=== PATIENT | female | born 1995 | race Caucasian/White ===

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

== ENCOUNTER 2017-02-23 21:36 | Observation (INO) | payer OTHER ==
[2017-02-23] MEDS: LACTATED RINGERS 1,000 ML IV ONE (22:55)
[2017-02-23 23:06] LABS: Basophils % (A) 0 %; Eosinophils % (A) 0 %; HCT 37.3 % (34.0-46.0); HGB 12.1 gm/dL (11.4-16.0); Lymphocytes % (A) 16 %; MCH 30.5 pg (25.0-35.0); MCHC 32.4 g/dL (31.0-37.0); MCV 94.2 fL (80.0-100.0); Mean Platelet Volume 7.7; Monocytes # (A) 0.4 k/uL (0-1.0); Monocytes % (A) 4 %; Neutrophils # (A) 10.1 k/uL (1.3-7.7); Neutrophils % (A) 80 %; Platelet Count 236 k/uL (150-450); RBC 3.96 m/uL (3.80-5.40); RDW 13.4 % (11.5-15.5); WBC 12.7 k/uL (4.0-11.0)
[2017-02-23 23:29] LABS: Appearance,Urine Cloudy (Clear); Bilirubin,Urine Negative (Negative); Blood,Urine Negative (Negative); Color,Urine Yellow; Glucose,Urine (UA) Negative (Negative); Ketones,Urine 4+ (Negative); Leukocyte Esterase,Urine Large (Negative); Mucus,Urine Many /hpf; Nitrite,Urine Negative (Negative); PH, Urine 6.5 (5.0-8.0); Protein,Urine 1+ (Negative); RBC,Urine 2 /hpf (0-5); Specific Gravity,Urine 1.019 (1.001-1.035); Squamous Epithelial Cell,Urine 10 /hpf (0-4); Urobilinogen,Urine <2.0 mg/dL (<2.0); WBC,Urine 13 /hpf (0-5)
[2017-02-23] MEDS ORDERED: BETAMET ACET-BETAMETH SOD PHOS 6 MG/ML VIAL IM SCH (23:45)
[2017-02-24 00:04] LABS: Amphetamine Screen,Urine Not Detected (NotDetected); Barbiturate Screen,Urine Not Detected (NotDetected); Benzodiazepines Screen,Urine Not Detected (NotDetected); Cocaine Screen,Urine Not Detected (NotDetected); Methadone Screen, Urine Not Detected (NotDetected); Opiate Screen,Urine Not Detected (NotDetected); Oxycodone Screen, Urine Not Detected (NotDetected); Phencyclidine Screen,Urine Not Detected (NotDetected); Tricyclic Antidepressant,Urine Not Detected (NotDetected); Urn Cannabinoid Scrn Detected (NotDetected)
[2017-02-24 00:31] VITALS: BMI 28.9
[2017-02-24] MEDS: LACTATED RINGERS 1,000 ML IV ONE (03:19)
--- NOTE | 2017-02-24 06:21 | P.HPOB ---
History of Present Illness H&P Date: 02/24/17 Chief Complaint: Contractions This patient is a 21-year-old 2 para 1 female estimated date of confinement 04/02/2017 estimated gestational age 34-5/7 weeks gestation who was admitted last evening with complaints of contractions. Patient states that she' s been having these contractions for several weeks but they've increased significantly yesterday. Patient's care is per Dr. Galvan it appears to be complicated by noncompliance. Patient has had a lapse in her visits however was most recently seen last week. Patient has not done glucose testing. Patient also had a recent delivery approximately 10 months ago. On admission here patient's cervix is 1 cm dilated per the nurse, fibronectin was not obtained prior to the exam. Patient is having contractions approximately every 2-4 minutes that she rates as 8 out of 10. Review of Systems Genitourinary: Reports Menstruation: Reports amenorrhea Past Medical History Past Medical History: Asthma Additional Past Medical History / Comment(s): Patient had a vaginal delivery in May of last year. This was at 39 weeks. Patient is a history of positive group B strep with previous . blood work shows she is oh positive, rubella immune, RPR nonreactive, hepatitis B is negative, HIV is nonreactive. She did not do her 1 hour Glucola. History of Any Multi-Drug Resistant Organisms: None Reported Past Surgical History: No Surgical Hx Reported Past Anesthesia/Blood Transfusion Reactions: No Reported Reaction Past Psychological History: No Psychological Hx Reported Smoking Status: Former smoker Past Alcohol Use History: None Reported Past Drug Use History: None Reported - Past Family History Father Family Medical History: Asthma, Cancer Additional Family Medical History / Comment(s): melanomna Medications and Allergies Home Medications Medication Instructions Recorded Confirmed Type Acetaminophen Tab [Tylenol Tab] 325 - 650 mg PO Q6H PRN 11/16/15 02/23/17 History Ibuprofen [Motrin] 600 mg PO Q6HR PRN #30 tab 06/02/16 02/23/17 Rx Allergies Allergy/AdvReac Type Severity Reaction Status Date / Time patel flavor Allergy Anaphylaxis Verified 02/23/17 21:46 grape Allergy Anaphylaxis Verified 02/23/17 21:46 latex Allergy Rash/Hives Verified 02/23/17 21:46 Mushroom Allergy Anaphylaxis Verified 02/23/17 21:46 shellfish derived [Shrimp] Allergy Anaphylaxis Verified 02/23/17 21:46 coconut AdvReac Nausea & Verified 02/23/17 21:46 Vomiting codeine AdvReac Swelling Verified 02/23/17 21:46 Exam - Vital Signs Vital signs: Vital Signs Temp Pulse Resp BP Pulse Ox 02/24/17 00:01 98.2 F 81 16 117/66 98 02/23/17 22:30 97 F L 93 16 118/73 98 Intake and Output 02/23/17 02/23/17 02/24/17 14:59 22:59 06:59 Other: Weight 71.668 kg 71.668 kg Patient Weight 02/24/17 06:59 Weight 71.668 kg - OBG Physical Exam Abdomen: bowel sounds normal, no diffuse tenderness, no bruit present, no guarding noted, no hepatomegaly, no splenomegaly, no mass Vulva: both: normal Cervix: no lesion, no discharge Uterus: enlarged Results CBC and urinalysis are normal. Toxicology screen is consistent with marijuana use. Result Diagrams: 02/23/17 22:55 Abnormal Lab Results - Last 24 Hours (Table) 02/23/17 02/23/17 02/23/17 Range/Units 22:55 23:10 23:10 WBC 12.7 H (4.0-11.0) k/uL Neutrophils # 10.1 H (1.3-7.7) k/uL Urine Appearance Cloudy H (Clear) Urine Protein 1+ H (Negative) Urine Ketones 4+ H (Negative) Ur Leukocyte Esterase Large H (Negative) Urine WBC 13 H (0-5) /hpf Ur Squamous Epith Cells 10 H (0-4) /hpf Urine Mucus Many H (None) /hpf U Marijuana (THC) Screen Detected H (NotDetected) Assessment and Plan Assessment: This is a 21-year-old 2 para 1 female 34-5/7 weeks' gestation with contractions. Despite IV hydration patient continues to have contractions and therefore she is going to be admitted for observation, Celestone administration, complete ultrasound this morning. Patient will need a psychosocial rehabilitation counselor consult at some point due to THC use. (1) contractions Current Visit: Yes Status: Acute Code(s): O47.9 - FALSE LABOR, UNSPECIFIED SNOMED Code(s): 702189747 (2) Substance abuse Current Visit: Yes Status: Acute Code(s): F19.10 - OTHER PSYCHOACTIVE SUBSTANCE ABUSE, UNCOMPLICATED SNOMED Code(s): 60410601
--- NOTE | 2017-02-24 06:39 | P.MSEPDOC ---
Presenting Problems - Arrival Data Date of Arrival on Unit: 02/23/17 Time of Arrival on Unit: 21:36 Mode of Transport: Portable - Complaint OB-Reason for Admission/Chief Complaint: Possible Onset of Labor Medical History - Information : 2 Para: 1 Term: 1 : 0 Abortions: Spontaneous or Elective: 0 Number of Living Children: 1 - Gestational Age Gestational Age by [place] (wks/days): 34 Weeks and 5 Days Review of Systems - Review of Systems Constitutional: No problems Breast: No problems ENT: No problems Cardiovascular: No problems Respiratory: No problems Gastrointestinal: No problems Genitourinary: No problems Musculoskeletal: No problems Neurological: No problems Skin: No problems Vital Signs - Temperature Temperature: 98.2 F Temperature Source: Temporal Artery Scan - Pulse Left Brachial Pulse Rate: 81 Pulse Assessment Method: Automatic Cuff - Respirations Respiratory Rate: 16 Oxygen Delivery Method: Room Air O2 Sat by Pulse Oximetry: 98 - Blood Pressure Left Arm Blood Pressure: 117/66 Blood Pressure Mean: 83 Blood Pressure Source: Automatic Cuff Medical Screen Scoring (Pre) - Cervical Exam Dilation: 1-3 cm = 1 Membranes: Intact - Uterine Contractions Frequency: < 36 weeks = 6 Duration: N/A Intensity: N/A - Maternal Vital Signs Maternal Temperature: N/A Maternal Blood Pressure: N/A Signs of Preeclampsia: N/A Maternal Respirations: N/A - Pain Assessment Pain Location and Character: Abdomen Pain Scale Used: Numeric (1 - 10) Pain Intensity: 8 Pain Description: *Acute, Cramping Pain Frequency: Intermittent Pain Duration: 5 Pain Duration Units: Minutes Pain Behavior: Facial Grimacing, Vocalization Pain Aggravating Factors: Contractions Non-Pharmacological Interventions: Darkened Room, Distraction - Maternal Trauma Maternal Trauma: N/A - Assessment Baseline FHR: 135 Heart Rate - NICHD Category: Category I (Normal) = 0 NST: Reactive Position: N/A Station: N/A - Total Score Total Score (Pre): 7 - Level of Risk Level of Risk: Medium (6-9) Physician Notification (Pre) - Physician Notified Physician Notified Date: 02/24/17 Physician Notified Time: 22:30 Physician/Practitioner Notifed:: Dr. Richards Spoke With: Dr. Richards New Order Received: Yes - Notification Comment Comment: Dr. Richards given report on pt in triage, c/o of contraction, reactice nst, vag. exam of /high. Contractions tracing q2-3 mins. Orders recieved for IV hyrdation, 500. ml bolus, collect CBC and urine. Call with results. Medical Screen Scoring (Post) - Cervical Exam Dilation: Exam Deferred Effacement: Exam Deferred Membranes: Intact - Uterine Contractions Frequency: < 36 weeks = 6 Duration: N/A Intensity: N/A - Maternal Vital Signs Maternal Temperature: N/A Maternal Blood Pressure: N/A Signs of Preeclampsia: N/A Maternal Respirations: N/A - Pain Assessment Pain Location and Character: Abdomen Pain Scale Used: Numeric (1 - 10) Pain Intensity: 5 Pain Frequency: Intermittent Pain Duration: 30 Pain Duration Units: Minutes Pain Behavior: None Exhibited Pain Aggravating Factors: Contractions Non-Pharmacological Interventions: Darkened Room, Inactivity - Assessment Heart Rate: 135 Heart Rate - NICHD Category: Category I (Normal) = 0 NST: Reactive Position: N/A Station: N/A - Total Score Total Score (Post): 6 - Post Treatment Level of Risk Post Treatment Level of Risk: Medium (6-9) Physician Notification (Post) - Physician Notified Physician Notified Date: 02/24/17 Physician Notified Time: 23:35 Physician/Practitioner Notified:: Dr. Richards Spoke With: Dr. Richards New Order Received: Yes - Notification Comment Comment: Dr. Richards given report on pt in triage lab results from CBC and U/A. Orders recieved to admit pt for observation, pt to be on bedrest with bathroom privledges. [place] dose of Celestone with repeat in 24 hours. Order a urine tox screen. Orders for complete u/s to be completed in am. Dr. Richards would be in early to see pt. I agree with the RN Medical Screening Exam: Yes Risk & Benefit of care provided described in d/c instruction: Yes Diagnosis: FALSE LABOR BEFORE 37 COMPLETED WEEKS OF GEST, THIRD TRI
--- NOTE | 2017-02-24 07:25 | P.DS ---
Providers Date of admission: 02/23/17 23:38 Expected date of discharge: 02/24/17 Attending physician: Sheila Galvan - Discharge Diagnosis(es) (1) contractions Current Visit: Yes Status: Acute Hospital Course: 21-year-old presented at 34 weeks and 5 days with contractions. Her cervix was 1 cm dilated, 60 effaced, and high in the pelvis. She was evans every 2 minutes upon admission and she was feeling them intensely. After some IV fluids and rest the contractions did space out and she stopped feeling them. heart tones 130-135 with moderate variability and reactive. Urinalysis was contaminated but a urine drug screen was positive for some marijuana. Ultrasound was being performed prior to discharge. She was given a dose of Celestone on 02/23/2017 11:30 at night and will need to return tonight for another dose. However since she is no longer inferiorly and the contractions and her cervix has not made any cervical change she will be discharged home. 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 Plan - Discharge Summary New Discharge Prescriptions: No Action Acetaminophen Tab [Tylenol Tab] 325 - 650 mg PO Q6H PRN PRN Reason: Pain Ibuprofen [Motrin] 600 mg PO Q6HR PRN #30 tab PRN Reason: Mild Pain Or Fever >= 100.5 Discharge Medication List Acetaminophen Tab [Tylenol Tab] 325 - 650 mg PO Q6H PRN 11/16/15 [History] Ibuprofen [Motrin] 600 mg PO Q6HR PRN #30 tab 06/02/16 [Rx] Follow up Appointment(s)/Referral(s): Sheila Galvan DO [Doctor of Osteopathic Medicine] - 1 Week
[2017-02-24 10:04] VITALS: BP 110/63; PULSE 95; RESP 18; TEMP 97.6
--- NOTE | 2017-02-24 10:16 | US ---
EXAMINATION TYPE: US OB >= 14 wk fetus DATE OF EXAM: 02/24/2017 COMPARISON: None CLINICAL HISTORY: Complete OB Ultrasound for labor TECHNIQUE: 09/09/2016 GESTATIONAL AGE / DATING Physician Established: (34 weeks/5 days) EDC: 04/02/2017 Dates by LMP: LMP unknown Dates by First Scan: (35 weeks/0 days) EDC: 03/31/2017 Dates by Current Scan: (34 weeks/0 days) EDC: 04/07/2017 Beta HCG (if available): Not available at this time SURVEY IUP: Single PLACENTA: Anterior PREVIA: No Previa GUSTABO: 11.3 cm Normal CERVICAL LENGTH (transabdominal: norm > 3.0cm): not able to obtain at this time; head low in pelvis s hadows out cervix, RN notified BIOMETRY PRESENTATION: Vertex LIE: Oblique BPD: 8.6 cm 34 weeks / 5 days HC: 30.6 cm 34 weeks / 1 days AC: 30.4 cm 34 weeks / 3 days FL: 6.7 cm 34 weeks / 3 days ESTIMATED WEIGHT IN GRAMS: 2422 grams ESTIMATED WEIGHT IN LBS/OZ: 5 lbs. 5 oz. WEIGHT PERCENTAGE BASED ON ESTABLISHED DATES: 37% HC/AC: 1.0 Normal FL/AC: 22 Normal HEART RATE: 119 bpm RHYTHM: Normal IMPRESSION: Single viable intrauterine as noted above.
== END 2017-02-24 08:10 | disposition home or self-care (01) ==
LOC: FBPOP 21:36 → 4FBP 23:38
PROVIDERS: ADMIT Obstetrics & Gynecology; ATTEND Obstetrics & Gynecology
DX: O60.03 Preterm labor without delivery, third trimester (principal); Z3A.34 34 weeks gestation of pregnancy; Z91.19 Patient's noncompliance with other medical treatment and regimen; J45.909 Unspecified asthma, uncomplicated; O99.513 Diseases of the respiratory system complicating pregnancy, third trimester; Z87.891 Personal history of nicotine dependence; Z82.5 Family history of asthma and other chronic lower respiratory diseases; Z91.02 Food additives allergy status; Z91.040 Latex allergy status; Z88.5 Allergy status to narcotic agent; Z91.018 Allergy to other foods; O99.323 Drug use complicating pregnancy, third trimester; F19.10 Other psychoactive substance abuse, uncomplicated
CPT/HCPCS: 59025; 99214; 96360 ×2; 96361; 96372 ×2; 84112; 85025; 81001; 80306; 76805; G0378 ×2; J0702

== ENCOUNTER 2017-02-24 20:07 | Outpatient (CLI) | payer OTHER ==
[2017-02-24] MEDS ORDERED: BETAMET ACET-BETAMETH SOD PHOS 6 MG/ML VIAL IM SCH (20:30)
[2017-02-24 20:38] VITALS: BP 110/67; PULSE 96; RESP 16; TEMP 98.2
--- NOTE | 2017-05-12 12:10 | P.MSEPDOC ---
Presenting Problems - Arrival Data Date of Arrival on Unit: 02/24/17 Time of Arrival on Unit: 20:07 Mode of Transport: Ambulatory Medical History - Information : 2 Para: 1 Term: 1 : 0 Abortions: Spontaneous or Elective: 0 Number of Living Children: 1 - Gestational Age Gestational Age by [place] (wks/days): 34 Weeks and 5 Days Vital Signs - Temperature Temperature: 98.2 F Temperature Source: Temporal Artery Scan - Pulse Right Brachial Pulse Rate: 96 Pulse Assessment Method: Automatic Cuff - Respirations Respiratory Rate: 16 Oxygen Delivery Method: Room Air O2 Sat by Pulse Oximetry: 100 - Blood Pressure Right Arm Blood Pressure: 110/67 Blood Pressure Mean: 81 Blood Pressure Source: Automatic Cuff Medical Screen Scoring (Post) - Cervical Exam Dilation: Exam Deferred Effacement: Exam Deferred - Uterine Contractions Frequency: N/A Duration: N/A Intensity: N/A - Maternal Vital Signs Maternal Temperature: N/A Maternal Respirations: N/A - Maternal Trauma Maternal Trauma: N/A - Assessment Heart Rate - NICHD Category: Category I (Normal) = 0 NST: Reactive Position: N/A - Total Score Total Score (Post): 0 - Post Treatment Level of Risk Post Treatment Level of Risk: Low (0-5) Physician Notification (Post) - Physician Notified Physician Notified Date: 02/24/17 Physician Notified Time: 20:31 Spoke With: sagar [place] Order Received: Yes - Notification Comment Comment: D/c home after celestone and NST Disposition - Disposition OB Disposition: Discharge to home, Written follow up instructions reviewed Discharge Date: 02/24/17 Discharge Time: 20:45 I agree with the RN Medical Screening Exam: Yes Risk & Benefit of care provided described in d/c instruction: Yes Diagnosis: LABOR WITHOUT DELIVERY, THIRD TRIMESTER
== END 2017-02-24 20:45 | disposition home or self-care (01) ==
LOC: FBPOP 20:07
PROVIDERS: ATTEND Obstetrics & Gynecology
DX: O60.03 Preterm labor without delivery, third trimester (principal); Z3A.34 34 weeks gestation of pregnancy
CPT/HCPCS: 59025; 96372; G0463; J0702; 99213

== ENCOUNTER → 2017-05-01 | Outpatient (CLI) | payer SELFPAY | END | disposition home or self-care (01) | LOC: LABWHC1 16:42 | PROVIDERS: ATTEND Obstetrics & Gynecology | DX: N91.2 Amenorrhea, unspecified (principal) | CPT/HCPCS: 36415; 84702 ==

== ENCOUNTER 2017-08-10 12:02 | Emergency (ER) | payer OTHER ==
[2017-08-10 13:16] LABS: Appearance,Urine Clear (Clear); Bilirubin,Urine Negative (Negative); Blood,Urine Moderate (Negative); Color,Urine Yellow; Glucose,Urine (UA) Negative (Negative); Ketones,Urine Negative (Negative); Leukocyte Esterase,Urine Negative (Negative); Mucus,Urine Occasional /hpf; Nitrite,Urine Negative (Negative); Protein,Urine Negative (Negative); RBC,Urine <1 /hpf (0-5); Specific Gravity,Urine 1.016 (1.001-1.035); Squamous Epithelial Cell,Urine 2 /hpf (0-4); Urobilinogen,Urine <2.0 mg/dL (<2.0); WBC,Urine 1 /hpf (0-5)
[2017-08-10 13:22] LABS: Basophils % (A) 0 %; Eosinophils # (A) 0.2 k/uL (0-0.7); Eosinophils % (A) 2 %; HCT 38.1 % (34.0-46.0); HGB 13.2 gm/dL (11.4-16.0); Lymphocytes # (A) 2.4 k/uL (1.0-4.8); Lymphocytes % (A) 35 %; MCH 30.2 pg (25.0-35.0); MCHC 34.7 g/dL (31.0-37.0); MCV 87.2 fL (80.0-100.0); Monocytes # (A) 0.3 k/uL (0-1.0); Monocytes % (A) 4 %; Neutrophils % (A) 57 %; Platelet Count 245 k/uL (150-450); RBC 4.38 m/uL (3.80-5.40); RDW 12.3 % (11.5-15.5)
[2017-08-10 13:37] LABS: ALT 32 U/L (9-52); AST 24 U/L (14-36); Albumin 4.3 g/dL (3.5-5.0); Alkaline Phosphatase 55 U/L (38-126); Anion Gap 9 mmol/L; Blood Urea Nitrogen 9 mg/dL (7-17); Calcium 9.4 mg/dL (8.4-10.2); Carbon Dioxide 26 mmol/L (22-30); Chloride 106 mmol/L (98-107); Glucose 84 mg/dL (74-99); Potassium 4.8 mmol/L (3.5-5.1); Sodium 141 mmol/L (137-145); Total Bilirubin 0.3 mg/dL (0.2-1.3); Total Protein 6.7 g/dL (6.3-8.2)
--- NOTE | 2017-08-10 13:46 | US ---
EXAMINATION TYPE: US pelvic complete DATE OF EXAM: 08/10/2017 COMPARISON: NONE CLINICAL HISTORY: Pain. TECHNIQUE: Transabdominal sonographic images of the pelvis were acquired. Date of LMP: Mid may EXAM MEASUREMENTS: Uterus: 7.4 x 3.5 x 4.6 cm Endometrial Stripe: 0.9 cm Right Ovary: 2.8 x 1.7 x 2.0 cm Left Ovary: 2.3 x 1.6 x 1.4 cm ER patient who states she may be and is having bleeding. 1. Uterus: Anteverted wnl 2. Endometrium: wnl 3. Right Ovary: wnl 4. Left Ovary: wnl 5. Bilateral Adnexa: wnl 6. Posterior cul-de-sac: wnl IMPRESSION: No current evidence of intrauterine . Correlate with beta-hCG level to determine the need for short-term follow-up serum serial beta hCGs and ultrasound. Ovaries appear unremarkable .
--- NOTE | 2017-08-10 14:00 | ED ---
General Adult HPI - General Chief complaint: Vaginal Bleeding Stated complaint: bleeding poss Time Seen by Provider: 08/10/17 12:20 Source: patient, RN notes reviewed Mode of arrival: ambulatory Limitations: no limitations - History of Present Illness Initial comments: This is a 22-year-old female presents emergency Department with chief complaint of vaginal bleeding. Patient states that she has lower abdominal cramping enlarged but clots. Patient states that she had a positive test a week to ago but states that she had negative along with a positive. Patient states she's not sure this is a false positive. Patient states that she's had 2 prior pregnancies. Patient states her INDUSTRIAL THERAPIST is Dr. Galvan. Denies any fevers or chills no dysuria. - Related Data Home Medications Medication Instructions Recorded Confirmed Acetaminophen Tab [Tylenol Tab] 1,000 mg PO Q6HR PRN 08/10/17 08/10/17 Allergies Allergy/AdvReac Type Severity Reaction Status Date / Time patel flavor Allergy Anaphylaxis Verified 08/10/17 12:19 grape Allergy Anaphylaxis Verified 08/10/17 12:19 Influenza Virus Vaccines Allergy Rash/Hives Verified 08/10/17 12:19 latex Allergy Rash/Hives Verified 08/10/17 12:19 Mushroom Allergy Anaphylaxis Verified 08/10/17 12:19 shellfish derived [Shrimp] Allergy Anaphylaxis Verified 08/10/17 12:19 coconut AdvReac Nausea & Verified 08/10/17 12:19 Vomiting codeine AdvReac Swelling Verified 08/10/17 12:19 Review of Systems ROS Statement: Those systems with pertinent positive or pertinent negative responses have been documented in the HPI. ROS Other: All systems not noted in ROS Statement are negative. Past Medical History Past Medical History: Asthma Additional Past Medical History / Comment(s): Patient had a vaginal delivery in May of last year. This was at 39 weeks. Patient is a history of positive group B strep with previous . blood work shows she is O positive, rubella immune, RPR nonreactive, hepatitis B is negative, HIV is nonreactive. She did not do her 1 hour Glucola. GBS+ History of Any Multi-Drug Resistant Organisms: None Reported Past Surgical History: No Surgical Hx Reported Past Anesthesia/Blood Transfusion Reactions: No Reported Reaction Past Psychological History: No Psychological Hx Reported Smoking Status: Former smoker Past Alcohol Use History: None Reported Past Drug Use History: Marijuana - Past Family History Father Family Medical History: Asthma, Cancer Additional Family Medical History / Comment(s): melanomna General Exam Limitations: no limitations General appearance: alert, in no apparent distress Head exam: Present: atraumatic, normocephalic, normal inspection Respiratory exam: Present: normal lung sounds bilaterally. Absent: respiratory distress, wheezes, rales, rhonchi, stridor Cardiovascular Exam: Present: regular rate, normal rhythm, normal heart sounds. Absent: systolic murmur, diastolic murmur, rubs, gallop, clicks GI/Abdominal exam: Present: soft, normal bowel sounds. Absent: distended, tenderness, guarding, rebound, rigid Back exam: Absent: CVA tenderness (R), CVA tenderness (L) Skin exam: Present: warm, dry, intact, normal color. Absent: rash Course Vital Signs 08/10/17 12:03 Temperature 98.1 F Pulse Rate 81 Respiratory 18 Rate Blood Pressure 102/68 O2 Sat by Pulse 100 Oximetry Medical Decision Making - Medical Decision Making 22-year-old female presents department for abdominal pain, vaginal bleeding. Patient has heavy vaginal bleeding secondary to 2 prior miscarriages menstrual cycles. Patient has dysfunctional uterine bleeding. Patient will follow-up with her INDUSTRIAL THERAPIST. Return parameters were discussed. - Lab Data Result diagrams: 08/10/17 13:08 08/10/17 13:08 Lab Results 08/10/17 08/10/17 08/10/17 Range/Units 12:30 12:30 13:08 WBC 7.0 (4.0-11.0) k/uL RBC 4.38 (3.80-5.40) m/uL Hgb 13.2 (11.4-16.0) gm/dL Hct 38.1 (34.0-46.0) % MCV 87.2 (80.0-100.0) fL MCH 30.2 (25.0-35.0) pg MCHC 34.7 (31.0-37.0) g/dL RDW 12.3 (11.5-15.5) % Plt Count 245 (150-450) k/uL Neutrophils % 57 % Lymphocytes % 35 % Monocytes % 4 % Eosinophils % 2 % Basophils % 0 % Neutrophils # 4.0 (1.3-7.7) k/uL Lymphocytes # 2.4 (1.0-4.8) k/uL Monocytes # 0.3 (0-1.0) k/uL Eosinophils # 0.2 (0-0.7) k/uL Basophils # 0.0 (0-0.2) k/uL Sodium (137-145) mmol/L Potassium (3.5-5.1) mmol/L Chloride (98-107) mmol/L Carbon Dioxide (22-30) mmol/L Anion Gap mmol/L BUN (7-17) mg/dL Creatinine (0.52-1.04) mg/dL Est GFR (CKD-EPI)AfAm (>60 ml/min/1.73 sqM) Est GFR (CKD-EPI)NonAf (>60 ml/min/1.73 sqM) Glucose (74-99) mg/dL Calcium (8.4-10.2) mg/dL Total Bilirubin (0.2-1.3) mg/dL AST (14-36) U/L ALT (9-52) U/L Alkaline Phosphatase (38-126) U/L Total Protein (6.3-8.2) g/dL Albumin (3.5-5.0) g/dL Urine Color Yellow Urine Appearance Clear (Clear) Urine pH 6.0 (5.0-8.0) Ur Specific [place] 1.016 (1.001-1.035) Urine Protein Negative (Negative) Urine Glucose (UA) Negative (Negative) Urine Ketones Negative (Negative) Urine Blood Moderate H (Negative) Urine Nitrite Negative (Negative) Urine Bilirubin Negative (Negative) Urine Urobilinogen <2.0 (<2.0) mg/dL Ur Leukocyte Esterase Negative (Negative) Urine RBC <1 (0-5) /hpf Urine WBC 1 (0-5) /hpf Ur Squamous Epith Cells 2 (0-4) /hpf Urine Mucus Occasional H (None) /hpf Urine HCG, Qual Not Detected (Not Detectd) 08/10/17 Range/Units 13:08 WBC (4.0-11.0) k/uL RBC (3.80-5.40) m/uL Hgb (11.4-16.0) gm/dL Hct (34.0-46.0) % MCV (80.0-100.0) fL MCH (25.0-35.0) pg MCHC (31.0-37.0) g/dL RDW (11.5-15.5) % Plt Count (150-450) k/uL Neutrophils % % Lymphocytes % % Monocytes % % Eosinophils % % Basophils % % Neutrophils # (1.3-7.7) k/uL Lymphocytes # (1.0-4.8) k/uL Monocytes # (0-1.0) k/uL Eosinophils # (0-0.7) k/uL Basophils # (0-0.2) k/uL Sodium 141 (137-145) mmol/L Potassium 4.8 (3.5-5.1) mmol/L Chloride 106 (98-107) mmol/L Carbon Dioxide 26 (22-30) mmol/L Anion Gap 9 mmol/L BUN 9 (7-17) mg/dL Creatinine 0.62 (0.52-1.04) mg/dL Est GFR (CKD-EPI)AfAm >90 (>60 ml/min/1.73 sqM) Est GFR (CKD-EPI)NonAf >90 (>60 ml/min/1.73 sqM) Glucose 84 (74-99) mg/dL Calcium 9.4 (8.4-10.2) mg/dL Total Bilirubin 0.3 (0.2-1.3) mg/dL AST 24 (14-36) U/L ALT 32 (9-52) U/L Alkaline Phosphatase 55 (38-126) U/L Total Protein 6.7 (6.3-8.2) g/dL Albumin 4.3 (3.5-5.0) g/dL Urine Color Urine Appearance (Clear) Urine pH (5.0-8.0) Ur Specific [place] (1.001-1.035) Urine Protein (Negative) Urine Glucose (UA) (Negative) Urine Ketones (Negative) Urine Blood (Negative) Urine Nitrite (Negative) Urine Bilirubin (Negative) Urine Urobilinogen (<2.0) mg/dL Ur Leukocyte Esterase (Negative) Urine RBC (0-5) /hpf Urine WBC (0-5) /hpf Ur Squamous Epith Cells (0-4) /hpf Urine Mucus (None) /hpf Urine HCG, Qual (Not Detectd) Disposition Clinical Impression: Dysfunctional uterine bleeding Disposition: HOME SELF-CARE Condition: Stable Instructions: Menstruation (ED) Additional Instructions: Please return to the Emergency Department if symptoms worsen or any other concerns. Is patient prescribed a controlled substance at d/c from ED?: No Referrals: None,Stated [Primary Care Provider] - 1-2 days Time of Disposition: 14:00
[2017-08-10 14:09] VITALS: BP 101/55; PULSE 67; RESP 16; TEMP 97.9
== END 2017-08-10 14:12 | disposition home or self-care (01) ==
LOC: EC 12:02
DX: N93.8 Other specified abnormal uterine and vaginal bleeding (principal); Z87.891 Personal history of nicotine dependence; Z88.5 Allergy status to narcotic agent; Z88.7 Allergy status to serum and vaccine; Z91.02 Food additives allergy status; Z91.013 Allergy to seafood; Z91.018 Allergy to other foods; Z91.040 Latex allergy status
CPT/HCPCS: 36415; 76856; 80053; 81001; 81025; 85025; 87086; 99284

== ENCOUNTER 2017-09-12 22:22 | Emergency (ER) | payer OTHER ==
[2017-09-12 22:36] VITALS: TEMP 99.2
[2017-09-12] MEDS ORDERED: IBUPROFEN 600 MG TAB PO STA (23:05)
--- NOTE | 2017-09-12 23:09 | ED ---
General Adult HPI - General Source: patient, RN notes reviewed Mode of arrival: ambulatory Limitations: no limitations <Kalpesh Billingsley - Last Filed: 09/12/17 23:34> <Bhupinder Dunn - Last Filed: 09/14/17 20:48> - General Chief complaint: Urogenital Stated complaint: kidney pain & knee pain Time Seen by Provider: 09/12/17 22:54 - History of Present Illness Initial comments: Patient's a 22-year-old female presents to the emergency room today with a chief complaint of possible urinary tract infection. She states that she's noticed some dysuria over the last 2 days. Patient does admit to some left- sided back pain. She states is worse with movements. She states earlier today she also began experiencing some pain in the right leg. Patient does admit to a torn ACL from 2 or 3 years ago on the side. States never had repaired. She states that she was driving the car today began having pain shooting up the leg from her toes on the right side. She states pain is worse with movements. She denies any other symptoms or complaints. Denies any injury or trauma. Patient denies any recent fever, chills, shortness of breath, chest pain, back pain, abdominal pain, nausea or vomiting, numbness or tingling, dysuria or hematuria, constipation or diarrhea, headaches or visual changes, or any other complaints. (Kalpesh Billingsley) - Related Data Home Medications Medication Instructions Recorded Confirmed Acetaminophen Tab [Tylenol Tab] 1,000 mg PO Q6HR PRN 08/10/17 09/12/17 Albuterol Inhaler [Ventolin Hfa 2 puff INHALATION RT-Q6H PRN 09/12/17 09/12/17 Inhaler] Ibuprofen [Motrin] 600 mg PO Q8HR PRN 09/12/17 09/12/17 Previous Rx's Medication Instructions Recorded Ibuprofen [Motrin] 600 mg PO Q6HR PRN #40 day 09/12/17 Phenazopyridine [Pyridium] 100 mg PO TID 3 Days day 09/12/17 Sulfamethox-Tmp 800-160Mg [Bactrim 1 tab PO Q12HR #20 tab 09/12/17 DS 800-160 mg] Allergies Allergy/AdvReac Type Severity Reaction Status Date / Time patel flavor Allergy Anaphylaxis Verified 09/12/17 22:51 grape Allergy Anaphylaxis Verified 09/12/17 22:51 Influenza Virus Vaccines Allergy Rash/Hives Verified 09/12/17 22:51 latex Allergy Rash/Hives Verified 09/12/17 22:51 Mushroom Allergy Anaphylaxis Verified 09/12/17 22:51 shellfish derived [Shrimp] Allergy Anaphylaxis Verified 09/12/17 22:51 coconut AdvReac Nausea & Verified 09/12/17 22:51 Vomiting codeine AdvReac Swelling Verified 09/12/17 22:51 Review of Systems ROS Other: All systems not noted in ROS Statement are negative. <Kalpesh Billingsley - Last Filed: 09/12/17 23:34> ROS Other: All systems not noted in ROS Statement are negative. <Bhupinder Dunn - Last Filed: 09/14/17 20:48> ROS Statement: Those systems with pertinent positive or pertinent negative responses have been documented in the HPI. Past Medical History Past Medical History: Asthma Additional Past Medical History / Comment(s): Patient had a vaginal delivery in May of last year. This was at 39 weeks. Patient is a history of positive group B strep with previous . blood work shows she is O positive, rubella immune, RPR nonreactive, hepatitis B is negative, HIV is nonreactive. She did not do her 1 hour Glucola. GBS+ History of Any Multi-Drug Resistant Organisms: None Reported Past Surgical History: No Surgical Hx Reported Past Anesthesia/Blood Transfusion Reactions: No Reported Reaction Past Psychological History: No Psychological Hx Reported Smoking Status: Current every day smoker Past Alcohol Use History: Occasional Past Drug Use History: Marijuana - Past Family History Father Family Medical History: Asthma, Cancer Additional Family Medical History / Comment(s): melanomna <Kalpesh Billingsley - Last Filed: 09/12/17 23:34> General Exam Limitations: no limitations <Kalpesh Billingsley - Last Filed: 09/12/17 23:34> <Bhupinder Dunn - Last Filed: 09/14/17 20:48> - General Exam Comments Initial Comments: General: The patient is awake and alert, in no distress, and does not appear acutely ill. Eye: Pupils are equal, round and reactive to light, extra-ocular movements are intact. No nystagmus. There is normal conjunctiva bilaterally. No signs of icterus. Ears, nose, mouth and throat: There are moist mucous membranes and no oral lesions. Neck: The neck is supple, there is no tenderness or JVD. Cardiovascular: There is a regular rate and rhythm. No murmur, rub or gallop is appreciated. Respiratory: Lungs are clear to auscultation, respirations are non-labored, breath sounds are equal. No wheezes, stridor, rales, or rhonchi. Musculoskeletal: Normal ROM. Strength 5/5. Sensation intact. Pulses equal bilaterally 2+. Neurological: A&O x 3. CN II-XII intact, There are no obvious motor or sensory deficits. Coordination appears grossly intact. Speech is normal. Skin: Skin is warm and dry and no rashes or lesions are noted. Psychiatric: Cooperative, appropriate mood & affect, normal judgment. (Kalpesh Billingsley) Vital Signs 09/12/17 09/12/17 22:33 23:17 Temperature 99.2 F Pulse Rate 111 H 102 H Respiratory 16 18 Rate Blood Pressure 112/73 103/57 O2 Sat by Pulse 99 99 Oximetry Medical Decision Making <Kalpesh Billingsley - Last Filed: 09/12/17 23:34> <Bhupinder Dunn - Last Filed: 09/14/17 20:48> - Medical Decision Making Patient's urinalysis reviewed and does show evidence for infection. Culture pending. Patient given dose Rocephin here in emergency room. Patient will be continued on antibiotics and Pyridium at home for this. Advised follow-up family doctor for repeat urinalysis. Patient has no fever. Patient advised close follow-up return to emergency room if there is any fever. Advised ibuprofen for pain. (Kalpesh Billingsley) Resident/PA attestation: I, Dr. Bhupinder Dunn, personally saw and examined the patient. I have reviewed and agree with the resident/PA findings, including all diagnostic interpretations and treatment plans as written unless otherwise stated. I was present for the ling portions of any procedures performed and inclusive time noted for any critical care statement. (Bhupinder Dunn) - Lab Data Lab Results 09/12/17 09/12/17 Range/Units 20:52 20:52 Urine Color Light Yellow Urine Appearance Cloudy H (Clear) Urine pH 8.0 (5.0-8.0) Ur Specific [place] 1.007 (1.001-1.035) Urine Protein 1+ H (Negative) Urine Glucose (UA) Negative (Negative) Urine Ketones Negative (Negative) Urine Blood Small H (Negative) Urine Nitrite Negative (Negative) Urine Bilirubin Negative (Negative) Urine Urobilinogen <2.0 (<2.0) mg/dL Ur Leukocyte Esterase Large H (Negative) Urine RBC 7 H (0-5) /hpf Urine WBC >182 H (0-5) /hpf Urine Bacteria Rare H (None) /hpf Urine Mucus Rare H (None) /hpf Urine HCG, Qual Not Detected (Not Detectd) Disposition Is patient prescribed a controlled substance at d/c from ED?: No Time of Disposition: 23:35 <Kalpesh Billingsley - Last Filed: 09/12/17 23:34> <Bhupinder Dunn - Last Filed: 09/14/17 20:48> Clinical Impression: Urinary tract infection Disposition: HOME SELF-CARE Instructions: Urinary Tract Infection in Women (ED) Additional Instructions: Please use medication as discussed. Please follow-up with family doctor in the next 2 days of symptoms have not improved. Please return to emergency room if the symptoms increase or worsen or for any other concerns. Prescriptions: Ibuprofen [Motrin] 600 mg PO Q6HR PRN #40 day PRN Reason: Pain Phenazopyridine [Pyridium] 100 mg PO TID 3 Days day Sulfamethox-Tmp 800-160Mg [Bactrim DS 800-160 mg] 1 tab PO Q12HR #20 tab Referrals: None,Stated [Primary Care Provider] - 1-2 days Ashley Abarca MD [STAFF PHYSICIAN] - 1-2 days
[2017-09-12 23:17] VITALS: BP 103/57; PULSE 102; RESP 18
[2017-09-12 23:23] LABS: Appearance,Urine Cloudy (Clear); Bacteria,Urine Rare /hpf; Bilirubin,Urine Negative (Negative); Blood,Urine Small (Negative); Color,Urine Light Yellow; Glucose,Urine (UA) Negative (Negative); Ketones,Urine Negative (Negative); Leukocyte Esterase,Urine Large (Negative); Mucus,Urine Rare /hpf; Nitrite,Urine Negative (Negative); Protein,Urine 1+ (Negative); RBC,Urine 7 /hpf (0-5); Specific Gravity,Urine 1.007 (1.001-1.035); Urobilinogen,Urine <2.0 mg/dL (<2.0); WBC,Urine >182 /hpf (0-5)
[2017-09-12] MEDS ORDERED: cefTRIAXone 1,000 MG VIAL (IM USE) IM STA (23:34)
== END 2017-09-12 23:49 | disposition home or self-care (01) ==
LOC: EC 22:22
DX: N39.0 Urinary tract infection, site not specified (principal); M79.604 Pain in right leg; J45.909 Unspecified asthma, uncomplicated; F17.200 Nicotine dependence, unspecified, uncomplicated; Z91.018 Allergy to other foods; Z88.7 Allergy status to serum and vaccine; Z91.040 Latex allergy status; Z91.013 Allergy to seafood; Z88.5 Allergy status to narcotic agent
CPT/HCPCS: 81001; 81025; 87086; 99283; 96372; J0696

== ENCOUNTER 2017-12-23 13:25 | Emergency (ER) | payer OTHER ==
[2017-12-23] MEDS ORDERED: diphenhydrAMINE 50 MG/ML 1 ML VIAL IVP STA (14:32)
[2017-12-23] MEDS ORDERED: SODIUM CHLORIDE 0.9% 1,000 ML IV STA (14:32)
[2017-12-23] MEDS ORDERED: KETOROLAC 30 MG/ML 1 ML VIAL IVP STA (14:32)
[2017-12-23] MEDS ORDERED: METOCLOPRAMIDE 5 MG/ML 2 ML VIAL IVP STA (14:32)
--- NOTE | 2017-12-23 14:32 | ED ---
General Adult HPI - General Chief complaint: Shortness of Breath Stated complaint: lung problems Time Seen by Provider: 12/23/17 14:18 Source: patient, RN notes reviewed Mode of arrival: ambulatory Limitations: no limitations - History of Present Illness Initial comments: 22-year-old female presents to the emergency room for a chief complaint of cough and shortness of breath 2 weeks. Patient states the cough is productive with yellow mucus. She states she is somewhat short of breath after coughing as well. Patient states she has mild chest pain taking a deep breath. Patient states he has a history of asthma. She states she was seen by her primary care provider yesterday and had an x-ray ordered. Patient states her primary care provider told her there were "spots" on her lungs so she was going to have her follow up with a specialist. Patient denies any other medical history. Patient states she also has vaginal bleeding 2 weeks. She denies any chance of . She states she is following up with Dr. Galvan for this and does not want to be evaluated for vaginal bleeding today. She denies any abdominal pain with this bleeding. Patient has no other complaints at this time including abdominal pain, nausea or vomiting, headache, or visual changes. - Related Data Home Medications Medication Instructions Recorded Confirmed Acetaminophen Tab [Tylenol Tab] 1,000 mg PO Q6HR PRN 08/10/17 09/12/17 Albuterol Inhaler [Ventolin Hfa 2 puff INHALATION RT-Q6H PRN 09/12/17 09/12/17 Inhaler] Ibuprofen [Motrin] 600 mg PO Q8HR PRN 09/12/17 09/12/17 Previous Rx's Medication Instructions Recorded Ibuprofen [Motrin] 600 mg PO Q6HR PRN #40 day 09/12/17 Phenazopyridine [Pyridium] 100 mg PO TID 3 Days day 09/12/17 Sulfamethox-Tmp 800-160Mg [Bactrim 1 tab PO Q12HR #20 tab 09/12/17 DS 800-160 mg] Azithromycin [Zithromax Z-pack] 250 mg PO DIRECTED #6 tab 12/23/17 predniSONE 50 mg PO DAILY #3 tablet 12/23/17 Allergies Allergy/AdvReac Type Severity Reaction Status Date / Time patel flavor Allergy Anaphylaxis Verified 12/23/17 13:38 grape Allergy Anaphylaxis Verified 12/23/17 13:38 Influenza Virus Vaccines Allergy Rash/Hives Verified 12/23/17 13:38 latex Allergy Rash/Hives Verified 12/23/17 13:38 Mushroom Allergy Anaphylaxis Verified 12/23/17 13:38 shellfish derived [Shrimp] Allergy Anaphylaxis Verified 12/23/17 13:38 coconut AdvReac Nausea & Verified 12/23/17 13:38 Vomiting codeine AdvReac Swelling Verified 12/23/17 13:38 Review of Systems ROS Statement: Those systems with pertinent positive or pertinent negative responses have been documented in the HPI. ROS Other: All systems not noted in ROS Statement are negative. Past Medical History Past Medical History: Asthma Additional Past Medical History / Comment(s): Patient had a vaginal delivery in May of last year. This was at 39 weeks. Patient is a history of positive group B strep with previous . blood work shows she is O positive, rubella immune, RPR nonreactive, hepatitis B is negative, HIV is nonreactive. She did not do her 1 hour Glucola. GBS+ History of Any Multi-Drug Resistant Organisms: None Reported Past Surgical History: No Surgical Hx Reported Past Anesthesia/Blood Transfusion Reactions: No Reported Reaction Past Psychological History: No Psychological Hx Reported Smoking Status: Current some day smoker Past Alcohol Use History: Occasional Past Drug Use History: Marijuana - Past Family History Father Family Medical History: Asthma, Cancer Additional Family Medical History / Comment(s): melanomna General Exam Limitations: no limitations General appearance: alert, in no apparent distress Head exam: Present: atraumatic, normocephalic, normal inspection Eye exam: Present: normal appearance, PERRL, EOMI. Absent: scleral icterus, conjunctival injection, periorbital swelling ENT exam: Present: normal exam, mucous membranes moist Neck exam: Present: normal inspection, full ROM. Absent: tenderness, meningismus, lymphadenopathy Respiratory exam: Present: normal lung sounds bilaterally. Absent: respiratory distress, wheezes, rales, rhonchi, stridor Cardiovascular Exam: Present: regular rate, normal rhythm, normal heart sounds. Absent: systolic murmur, diastolic murmur, rubs, gallop, clicks GI/Abdominal exam: Present: soft, normal bowel sounds. Absent: distended, tenderness, guarding, rebound, rigid Neurological exam: Present: alert, oriented X3, CN II-XII intact Psychiatric exam: Present: normal affect, normal mood Skin exam: Present: warm, dry, intact, normal color. Absent: rash Course Vital Signs 12/23/17 12/23/17 12/23/17 13:36 14:20 15:00 Temperature 98.1 F Pulse Rate 75 88 Respiratory 18 18 Rate Blood Pressure 103/72 123/102 111/76 O2 Sat by Pulse 100 98 98 Oximetry Medical Decision Making - Medical Decision Making 22-year-old well-appearing female since to the emergency department for a chief complaint of cough and shortness of breath 2 weeks. Patient states cough is productive with yellow mucus. Patient states she is short of breath after she has a coughing fit. She also has some chest pain that is worse with deep inspiration. Patient does have reproducible chest pain with palpation of the anterior chest wall. Patient does have a history of asthma. She denies smoking. Vitals are stable and patient is 100 percent on room air. Patient is not tachycardic. PERC negative. EKG was ordered which shows a normal sinus rhythm with a ventricular rate of 75, FL interval 150, QTC 433, no evidence of congruent ST elevation or depression. Chest x-ray did show correlate for bronchitis and reactive airway disease. Patient has not been using her nebulizer at home. She states she will begin using this. She was given a steroid and antibiotic treatment. She was given azithromycin as this does help with inflammation in the lungs as well as will treat any developing pneumonia. She will follow up with primary care in 1-2 days. She'll return if she has any worsening symptoms. Disposition Clinical Impression: Cough, History of asthma Disposition: HOME SELF-CARE Condition: Good Instructions: Asthma (ED), Upper Respiratory Infection (ED) Additional Instructions: Please take medications as directed. Please follow-up with primary care provider in one to 2 days. If you have any worsening symptoms return immediately to the emergency department. Prescriptions: Azithromycin [Zithromax Z-pack] 250 mg PO DIRECTED #6 tab predniSONE 50 mg PO DAILY #3 tablet Is patient prescribed a controlled substance at d/c from ED?: No Referrals: Ashley Abarca MD [Primary Care Provider] - 1-2 days Time of Disposition: 16:10
--- NOTE | 2017-12-23 14:49 | XR ---
EXAMINATION TYPE: XR chest 2V DATE OF EXAM: 12/23/2017 COMPARISON: Prior chest x-ray 08/25/2015 HISTORY: Shortness of breath, pain and inspiration, cough TECHNIQUE: Frontal and lateral views of the chest are obtained. FINDINGS: There is no focal air space opacity, pleural effusion, or pneumothorax seen. The cardiac silhouette size is within normal limits. The osseous structures are intact. There is bronchial wall thickening. IMPRESSION: Correlate for bronchitis, reactive airways disease, follow-up as indicated.
[2017-12-23 16:28] VITALS: BP 106/66; PULSE 78; RESP 16; TEMP 98.6
== END 2017-12-23 16:28 | disposition home or self-care (01) ==
LOC: EC 13:25
DX: R05 Cough (principal); R06.02 Shortness of breath; R07.9 Chest pain, unspecified; F17.200 Nicotine dependence, unspecified, uncomplicated; Z87.09 Personal history of other diseases of the respiratory system; Z91.018 Allergy to other foods; Z88.7 Allergy status to serum and vaccine; Z91.040 Latex allergy status; Z91.013 Allergy to seafood; Z88.5 Allergy status to narcotic agent
CPT/HCPCS: 93005; 71046; 99285; 96374; 96375 ×2; 96361; J1200; J2765; J1885

== ENCOUNTER → 2018-05-31 | Outpatient (CLI) | payer OTHER ==
--- NOTE | 2018-06-01 12:43 | MR ---
EXAMINATION TYPE: MR brain wo/w con DATE OF EXAM: 05/31/2018 COMPARISON: CT brain January 04, 2018. HISTORY: Headache unusual duration per order. TECHNIQUE: Multiplanar, multisequence images of the brain and brainstem is performed without and with IV contras t, utilizing 6 mL intravenous Gadavist . FINDINGS: Diffusion weighted images demonstrate no evidence of a recent infarct or other diffusion ab normality. There is no worrisome extra-axial fluid collection. The ventricular system and cisternal spaces are normal in size and appearance. The brain volume is age appropriate. There are single 3 t o 4 mm right parietal deep white matter lesion axial image 18 which is nonspecific. Midline structures demonstrate normal morphology. The craniocervical junction appears within normal limits. Post contrast images demonstrate no abnormal enhancement. The dural venous sinuses appear pa tent. The visualized sinuses are clear and the globes are intact. IMPRESSION: No suspicious findings seen to account for patient's symptoms of unusual headache.
== END | disposition home or self-care (01) ==
LOC: RADMRIMAIN 11:39
PROVIDERS: ATTEND Psychiatry & Neurology Neurology
DX: R51 Headache (principal); Z88.5 Allergy status to narcotic agent; Z91.040 Latex allergy status; Z91.013 Allergy to seafood; Z91.018 Allergy to other foods
CPT/HCPCS: 70553; A9585

== ENCOUNTER 2018-07-01 20:36 | Emergency (ER) | payer OTHER ==
[2018-07-01] MEDS ORDERED: ACETAMINOPHEN TAB 325 MG TAB PO STA (21:04)
[2018-07-01 21:19] LABS: Basophils % (A) 0 %; Eosinophils # (A) 0.2 k/uL (0-0.7); Eosinophils % (A) 2 %; HCT 37.2 % (34.0-46.0); HGB 12.3 gm/dL (11.4-16.0); Lymphocytes # (A) 3.5 k/uL (1.0-4.8); Lymphocytes % (A) 27 %; MCH 29.5 pg (25.0-35.0); MCV 89.3 fL (80.0-100.0); Mean Platelet Volume 6.8; Monocytes # (A) 0.5 k/uL (0-1.0); Monocytes % (A) 4 %; Neutrophils # (A) 8.6 k/uL (1.3-7.7); Neutrophils % (A) 65 %; Platelet Count 242 k/uL (150-450); RBC 4.17 m/uL (3.80-5.40); RDW 12.2 % (11.5-15.5); WBC 13.1 k/uL (3.8-10.6)
[2018-07-01 21:25] LABS: Amorphous Sediment,Urine Rare /hpf; Appearance,Urine Cloudy (Clear); Bilirubin,Urine Negative (Negative); Blood,Urine Trace (Negative); Color,Urine Light Yellow; Glucose,Urine (UA) Negative (Negative); Ketones,Urine Negative (Negative); Leukocyte Esterase,Urine Small (Negative); Mucus,Urine Rare /hpf; Nitrite,Urine Negative (Negative); PH, Urine 6.5 (5.0-8.0); Protein,Urine Negative (Negative); Specific Gravity,Urine 1.016 (1.001-1.035); Squamous Epithelial Cell,Urine 7 /hpf (0-4); Urobilinogen,Urine <2.0 mg/dL (<2.0)
[2018-07-01 21:28] LABS: ALT 23 U/L (9-52); AST 18 U/L (14-36); Albumin 4.3 g/dL (3.5-5.0); Alkaline Phosphatase 53 U/L (38-126); Anion Gap 8 mmol/L; Blood Urea Nitrogen 11 mg/dL (7-17); Calcium 9.7 mg/dL (8.4-10.2); Carbon Dioxide 26 mmol/L (22-30); Chloride 102 mmol/L (98-107); Glucose 69 mg/dL (74-99); Potassium 3.8 mmol/L (3.5-5.1); Sodium 136 mmol/L (137-145); Total Bilirubin <0.1 mg/dL (0.2-1.3); Total Protein 6.8 g/dL (6.3-8.2)
--- NOTE | 2018-07-01 21:31 | ED ---
General Adult HPI - General Source: patient, RN notes reviewed, old records reviewed Mode of arrival: ambulatory Limitations: no limitations <Ronny Hernández - Last Filed: 07/01/18 22:48> <Yvonne Santillan - Last Filed: 07/02/18 06:15> - General Chief complaint: Abdominal Pain Stated complaint: ,cramping Time Seen by Provider: 07/01/18 20:45 - History of Present Illness Initial comments: 23-year-old female patient presents to ED with suprapubic abdominal pain, vaginal vomiting. Patient states that the abdominal pain began approximately one hour prior to presentation to ED. Describes it as a cramping pain which comes and goes. Patient reports that last 2 days she has had vaginal spotting. Patient states that her last normal period was on 04/21/18. Patient states that she has had 3 positive tests since then. Patient denies any other complaints at this time. Systemic: Pt denies fatigue, myalgia, fever/chills, rash. Pt denies weakness, night sweats, weight loss. Neuro: Pt denies headache, visual disturbances, syncope or pre-syncope. HEENT: Pt denies ocular discharge or irritation, otalgia, rhinorrhea, pharyngitis or notable lymphadenopathy. Cardiopulmonary: Pt denies chest pain, SOB, heart palpitations, dyspnea on exertion. Abdominal/GI: Pt denies n/v/d. : Pt denies dysuria, burning w/ urination, frequency/urgency. Denies new onset urinary or bowel incontinence. MSK: Pt denies myalgia, loss of strength or function in extremities. Neuro: Pt denies new onset weakness, paresthesias. (Ronny Hernández) - Related Data Home Medications Medication Instructions Recorded Confirmed Acetaminophen Tab [Tylenol Tab] 1,000 mg PO Q6HR PRN 08/10/17 09/12/17 Albuterol Inhaler [Ventolin Hfa 2 puff INHALATION RT-Q6H PRN 09/12/17 09/12/17 Inhaler] Ibuprofen [Motrin] 600 mg PO Q8HR PRN 09/12/17 09/12/17 Previous Rx's Medication Instructions Recorded Ibuprofen [Motrin] 600 mg PO Q6HR PRN #40 day 09/12/17 Phenazopyridine [Pyridium] 100 mg PO TID 3 Days day 09/12/17 Sulfamethox-Tmp 800-160Mg [Bactrim 1 tab PO Q12HR #20 tab 09/12/17 DS 800-160 mg] Azithromycin [Zithromax Z-pack] 250 mg PO DIRECTED #6 tab 12/23/17 predniSONE 50 mg PO DAILY #3 tablet 12/23/17 Cephalexin [Keflex] 500 mg PO Q12HR 7 Days cap 07/01/18 Pnv No.95/Ferrous Fum/Folic AC 1 each PO Q24HR 30 Days #30 tablet 07/01/18 [ Multivitamin Tablet] Allergies Allergy/AdvReac Type Severity Reaction Status Date / Time patel flavor Allergy Anaphylaxis Verified 07/01/18 20:38 grape Allergy Anaphylaxis Verified 07/01/18 20:38 Influenza Virus Vaccines Allergy Rash/Hives Verified 07/01/18 20:38 latex Allergy Rash/Hives Verified 07/01/18 20:38 Mushroom Allergy Anaphylaxis Verified 07/01/18 20:38 shellfish derived [Shrimp] Allergy Anaphylaxis Verified 07/01/18 20:38 coconut AdvReac Nausea & Verified 07/01/18 20:38 Vomiting codeine AdvReac Swelling Verified 07/01/18 20:38 Review of Systems ROS Other: All systems not noted in ROS Statement are negative. <Ronny Hernández - Last Filed: 07/01/18 22:48> ROS Other: All systems not noted in ROS Statement are negative. <Yvonne Santillan - Last Filed: 07/02/18 06:15> ROS Statement: Those systems with pertinent positive or pertinent negative responses have been documented in the HPI. Past Medical History Past Medical History: Asthma Additional Past Medical History / Comment(s): Patient had a vaginal delivery in May of last year. This was at 39 weeks. Patient is a history of positive group B strep with previous . blood work shows she is O positive, rubella immune, RPR nonreactive, hepatitis B is negative, HIV is nonreactive. She did not do her 1 hour Glucola. GBS+ History of Any Multi-Drug Resistant Organisms: None Reported Past Surgical History: No Surgical Hx Reported Past Anesthesia/Blood Transfusion Reactions: No Reported Reaction Past Psychological History: No Psychological Hx Reported Smoking Status: Former smoker Past Alcohol Use History: Occasional Past Drug Use History: Marijuana - Past Family History Father Family Medical History: Asthma, Cancer Additional Family Medical History / Comment(s): melanomna <Ronny Hernández - Last Filed: 07/01/18 22:48> General Exam Limitations: no limitations <Ronny Hernández - Last Filed: 07/01/18 22:48> - General Exam Comments Initial Comments: Constitutional: NAD, AOX3, Pt has pleasant affect. HEENT: NC/AT, trachea midline, neck supple, no lymphadenopathy. Posterior pharyn x non erythematous, without exudates. External ears appear normal, without discharge. Mucous membranes moist. Eyes PERRLA, EOM intact. There is no scleral icterus. No pallor noted. Cardiopulmonary: RRR, no murmurs, rubs or gallops, no JVD noted. Lungs CTAB in anterior and posterior charles. No peripheral edema. Abdominal exam: Abdomen soft and non-distended. Abdomen mildly tender to palpation in suprapubic region. Improved on repeat exam. Bowel sounds active in LLQ. No hepatosplenomegaly. No ecchymosis Neuro: CN II-XII grossly intact. No nuchal rigidity. MSK: No posterior calf tenderness bilaterally, homans sign negative bilaterally. Posterior tibialis and radial pulse +2 bilaterally. Sensation intact in upper and lower extremities. Full active ROM in upper and lower extremities, 5/5 st regnth. (Ronny Hernández) Course Vital Signs 07/01/18 07/01/18 20:38 23:17 Temperature 98.1 F 96.9 F L Pulse Rate 82 83 Respiratory 16 20 Rate Blood Pressure 111/79 104/72 O2 Sat by Pulse 99 98 Oximetry Medical Decision Making - Lab Data Result diagrams: 07/01/18 21:06 07/01/18 21:06 <Ronny Hernández - Last Filed: 07/01/18 22:48> - Lab Data Result diagrams: 07/01/18 21:06 07/01/18 21:06 <Yvonne Santillan - Last Filed: 07/02/18 06:15> - Medical Decision Making 23-year-old female patient presents to ED with suprapubic abdominal pain, vaginal vomiting. Patient states that the abdominal pain began approximately one hour prior to presentation to ED. Describes it as a cramping pain which c omes and goes. Patient reports that last 2 days she has had vaginal spotting. Patient states that her last normal period was on 04/21/18. Patient states that she has had 3 positive tests since then. Patient denies any other complaints at this time. Patient vital signs stable, afebrile. Physical exam displayed: Abdomen soft and non-distended. Abdomen mildly tender to palpation in suprapubic region. Improved on repeat exam. Lymph MSK she ovalocytosis of 18. Likely reactive. CMP non-impressive. UA displayed asymptomatic bacteriuria. Influenza negative. Blood type O positive. US displayed viable IUP 8 weeks. Pt will be DC with keflex, vitamins. Pt has f/u with utilization management um nurse monday. PT annemarie lreturn to ER if condition worsens. Case discussed with Dr. Ramirez. (Ronny Hernández) I was available for consultation in the emergency department. The history and physical exam were done by the midlevel provider. I was consulted for this patient's care. I reviewed the case with the midlevel provider and based on their presentation of the patient, I agree with the assessment, medical decision making and plan of care as documented. Chart was dictated using [employer] dictation software. Attempts were made to correct any dictation errors however some typographical errors may persist. (Yvonne Santillan) - Lab Data Lab Results 07/01/18 07/01/18 07/01/18 Range/Units 21:06 21:06 21:06 WBC 13.1 H (3.8-10.6) k/uL RBC 4.17 (3.80-5.40) m/uL Hgb 12.3 (11.4-16.0) gm/dL Hct 37.2 (34.0-46.0) % MCV 89.3 (80.0-100.0) fL MCH 29.5 (25.0-35.0) pg MCHC 33.0 (31.0-37.0) g/dL RDW 12.2 (11.5-15.5) % Plt Count 242 (150-450) k/uL Neutrophils % 65 % Lymphocytes % 27 % Monocytes % 4 % Eosinophils % 2 % Basophils % 0 % Neutrophils # 8.6 H (1.3-7.7) k/uL Lymphocytes # 3.5 (1.0-4.8) k/uL Monocytes # 0.5 (0-1.0) k/uL Eosinophils # 0.2 (0-0.7) k/uL Basophils # 0.0 (0-0.2) k/uL Sodium 136 L (137-145) mmol/L Potassium 3.8 (3.5-5.1) mmol/L Chloride 102 (98-107) mmol/L Carbon Dioxide 26 (22-30) mmol/L Anion Gap 8 mmol/L BUN 11 (7-17) mg/dL Creatinine 0.54 (0.52-1.04) mg/dL Est GFR (CKD-EPI)AfAm >90 (>60 ml/min/1.73 sqM) Est GFR (CKD-EPI)NonAf >90 (>60 ml/min/1.73 sqM) Glucose 69 L (74-99) mg/dL Calcium 9.7 (8.4-10.2) mg/dL Total Bilirubin <0.1 L (0.2-1.3) mg/dL AST 18 (14-36) U/L ALT 23 (9-52) U/L Alkaline Phosphatase 53 (38-126) U/L Total Protein 6.8 (6.3-8.2) g/dL Albumin 4.3 (3.5-5.0) g/dL Urine Color Urine Appearance (Clear) Urine pH (5.0-8.0) Ur Specific Pollock (1.001-1.035) Urine Protein (Negative) Urine Glucose (UA) (Negative) Urine Ketones (Negative) Urine Blood (Negative) Urine Nitrite (Negative) Urine Bilirubin (Negative) Urine Urobilinogen (<2.0) mg/dL Ur Leukocyte Esterase (Negative) Urine WBC Clumps (None) /hpf Ur Squamous Epith Cells (0-4) /hpf Amorphous Sediment (None) /hpf Urine Mucus (None) /hpf Urine HCG, Qual Detected (Not Detectd) Influenza Type A RNA (Not Detectd) Influenza Type B (PCR) (Not Detectd) Blood Type Blood Type Recheck Antibody Screen Spec Expiration Date 07/01/18 07/01/18 07/01/18 Range/Units 21:06 21:06 21:17 WBC (3.8-10.6) k/uL RBC (3.80-5.40) m/uL Hgb (11.4-16.0) gm/dL Hct (34.0-46.0) % MCV (80.0-100.0) fL MCH (25.0-35.0) pg MCHC (31.0-37.0) g/dL RDW (11.5-15.5) % Plt Count (150-450) k/uL Neutrophils % % Lymphocytes % % Monocytes % % Eosinophils % % Basophils % % Neutrophils # (1.3-7.7) k/uL Lymphocytes # (1.0-4.8) k/uL Monocytes # (0-1.0) k/uL Eosinophils # (0-0.7) k/uL Basophils # (0-0.2) k/uL Sodium (137-145) mmol/L Potassium (3.5-5.1) mmol/L Chloride (98-107) mmol/L Carbon Dioxide (22-30) mmol/L Anion Gap mmol/L BUN (7-17) mg/dL Creatinine (0.52-1.04) mg/dL Est GFR (CKD-EPI)AfAm (>60 ml/min/1.73 sqM) Est GFR (CKD-EPI)NonAf (>60 ml/min/1.73 sqM) Glucose (74-99) mg/dL Calcium (8.4-10.2) mg/dL Total Bilirubin (0.2-1.3) mg/dL AST (14-36) U/L ALT (9-52) U/L Alkaline Phosphatase (38-126) U/L Total Protein (6.3-8.2) g/dL Albumin (3.5-5.0) g/dL Urine Color Light Yellow Urine Appearance Cloudy H (Clear) Urine pH 6.5 (5.0-8.0) Ur Specific Pollock 1.016 (1.001-1.035) Urine Protein Negative (Negative) Urine Glucose (UA) Negative (Negative) Urine Ketones Negative (Negative) Urine Blood Trace H (Negative) Urine Nitrite Negative (Negative) Urine Bilirubin Negative (Negative) Urine Urobilinogen <2.0 (<2.0) mg/dL Ur Leukocyte Esterase Small H (Negative) Urine WBC Clumps Occasional H (None) /hpf Ur Squamous Epith Cells 7 H (0-4) /hpf Amorphous Sediment Rare H (None) /hpf Urine Mucus Rare H (None) /hpf Urine HCG, Qual (Not Detectd) Influenza Type A RNA Not Detected (Not Detectd) Influenza Type B (PCR) Not Detected (Not Detectd) Blood Type O Positive Blood Type Recheck No Antibody Screen NEGATIVE Spec Expiration Date 07/04/2018 - 2306 Disposition Is patient prescribed a controlled substance at d/c from ED?: No <Ronny Hernández - Last Filed: 07/01/18 22:48> <Yvonne Santillan - Last Filed: 07/02/18 06:15> Clinical Impression: Threatened , Disposition: HOME SELF-CARE Condition: Stable Instructions (If sedation given, give patient instructions): Threatened Miscarriage (ED), (ED) Additional Instructions: Patient to adhere to previously discussed treatment plan and will take medication(s) as directed. Patient to follow up with PCP in 1-2 days. Patient to return to ED if symptoms do not improve. Follow-up with primary care provider tomorrow. Follow up with [facility]. Take medication as prescribed. Return to ER if condition worsens. Prescriptions: Cephalexin [Keflex] 500 mg PO Q12HR 7 Days cap Pnv No.95/Ferrous Fum/Folic AC [ Multivitamin Tablet] 1 each PO Q24HR 30 Days #30 tablet Referrals: None,Stated [Primary Care Provider] - 1-2 days
--- NOTE | 2018-07-01 22:08 | US ---
EXAMINATION TYPE: Transabdominal DATE OF EXAM: 07/01/2018 9:50 PM COMPARISON: NONE CLINICAL HISTORY: Pain. cramping with EXAM PERFORMED: Transabdominal (TA) EXAM MEASUREMENTS: GESTATIONAL AGE / DATING Physician Established: Not yet established Dates by LMP: 04/21/2018 ( 10 weeks/1 days) EDC: 01/26/2019 Dates by First Scan: No previous this is first scan Dates by Current Scan for: (8 weeks/0 days) EDC: 02/10/2019 MATERNAL ANATOMY Uterus: 13.0 x 6.9 x 7.5 cm Right Ovary: 2.9 x 2.1 x 2.9 cm Left Ovary: 3.5 x 2.4 x 2.5 cm Post CDS / Adnexa: wnl Presence of free fluid: none GESTATION / SURVEY CRL: 1.6 cm (8 weeks/0 days) Yolk Sac (normal less than 6mm): 0.3 cm Heart Rate: 157 bpm Rhythm: Normal IUP: Viable IUP Date of LMP: 04/21/2018 Beta HcG (if available): not available Viable IUP at 8 weeks 0 days. IMPRESSION: No complicating process seen.
[2018-07-01 23:18] VITALS: BP 104/72; PULSE 83; RESP 20; TEMP 96.9
== END 2018-07-01 23:20 | disposition home or self-care (01) ==
LOC: EC 20:36
DX: O20.0 Threatened abortion (principal); O99.89 Other specified diseases and conditions complicating pregnancy, childbirth and the puerperium; R82.71 Bacteriuria; O99.111 Other diseases of the blood and blood-forming organs and certain disorders involving the immune mechanism complicating pregnancy, first trimester; D58.1 Hereditary elliptocytosis; Z67.40 Type O blood, Rh positive; O99.511 Diseases of the respiratory system complicating pregnancy, first trimester; J45.909 Unspecified asthma, uncomplicated; Z87.891 Personal history of nicotine dependence; Z88.5 Allergy status to narcotic agent; Z88.7 Allergy status to serum and vaccine; Z91.013 Allergy to seafood; Z91.018 Allergy to other foods; Z91.040 Latex allergy status; Z3A.08 8 weeks gestation of pregnancy
CPT/HCPCS: 36415; 76801; 80053; 81001; 81025; 85025; 86850; 86900; 86901; 87502; 99284

== ENCOUNTER 2018-07-17 19:25 | Emergency (ER) | payer OTHER ==
[2018-07-17 20:05] VITALS: BP 104/74; PULSE 83; RESP 18; TEMP 98.7
--- NOTE | 2018-07-17 21:18 | XR ---
PROCEDURE: XR knee complete RT - 3V DATE AND TIME: 07/17/2018 8:22 PM CLINICAL INDICATION: PHH; Pain TECHNIQUE: Department protocol COMPARISON: None FINDINGS: There is no fracture or malalignment. The soft tissues are unremarkable. IMPRESSION: NO ACUTE PROCESS.
--- NOTE | 2018-07-17 21:41 | ED ---
Lower Extremity Injury HPI - General Chief Complaint: Extremity Injury, Lower Stated Complaint: R leg pain, 10 weeks, blurred vison Time Seen by Provider: 07/17/18 21:11 Source: patient, RN notes reviewed, old records reviewed Mode of arrival: wheelchair Limitations: physical limitation - History of Present Illness Initial Comments: This is a 23-year-old female the ER with right knee pain. History of ACL tear in that right knee, never had surgery for replacement and she has had 3 pregnancies since the initial injury. Patient had a re-issue with some pain in that right knee, mild pain with ambulation. Denies any other significant complaint Complaint: knee injury -: days(s) Injury: Knee: Right Place: home Severity: mild Severity scale (1-10): 3 Improves With: nothing Worsens With: nothing Other Symptoms: loss of consciousness Associated Symptoms: able to partially bear weight - Related Data Home Medications Medication Instructions Recorded Confirmed Acetaminophen Tab [Tylenol Tab] 1,000 mg PO Q6HR PRN 08/10/17 09/12/17 Albuterol Inhaler [Ventolin Hfa 2 puff INHALATION RT-Q6H PRN 09/12/17 09/12/17 Inhaler] Ibuprofen [Motrin] 600 mg PO Q8HR PRN 09/12/17 09/12/17 Previous Rx's Medication Instructions Recorded Ibuprofen [Motrin] 600 mg PO Q6HR PRN #40 day 09/12/17 Phenazopyridine [Pyridium] 100 mg PO TID 3 Days day 09/12/17 Sulfamethox-Tmp 800-160Mg [Bactrim 1 tab PO Q12HR #20 tab 09/12/17 DS 800-160 mg] Azithromycin [Zithromax Z-pack] 250 mg PO DIRECTED #6 tab 12/23/17 predniSONE 50 mg PO DAILY #3 tablet 12/23/17 Cephalexin [Keflex] 500 mg PO Q12HR 7 Days cap 07/01/18 Pnv No.95/Ferrous Fum/Folic AC 1 each PO Q24HR 30 Days #30 tablet 07/01/18 [ Multivitamin Tablet] Allergies Allergy/AdvReac Type Severity Reaction Status Date / Time bee venom protein (honey bee) Allergy Anaphylaxis Verified 07/17/18 20:06 patel flavor Allergy Anaphylaxis Verified 07/17/18 20:05 grape Allergy Anaphylaxis Verified 07/17/18 20:05 Influenza Virus Vaccines Allergy Rash/Hives Verified 07/17/18 20:05 latex Allergy Rash/Hives Verified 07/17/18 20:05 Mushroom Allergy Anaphylaxis Verified 07/17/18 20:05 shellfish derived [Shrimp] Allergy Anaphylaxis Verified 07/17/18 20:05 coconut AdvReac Nausea & Verified 07/17/18 20:05 Vomiting codeine AdvReac Swelling Verified 07/17/18 20:05 Review of Systems ROS Statement: Those systems with pertinent positive or pertinent negative responses have been documented in the HPI. ROS Other: All systems not noted in ROS Statement are negative. Past Medical History Past Medical History: Asthma Additional Past Medical History / Comment(s): Patient is a history of positive group B strep with previous . blood work shows she is O positive, rubella immune, RPR nonreactive, hepatitis B is negative, HIV is nonreactive. She did not do her 1 hour [place],. GBS+ History of Any Multi-Drug Resistant Organisms: None Reported Past Surgical History: No Surgical Hx Reported Past Anesthesia/Blood Transfusion Reactions: No Reported Reaction Past Psychological History: No Psychological Hx Reported Smoking Status: Former smoker Past Alcohol Use History: Occasional Past Drug Use History: Marijuana - Past Family History Father Family Medical History: Asthma, Cancer Additional Family Medical History / Comment(s): melanomna General Exam Limitations: physical limitation General appearance: alert, in no apparent distress Head exam: Present: atraumatic, normocephalic, normal inspection Eye exam: Present: normal appearance, PERRL, EOMI. Absent: scleral icterus, conjunctival injection, periorbital swelling ENT exam: Present: normal exam, mucous membranes moist Neck exam: Present: normal inspection. Absent: tenderness, meningismus, lymphadenopathy Respiratory exam: Present: normal lung sounds bilaterally. Absent: respiratory distress, wheezes, rales, rhonchi, stridor Cardiovascular Exam: Present: regular rate, normal rhythm, normal heart sounds. Absent: systolic murmur, diastolic murmur, rubs, gallop, clicks GI/Abdominal exam: Present: soft, normal bowel sounds. Absent: distended, tenderness, guarding, rebound, rigid Extremities exam: Present: normal inspection, full ROM, normal capillary refill. Absent: tenderness, pedal edema, joint swelling, calf tenderness Back exam: Present: normal inspection Neurological exam: Present: alert, oriented X3, CN II-XII intact Psychiatric exam: Present: normal affect, normal mood Skin exam: Present: warm, dry, intact, normal color. Absent: rash Course Vital Signs 07/17/18 20:01 Temperature 98.7 F Pulse Rate 83 Respiratory 18 Rate Blood Pressure 104/74 O2 Sat by Pulse 98 Oximetry Medical Decision Making - Medical Decision Making 23 female the ER for evaluation of right knee pain. History of ACL injury, patient does have splint at home as well as crutches and cane. Patient can be discharged - Radiology Data Radiology results: report reviewed (X-ray right knee is negative for acute disease), image reviewed Disposition Clinical Impression: Right knee sprain Disposition: HOME SELF-CARE Condition: Good Instructions (If sedation given, give patient instructions): Knee Sprain (ED) Is patient prescribed a controlled substance at d/c from ED?: No Referrals: None,Stated [Primary Care Provider] - 1-2 days
== END 2018-07-17 21:45 | disposition home or self-care (01) ==
LOC: EC 19:25
DX: O9A.211 Injury, poisoning and certain other consequences of external causes complicating pregnancy, first trimester (principal); S83.91XA Sprain of unspecified site of right knee, initial encounter; O99.511 Diseases of the respiratory system complicating pregnancy, first trimester; J45.909 Unspecified asthma, uncomplicated; Z87.891 Personal history of nicotine dependence; Z88.5 Allergy status to narcotic agent; Z88.7 Allergy status to serum and vaccine; Z91.02 Food additives allergy status; Z91.013 Allergy to seafood; Z91.018 Allergy to other foods; Z91.040 Latex allergy status; Z3A.10 10 weeks gestation of pregnancy; X58.XXXA Exposure to other specified factors, initial encounter; Y92.009 Unspecified place in unspecified non-institutional (private) residence as the place of occurrence of the external cause
CPT/HCPCS: 99284

== ENCOUNTER 2018-09-09 20:01 | Emergency (ER) | payer OTHER ==
[2018-09-09 20:12] VITALS: BP 108/70; PULSE 78; RESP 18; TEMP 98.3
[2018-09-09] MEDS ORDERED: SODIUM CHLORIDE 0.9% 1,000 ML IV ONE (21:13)
[2018-09-09 21:22] LABS: Appearance,Urine Clear (Clear); Bacteria,Urine Rare /hpf; Bilirubin,Urine Negative (Negative); Blood,Urine Negative (Negative); Budding Yeast,Urine Occasional /hpf; Color,Urine Light Yellow; Glucose,Urine (UA) Negative (Negative); Ketones,Urine Negative (Negative); Leukocyte Esterase,Urine Large (Negative); Mucus,Urine Rare /hpf; Nitrite,Urine Negative (Negative); PH, Urine 6.5 (5.0-8.0); Protein,Urine Negative (Negative); RBC,Urine 1 /hpf (0-5); Specific Gravity,Urine 1.008 (1.001-1.035); Squamous Epithelial Cell,Urine 6 /hpf (0-4); Urobilinogen,Urine <2.0 mg/dL (<2.0); WBC,Urine 51 /hpf (0-5)
[2018-09-09] MEDS ORDERED: cefTRIAXone IN SWFI 1,000 MG/10 ML SYRINGE IVP STA (21:50)
[2018-09-09 22:03] LABS: Basophils % (A) 0 %; Eosinophils # (A) 0.3 k/uL (0-0.7); Eosinophils % (A) 2 %; HCT 36.1 % (34.0-46.0); HGB 11.7 gm/dL (11.4-16.0); Lymphocytes % (A) 22 %; MCH 29.2 pg (25.0-35.0); MCHC 32.5 g/dL (31.0-37.0); Mean Platelet Volume 6.8; Monocytes # (A) 0.6 k/uL (0-1.0); Monocytes % (A) 4 %; Neutrophils # (A) 9.3 k/uL (1.3-7.7); Neutrophils % (A) 70 %; Platelet Count 221 k/uL (150-450); RBC 4.02 m/uL (3.80-5.40); RDW 12.6 % (11.5-15.5); WBC 13.4 k/uL (3.8-10.6)
[2018-09-09 22:20] LABS: ALT 8 U/L (9-52); AST 14 U/L (14-36); African American GFR (CKD) >90 (>60 ml/min/1.73 sqM); Albumin 3.7 g/dL (3.5-5.0); Alkaline Phosphatase 56 U/L (38-126); Anion Gap 10 mmol/L; Blood Urea Nitrogen 6 mg/dL (7-17); Calcium 9.1 mg/dL (8.4-10.2); Carbon Dioxide 21 mmol/L (22-30); Chloride 105 mmol/L (98-107); Glucose 90 mg/dL (74-99); Potassium 4.4 mmol/L (3.5-5.1); Sodium 136 mmol/L (137-145); Total Bilirubin 0.2 mg/dL (0.2-1.3); Total Protein 6.5 g/dL (6.3-8.2)
--- NOTE | 2018-09-09 22:43 | ED ---
Female Urogenital HPI - General Source: patient Mode of arrival: ambulatory Limitations: no limitations - History of Present Illness Last Menstrual Period: 04/20/18 <Chelsea Montejo - Last Filed: 09/10/18 00:37> <Yvonne Santillan - Last Filed: 09/10/18 02:18> - General Chief complaint: Vaginal Bleeding Stated complaint: 18 wks ,bleeding Time Seen by Provider: 09/09/18 20:37 - History of Present Illness Initial comments: 23-year-old female patient presents to the emergency department today for evaluation of suprapubic cramping, vaginal bleeding, and back pain. Patient is currently 18 weeks . She is . Currently receiving care with Dr. Galvan. Patient states for the last 2-3 days she has been having some vaginal bleeding. States this started as of bright red blood and has transitioned to dark brown in color. Patient states it is mild she does not have to wear a pad. Patient states this started after having sexual intercourse 2 days ago. Patient states she has abstained from sexual intercourse but the bleeding continued causing her to be concerned. Patient states she is having some frequency in urination and has been having increase in back pain when she urinates. She denies any constipation or diarrhea. Denies any nausea or vomiting. States that she has had an increase in vaginal discharge. States it is white in color does not have an odor. Denies any itching. Denies any fever or chills. Patient denies any recent rash, shortness breath, chest pain, numbness, tingling, dizziness, weakness, headache, visual changes, or any other complaints. (Chelsea Montejo) - Related Data Home Medications Medication Instructions Recorded Confirmed Acetaminophen Tab [Tylenol Tab] 1,000 mg PO Q6HR PRN 08/10/17 09/09/18 Albuterol Inhaler [Ventolin Hfa 2 puff INHALATION RT-Q6H PRN 09/12/17 09/09/18 Inhaler] Artificial Tears-Hypromellose 1 drop BOTH EYES QID PRN 09/09/18 09/09/18 [Artificial Tear Drops] Previous Rx's Medication Instructions Recorded Cephalexin [Keflex] 500 mg PO Q6HR #40 cap 09/09/18 Allergies Allergy/AdvReac Type Severity Reaction Status Date / Time bee venom protein (honey bee) Allergy Anaphylaxis Verified 09/09/18 20:51 patel flavor Allergy Anaphylaxis Verified 09/09/18 20:51 grape Allergy Anaphylaxis Verified 09/09/18 20:51 Influenza Virus Vaccines Allergy Rash/Hives Verified 09/09/18 20:51 latex Allergy Rash/Hives Verified 09/09/18 20:51 Mushroom Allergy Anaphylaxis Verified 09/09/18 20:51 shellfish derived [Shrimp] Allergy Anaphylaxis Verified 09/09/18 20:51 coconut AdvReac Nausea & Verified 09/09/18 20:51 Vomiting codeine AdvReac Swelling Verified 09/09/18 20:51 Review of Systems ROS Other: All systems not noted in ROS Statement are negative. <Chelsea Montejo - Last Filed: 09/10/18 00:37> ROS Other: All systems not noted in ROS Statement are negative. <Yvonne Santillan - Last Filed: 09/10/18 02:18> ROS Statement: Those systems with pertinent positive or pertinent negative responses have been documented in the HPI. Past Medical History Past Medical History: Asthma Additional Past Medical History / Comment(s): Patient is a history of positive group B strep with previous . blood work shows she is O positive, rubella immune, RPR nonreactive, hepatitis B is negative, HIV is nonreactive. She did not do her 1 hour [place],. GBS+ History of Any Multi-Drug Resistant Organisms: None Reported Past Surgical History: No Surgical Hx Reported Past Anesthesia/Blood Transfusion Reactions: No Reported Reaction Past Psychological History: Depression Smoking Status: Former smoker Past Alcohol Use History: Occasional Past Drug Use History: Marijuana - Past Family History Father Family Medical History: Asthma, Cancer Additional Family Medical History / Comment(s): melanomna <Chelsea Montejo - Last Filed: 09/10/18 00:37> General Exam Limitations: no limitations General appearance: alert, in no apparent distress, other (Physical well-devel oped, well-nourished adult female patient in no acute distress. Vital signs upon presentation are temperature 98.3F, pulse 78, respirations 18, blood pressure 108/70, pulse ox 99% on room air.) Eye exam: Present: normal appearance, PERRL, EOMI. Absent: scleral icterus, co njunctival injection, periorbital swelling ENT exam: Present: normal exam, normal oropharynx, mucous membranes moist Respiratory exam: Present: normal lung sounds bilaterally. Absent: respiratory distress, wheezes, rales, rhonchi, stridor Cardiovascular Exam: Present: regular rate, normal rhythm, normal heart sounds. Absent: systolic murmur, diastolic murmur, rubs, gallop, clicks GI/Abdominal exam: Present: soft, normal bowel sounds. Absent: distended, tenderness, guarding, rebound, rigid External exam: Present: normal external exam Speculum exam: Present: vaginal discharge (White), other (Cervical os is closed). Absent: vaginal bleeding By manual exam: Present: normal by manual exam Neurological exam: Present: alert, oriented X3, CN II-XII intact Psychiatric exam: Present: normal affect, normal mood Skin exam: Present: warm, dry, intact, normal color. Absent: rash <Chelsea Montejo M - Last Filed: 09/10/18 00:37> Course Vital Signs 09/09/18 09/09/18 20:08 23:47 Temperature 98.3 F 98.3 F Pulse Rate 78 78 Respiratory 18 18 Rate Blood Pressure 108/70 108/70 O2 Sat by Pulse 99 99 Oximetry Medical Decision Making - Lab Data Result diagrams: 09/09/18 21:30 09/09/18 21:30 - Radiology Data Radiology results: report reviewed, image reviewed <Chelsea Montejo M - Last Filed: 09/10/18 00:37> - Lab Data Result diagrams: 09/09/18 21:30 09/09/18 21:30 <Yvonne Santillan - Last Filed: 09/10/18 02:18> - Medical Decision Making 23-year-old female patient presented to the emergency department today for evaluation of vaginal bleeding, suprapubic cramping, low back pain. She is 18 weeks . . Physical examination did reveal some mild suprapubic tenderness. No CVA tenderness. Pelvic exam was performed and showed no evidence for vaginal bleeding currently cervical os is closed. Cultures were sent. Urinalysis showed large leukocyte esterase, white blood cells are 51, 6 squamous epithelial cells, rare bacteria, rare mucous, occasional yeast. Trichomonas test was negative. Ultrasound was obtained and showed viable intrauterine heart rate 140. No acute process. I did discuss findings and results with the patient. We'll treat for urinary tract infection. She is instructed to follow-up with her [facility] for recheck as soon as possible. Return parameters were discussed in detail. She verbalizes understanding and agrees with this plan. (Chelsea Montejo) I was available for consultation in the emergency department. The history and physical exam were done by the midlevel provider. I was consulted for this patient's care. I reviewed the case with the midlevel provider and based on their presentation of the patient, I agree with the assessment, medical decision making and plan of care as documented. Chart was dictated using [employer] dictation software. Attempts were made to correct any dictation errors however some typographical errors may persist. (Yvonne Santillan) - Lab Data Lab Results 09/09/18 09/09/18 09/09/18 Range/Units 20:30 20:30 21:30 WBC 13.4 H (3.8-10.6) k/uL RBC 4.02 (3.80-5.40) m/uL Hgb 11.7 (11.4-16.0) gm/dL Hct 36.1 (34.0-46.0) % MCV 90.0 (80.0-100.0) fL MCH 29.2 (25.0-35.0) pg MCHC 32.5 (31.0-37.0) g/dL RDW 12.6 (11.5-15.5) % Plt Count 221 (150-450) k/uL Neutrophils % 70 % Lymphocytes % 22 % Monocytes % 4 % Eosinophils % 2 % Basophils % 0 % Neutrophils # 9.3 H (1.3-7.7) k/uL Lymphocytes # 3.0 (1.0-4.8) k/uL Monocytes # 0.6 (0-1.0) k/uL Eosinophils # 0.3 (0-0.7) k/uL Basophils # 0.0 (0-0.2) k/uL Sodium (137-145) mmol/L Potassium (3.5-5.1) mmol/L Chloride (98-107) mmol/L Carbon Dioxide (22-30) mmol/L Anion Gap mmol/L BUN (7-17) mg/dL Creatinine (0.52-1.04) mg/dL Est GFR (CKD-EPI)AfAm (>60 ml/min/1.73 sqM) Est GFR (CKD-EPI)NonAf (>60 ml/min/1.73 sqM) Glucose (74-99) mg/dL Calcium (8.4-10.2) mg/dL Total Bilirubin (0.2-1.3) mg/dL AST (14-36) U/L ALT (9-52) U/L Alkaline Phosphatase (38-126) U/L Total Protein (6.3-8.2) g/dL Albumin (3.5-5.0) g/dL Urine Color Light Yellow Urine Appearance Clear (Clear) Urine pH 6.5 (5.0-8.0) Ur Specific [place] 1.008 (1.001-1.035) Urine Protein Negative (Negative) Urine Glucose (UA) Negative (Negative) Urine Ketones Negative (Negative) Urine Blood Negative (Negative) Urine Nitrite Negative (Negative) Urine Bilirubin Negative (Negative) Urine Urobilinogen <2.0 (<2.0) mg/dL Ur Leukocyte Esterase Large H (Negative) Urine RBC 1 (0-5) /hpf Urine WBC 51 H (0-5) /hpf Ur Squamous Epith Cells 6 H (0-4) /hpf Urine Bacteria Rare H (None) /hpf Urine Mucus Rare H (None) /hpf Urine Yeast (Budding) Occasional H (None) /hpf Urine HCG, Qual Detected (Not Detectd) Trichomonas Ag (Rapid) (Negative) 09/09/18 09/09/18 Range/Units 21:30 21:30 WBC (3.8-10.6) k/uL RBC (3.80-5.40) m/uL Hgb (11.4-16.0) gm/dL Hct (34.0-46.0) % MCV (80.0-100.0) fL MCH (25.0-35.0) pg MCHC (31.0-37.0) g/dL RDW (11.5-15.5) % Plt Count (150-450) k/uL Neutrophils % % Lymphocytes % % Monocytes % % Eosinophils % % Basophils % % Neutrophils # (1.3-7.7) k/uL Lymphocytes # (1.0-4.8) k/uL Monocytes # (0-1.0) k/uL Eosinophils # (0-0.7) k/uL Basophils # (0-0.2) k/uL Sodium 136 L (137-145) mmol/L Potassium 4.4 (3.5-5.1) mmol/L Chloride 105 (98-107) mmol/L Carbon Dioxide 21 L (22-30) mmol/L Anion Gap 10 mmol/L BUN 6 L (7-17) mg/dL Creatinine 0.41 L (0.52-1.04) mg/dL Est GFR (CKD-EPI)AfAm >90 (>60 ml/min/1.73 sqM) Est GFR (CKD-EPI)NonAf >90 (>60 ml/min/1.73 sqM) Glucose 90 (74-99) mg/dL Calcium 9.1 (8.4-10.2) mg/dL Total Bilirubin 0.2 (0.2-1.3) mg/dL AST 14 (14-36) U/L ALT 8 L (9-52) U/L Alkaline Phosphatase 56 (38-126) U/L Total Protein 6.5 (6.3-8.2) g/dL Albumin 3.7 (3.5-5.0) g/dL Urine Color Urine Appearance (Clear) Urine pH (5.0-8.0) Ur Specific [place] (1.001-1.035) Urine Protein (Negative) Urine Glucose (UA) (Negative) Urine Ketones (Negative) Urine Blood (Negative) Urine Nitrite (Negative) Urine Bilirubin (Negative) Urine Urobilinogen (<2.0) mg/dL Ur Leukocyte Esterase (Negative) Urine RBC (0-5) /hpf Urine WBC (0-5) /hpf Ur Squamous Epith Cells (0-4) /hpf Urine Bacteria (None) /hpf Urine Mucus (None) /hpf Urine Yeast (Budding) (None) /hpf Urine HCG, Qual (Not Detectd) Trichomonas Ag (Rapid) Negative (Negative) - Radiology Data ultrasound was obtained. Report was reviewed in its entirety. Impression by Dr. Chowdhury shows single live intrauterine with an estimated gestational age of 18 weeks 2 days. No acute findings. (Chelsea Montejo) Disposition Is patient prescribed a controlled substance at d/c from ED?: No Time of Disposition: 23:34 <Chelsea Montejo - Last Filed: 09/10/18 00:37> <Yvonne Santillan P - Last Filed: 09/10/18 02:18> Clinical Impression: Urinary tract infection during , Vaginal bleeding during Disposition: HOME SELF-CARE Condition: Good Instructions (If sedation given, give patient instructions): Urinary Tract Infection in (ED) Additional Instructions: Increase fluids. Complete antibiotic prescription in full. Follow-up with your [facility] for recheck as soon as possible. Return to the emergency department immediately for any new, worsening, or concerning symptoms. Prescriptions: Cephalexin [Keflex] 500 mg PO Q6HR #40 cap Referrals: None,Stated [Primary Care Provider] - 1-2 days
--- NOTE | 2018-09-09 22:51 | US ---
EXAM: US After First Trimester, Transabdominal CLINICAL HISTORY: ITS.REASON US Reason: Pain TECHNIQUE: Real-time transabdominal obstetrical ultrasound of the maternal pelvis and a second or third trimester with image documentation. COMPARISON: No relevant prior studies available. FINDINGS: Fetus: Single live intrauterine gestation. Heart rate: 140 bpm. Presentation: Breech Placenta: Anterior and low lying. No abruption. Amniotic fluid: 10 cm. Anatomy: Not evaluated. BIOMETRICS Gestational age: 18 weeks 2 days ISRAEL: [birth year] EFW: 247 g, 80.3 percentile BPD: 4.1 cm, 18 weeks 2 days HC: 15.4 cm, 18 weeks 3 days AC: 13.3 cm, 18 weeks 5 days FL: 2.8 cm, 18 weeks 3 days MATERNAL: Uterus: Unremarkable. No myometrial mass. Cervix: Unremarkable as visualized. Closed. Measures 3.9 cm. Free fluid: No free fluid. IMPRESSION: Single live intrauterine with an estimated gestational age of 18 weeks 2 days. No acute findings.
[2018-09-11 15:17] LABS: C. trachomatis,PCR Negative (Neg,Equiv); Chlamydia trachomatis Source Vagina
[2018-09-11 15:31] LABS: N. gonorrhoeae,PCR Negative (Neg,Equiv); Neisseria Source Vagina
== END 2018-09-09 23:55 | disposition home or self-care (01) ==
LOC: EC 20:01
DX: O20.9 Hemorrhage in early pregnancy, unspecified (principal); O23.42 Unspecified infection of urinary tract in pregnancy, second trimester; O99.512 Diseases of the respiratory system complicating pregnancy, second trimester; J45.909 Unspecified asthma, uncomplicated; Z3A.18 18 weeks gestation of pregnancy; Z91.030 Bee allergy status; Z91.018 Allergy to other foods; Z91.040 Latex allergy status; Z88.7 Allergy status to serum and vaccine; Z91.013 Allergy to seafood; Z88.5 Allergy status to narcotic agent; Z87.891 Personal history of nicotine dependence
CPT/HCPCS: 99284; 96374; 36415; 80053; 85025; 81001; 81025; 87808; 87491; 87591; 87070; 87086; 87205; 76805; 96361; J0696

== ENCOUNTER 2018-12-06 16:30 | Outpatient (CLI) | payer OTHER ==
[2018-12-06 17:16] VITALS: BP 113/64; PULSE 83; RESP 16; TEMP 98
[2018-12-06 18:24] LABS: Amphetamine Screen,Urine Not Detected (NotDetected); Cocaine Screen,Urine Not Detected (NotDetected); Opiate Screen,Urine Not Detected (NotDetected); Phencyclidine Screen,Urine Not Detected (NotDetected); Urn Cannabinoid Scrn Detected (NotDetected)
[2018-12-06 18:25] LABS: Barbiturate Screen,Urine Not Detected (NotDetected); Benzodiazepines Screen,Urine Not Detected (NotDetected); Methadone Screen, Urine Not Detected (NotDetected); Oxycodone Screen, Urine Not Detected (NotDetected); Tricyclic Antidepressant,Urine Not Detected (NotDetected)
--- NOTE | 2018-12-19 08:21 | P.MSEPDOC ---
Presenting Problems - Arrival Data Date of Arrival on Unit: 12/06/18 Time of Arrival on Unit: 16:43 Mode of Transport: Ambulatory - Complaint OB-Reason for Admission/Chief Complaint: Rule Out PROM Comment: pt arrived c/o lower constant pelvic pressure and c/o leaking fluid pt states shes not sure if its urine. Medical History - Information : 3 Para: 2 Term: 2 : 0 Abortions: Spontaneous or Elective: 0 Number of Living Children: 2 - Gestational Age Gestational Age by [place] (wks/days): 30 Weeks and 4 Days - History Complications: Smoker Review of Systems - Review of Systems Constitutional: No problems Breast: No problems ENT: No problems Cardiovascular: No problems Gastrointestinal: Diarrhea Genitourinary: No problems Musculoskeletal: No problems Neurological: No problems Skin: No problems Vital Signs - Temperature Temperature: 98 F Temperature Source: Oral - Pulse Right Brachial Pulse Rate: 83 Pulse Assessment Method: Automatic Cuff - Respirations Respiratory Rate: 16 Oxygen Delivery Method: Room Air O2 Sat by Pulse Oximetry: 98 - Blood Pressure Right Arm Blood Pressure: 113/64 Blood Pressure Mean: 80 Blood Pressure Source: Automatic Cuff Medical Screen Scoring (Pre) - Cervical Exam Dilation: 0 cm = 0 Membranes: Intact - Uterine Contractions Frequency: N/A Duration: N/A Intensity: N/A - Maternal Vital Signs Maternal Temperature: N/A Signs of Preeclampsia: N/A Maternal Respirations: N/A - Maternal Trauma Maternal Trauma: N/A - Assessment - Baby A Baseline FHR: 130 Heart Rate - NICHD Category: Category I (Normal) = 0 NST: Reactive Position: N/A Station: N/A - Total Score - Baby A Total Score - Baby A: 0 - Total Score - Baby B Total Score - Baby B: 0 - Total Score - Baby C Total Score - Baby C: 0 - Level of Risk - Baby A Level of Risk - Baby A: Low (0-5) - Level of Risk - Baby B Level of Risk - Baby B: Low (0-5) - Level of Risk - Baby C Level of Risk - Baby C: Low (0-5) Physician Notification (Post) - Physician Notified Physician Notified Date: 12/06/18 Physician Notified Time: 17:20 Spoke With: dr mac New Order Received: Yes - Notification Comment Comment: pt obtained a clean catch u/a of drug screen and sent to lab. pt to keep her next scheduled appoinment with dr bourgeois Disposition - Disposition OB Disposition: Discharge to home Discharge Date: 12/06/18 Discharge Time: 18:10 I agree with the RN Medical Screening Exam: Yes Risk & Benefit of care provided described in d/c instruction: Yes Diagnosis: FALSE LABOR BEFORE 37 COMPLETED WEEKS OF GEST, THIRD TRI
== END 2018-12-06 18:10 | disposition home or self-care (01) ==
LOC: FBPOP 16:30
PROVIDERS: ATTEND Obstetrics & Gynecology
DX: O47.03 False labor before 37 completed weeks of gestation, third trimester (principal); O99.333 Smoking (tobacco) complicating pregnancy, third trimester; Z3A.30 30 weeks gestation of pregnancy
CPT/HCPCS: 59025; 84112; 80306; G0463; 99213

== ENCOUNTER 2018-12-23 03:55 | Outpatient (CLI) | payer OTHER ==
[2018-12-23 04:40] VITALS: BP 111/64; PULSE 92; RESP 16; TEMP 96.7
--- NOTE | 2019-01-24 05:29 | P.MSEPDOC ---
Presenting Problems - Arrival Data Date of Arrival on Unit: 12/23/18 Time of Arrival on Unit: 03:55 Mode of Transport: EMS - Complaint OB-Reason for Admission/Chief Complaint: Possible Onset of Labor, Rule Out PROM, Rule Out SROM Medical History - Information : 3 Para: 2 Term: 0 : 0 Abortions: Spontaneous or Elective: 0 Number of Living Children: 2 - Gestational Age Gestational Age by [place] (wks/days): 33 Weeks and 0 Days Review of Systems - Review of Systems Constitutional: No problems Breast: No problems ENT: No problems Cardiovascular: No problems Respiratory: No problems Gastrointestinal: No problems Genitourinary: No problems Musculoskeletal: No problems Neurological: No problems Skin: No problems Vital Signs - Temperature Temperature: 96.7 F Temperature Source: Temporal Artery Scan - Pulse Right Brachial Pulse Rate: 92 Pulse Assessment Method: Automatic Cuff - Respirations Respiratory Rate: 16 Oxygen Delivery Method: Room Air - Blood Pressure Right Arm Blood Pressure: 111/64 Blood Pressure Mean: 79 Blood Pressure Source: Automatic Cuff Medical Screen Scoring (Pre) - Cervical Exam Dilation: 0 cm = 0 Membranes: Intact - Uterine Contractions Frequency: N/A Duration: N/A Intensity: N/A - Maternal Vital Signs Maternal Temperature: N/A Maternal Blood Pressure: N/A Signs of Preeclampsia: N/A Maternal Respirations: N/A - Maternal Trauma Maternal Trauma: N/A - Assessment - Baby A Baseline FHR: 125 Heart Rate - NICHD Category: Category I (Normal) = 0 NST: Reactive - Total Score - Baby A Total Score - Baby A: 0 - Total Score - Baby B Total Score - Baby B: 0 - Total Score - Baby C Total Score - Baby C: 0 - Level of Risk - Baby A Level of Risk - Baby A: Low (0-5) - Level of Risk - Baby B Level of Risk - Baby B: Low (0-5) - Level of Risk - Baby C Level of Risk - Baby C: Low (0-5) Physician Notification (Pre) - Physician Notified Physician Notified Date: 12/23/18 Physician Notified Time: 04:25 - Notification Comment Comment: LYNDSAY Andrew spoke with Dr. Galvan. Reported that patient was not having any. traceable contractions on the monitor, appears to be comfortable, smiling and laughing with significant other, cervical exam was closed and thick, amnisure negative and a reactive NST. Dr. Galvan stated patient may be discharged with instructions and to keep follow up appointment on December 26. Patient educated and in agreement with plan of care. Disposition - Disposition OB Disposition: Discharge to home Discharge Date: 12/23/18 Discharge Time: 04:40 I agree with the RN Medical Screening Exam: Yes Risk & Benefit of care provided described in d/c instruction: Yes Diagnosis: FALSE LABOR BEFORE 37 COMPLETED WEEKS OF GEST, THIRD TRI
== END 2018-12-23 04:40 | disposition home or self-care (01) ==
LOC: FBPOP 03:55
PROVIDERS: ATTEND Obstetrics & Gynecology
DX: O47.03 False labor before 37 completed weeks of gestation, third trimester (principal); Z3A.33 33 weeks gestation of pregnancy
CPT/HCPCS: 59025; G0463; 99213

== ENCOUNTER 2019-01-11 18:47 | Outpatient (CLI) | payer OTHER ==
[2019-01-11 20:48] VITALS: BP 117/74; PULSE 117; RESP 16; TEMP 97.3
--- NOTE | 2019-01-16 08:25 | P.MSEPDOC ---
Presenting Problems - Arrival Data Date of Arrival on Unit: 01/11/19 Time of Arrival on Unit: 18:47 Mode of Transport: Ambulatory - Complaint OB-Reason for Admission/Chief Complaint: Possible Onset of Labor Medical History - Information : 3 Para: 2 Term: 2 : 0 Abortions: Spontaneous or Elective: 0 Number of Living Children: 2 - Gestational Age Gestational Age by [place] (wks/days): 35 Weeks and 5 Days Review of Systems - Review of Systems Constitutional: No problems Breast: No problems ENT: No problems Cardiovascular: No problems Respiratory: No problems Gastrointestinal: No problems Genitourinary: No problems Musculoskeletal: No problems Neurological: No problems Skin: No problems Vital Signs - Temperature Temperature: 97.3 F Temperature Source: Temporal Artery Scan - Pulse Right Brachial Pulse Rate: 117 Pulse Assessment Method: Automatic Cuff - Respirations Respiratory Rate: 16 Oxygen Delivery Method: Room Air O2 Sat by Pulse Oximetry: 98 - Blood Pressure Right Arm Blood Pressure: 117/74 Blood Pressure Mean: 88 Blood Pressure Source: Automatic Cuff Medical Screen Scoring (Pre) - Cervical Exam Dilation: 0 cm = 0 Membranes: Intact - Uterine Contractions Frequency: > 5 minutes apart = 1 - Maternal Vital Signs Maternal Temperature: N/A Maternal Blood Pressure: Systolic >139 = 2 Signs of Preeclampsia: N/A Maternal Respirations: N/A - Maternal Trauma Maternal Trauma: N/A - Assessment - Baby A Baseline FHR: 120 Heart Rate - NICHD Category: Category I (Normal) = 0 NST: Reactive Position: N/A - Total Score - Baby A Total Score - Baby A: 3 - Total Score - Baby B Total Score - Baby B: 3 - Total Score - Baby C Total Score - Baby C: 3 - Level of Risk - Baby A Level of Risk - Baby A: Low (0-5) - Level of Risk - Baby B Level of Risk - Baby B: Low (0-5) - Level of Risk - Baby C Level of Risk - Baby C: Low (0-5) Physician Notification (Pre) - Physician Notified Physician Notified Date: 01/11/19 Physician Notified Time: 20:22 - Notification Comment Comment: RN spoke with Dr. Franco. RN reported that patient states she has been having. contractions and increasing pressure all day. Cervical exam by previous RN reported as. well as cervical exam performed one hour later. Cervix remained fingertip and thick. Contractions were few and irregular. After first cervical exam, patient reported that. she felt her water had broke. Amnisure performed and was negative, verified by two RNs.Reactive heart tones reported to physician. Dr. Franco states patient. may be discharged with instructions and is to keep follow up appointment [facility] Dr. Galvan previously scheduled for January 15. Patient updated on plan of care and is in agreement. Disposition - Disposition OB Disposition: Discharge to home Discharge Date: 01/11/19 Discharge Time: 20:30 I agree with the RN Medical Screening Exam: Yes Risk & Benefit of care provided described in d/c instruction: Yes Diagnosis: FALSE LABOR BEFORE 37 COMPLETED WEEKS OF GEST, THIRD TRI
== END 2019-01-11 20:30 | disposition home or self-care (01) ==
LOC: FBPOP 18:47
PROVIDERS: ATTEND Obstetrics & Gynecology
DX: O47.03 False labor before 37 completed weeks of gestation, third trimester (principal); Z3A.35 35 weeks gestation of pregnancy
CPT/HCPCS: 59025; G0463; 99213

== ENCOUNTER 2019-01-21 11:37 | Outpatient (CLI) | payer OTHER ==
[2019-01-21 13:06] VITALS: BP 112/63; PULSE 82; RESP 18; TEMP 96.5
--- NOTE | 2019-01-21 17:39 | P.MSEPDOC ---
Presenting Problems - Arrival Data Date of Arrival on Unit: 01/21/19 Time of Arrival on Unit: 11:45 Mode of Transport: Wheelchair - Complaint OB-Reason for Admission/Chief Complaint: Possible Onset of Labor Medical History - Information : 3 Para: 2 Term: 2 : 0 Abortions: Spontaneous or Elective: 0 Number of Living Children: 2 - Gestational Age Gestational Age by [place] (wks/days): 37 Weeks and 1 Days Review of Systems - Review of Systems Constitutional: No problems Breast: No problems ENT: No problems Cardiovascular: No problems Respiratory: No problems Gastrointestinal: No problems Genitourinary: No problems Musculoskeletal: No problems Neurological: No problems Skin: No problems Comment: hx asthma, used ventolin inhaler today Vital Signs - Temperature Temperature: 96.5 F Temperature Source: Temporal Artery Scan - Pulse Right Sitting Brachial Pulse Rate: 82 Pulse Assessment Method: Automatic Cuff - Respirations Respiratory Rate: 18 Oxygen Delivery Method: Room Air O2 Sat by Pulse Oximetry: 98 - Blood Pressure Right Arm Sitting Blood Pressure: 112/63 Blood Pressure Mean: 79 Blood Pressure Source: Automatic Cuff Medical Screen Scoring (Pre) - Cervical Exam Dilation: 1-3 cm = 1 Effacement: More than 50% = 2 Membranes: Intact - Uterine Contractions Frequency: > 5 minutes apart = 1 Duration: > 40 seconds = 2 Intensity: N/A - Maternal Vital Signs Maternal Temperature: N/A Maternal Blood Pressure: Systolic >139 = 2 Signs of Preeclampsia: N/A Maternal Respirations: N/A - Maternal Trauma Maternal Trauma: N/A - Assessment - Baby A Baseline FHR: 115 Heart Rate - NICHD Category: Category I (Normal) = 0 NST: Reactive Position: N/A Station: N/A - Total Score - Baby A Total Score - Baby A: 8 - Total Score - Baby B Total Score - Baby B: 8 - Total Score - Baby C Total Score - Baby C: 8 - Level of Risk - Baby A Level of Risk - Baby A: Medium (6-9) - Level of Risk - Baby B Level of Risk - Baby B: Medium (6-9) - Level of Risk - Baby C Level of Risk - Baby C: Medium (6-9) Physician Notification (Pre) - Physician Notified Physician Notified Date: 01/21/19 Physician Notified Time: 12:00 New Order Received: Yes - Notification Comment Comment: Dr Richards in dept. dc home if no cervical change in one hour. Pt home. /-2/amnisure negative. Disposition - Disposition OB Disposition: Discharge to home Discharge Date: 01/21/19 Discharge Time: 12:55 I agree with the RN Medical Screening Exam: Yes Risk & Benefit of care provided described in d/c instruction: Yes Diagnosis: FALSE LABOR AT OR AFTER 37 COMPLETED WEEKS OF GESTATION
== END 2019-01-21 13:00 | disposition home or self-care (01) ==
LOC: FBPOP 11:37
PROVIDERS: ATTEND Obstetrics & Gynecology
DX: O47.1 False labor at or after 37 completed weeks of gestation (principal); Z3A.37 37 weeks gestation of pregnancy
CPT/HCPCS: 59025; 84112; G0463; 99213

== ENCOUNTER 2019-01-22 19:28 | Outpatient (CLI) | payer OTHER ==
[2019-01-22 22:22] VITALS: BP 124/76; PULSE 95; RESP 16; TEMP 97.3
--- NOTE | 2019-01-30 18:40 | P.MSEPDOC ---
Presenting Problems - Arrival Data Date of Arrival on Unit: 01/22/19 Time of Arrival on Unit: 19:28 Mode of Transport: Wheelchair - Complaint OB-Reason for Admission/Chief Complaint: Possible Onset of Labor Medical History - Information : 3 Para: 2 Term: 2 : 0 Abortions: Spontaneous or Elective: 0 Number of Living Children: 2 - Gestational Age Gestational Age by [place] (wks/days): 37 Weeks and 2 Days Review of Systems - Review of Systems Constitutional: No problems Breast: No problems ENT: No problems Cardiovascular: No problems Respiratory: No problems Gastrointestinal: No problems Genitourinary: No problems Musculoskeletal: No problems Neurological: No problems Skin: No problems Vital Signs - Temperature Temperature: 97.3 F Temperature Source: Temporal Artery Scan - Pulse Right Brachial Pulse Rate: 95 Pulse Assessment Method: Automatic Cuff - Respirations Respiratory Rate: 16 Oxygen Delivery Method: Room Air O2 Sat by Pulse Oximetry: 99 - Blood Pressure Right Arm Sitting Blood Pressure: 124/76 Blood Pressure Mean: 92 Blood Pressure Source: Automatic Cuff Medical Screen Scoring (Pre) - Cervical Exam Dilation: 1-3 cm = 1 Membranes: Intact - Uterine Contractions Frequency: > or = 36 weeks =2 Duration: > 40 seconds = 2 - Assessment - Baby A Baseline FHR: 115 Heart Rate - NICHD Category: Category I (Normal) = 0 NST: Reactive Position: N/A Station: N/A - Total Score - Baby A Total Score - Baby A: 5 - Total Score - Baby B Total Score - Baby B: 5 - Total Score - Baby C Total Score - Baby C: 5 - Level of Risk - Baby A Level of Risk - Baby A: Low (0-5) - Level of Risk - Baby B Level of Risk - Baby B: Low (0-5) - Level of Risk - Baby C Level of Risk - Baby C: Low (0-5) Physician Notification (Pre) - Physician Notified Physician Notified Date: 01/22/19 Physician Notified Time: 22:00 New Order Received: Yes (DISCHARGE) - Notification Comment 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
== END 2019-01-22 22:07 | disposition home or self-care (01) ==
LOC: FBPOP 19:28
PROVIDERS: ATTEND Obstetrics & Gynecology
DX: O47.1 False labor at or after 37 completed weeks of gestation (principal); Z3A.37 37 weeks gestation of pregnancy
CPT/HCPCS: 59025; G0463; 99213

== ENCOUNTER 2019-01-24 14:24 | Outpatient (CLI) | payer OTHER ==
[2019-01-24 15:51] VITALS: BP 106/68; PULSE 98; RESP 16; TEMP 98.3
--- NOTE | 2019-01-25 12:54 | P.MSEPDOC ---
Presenting Problems - Arrival Data Date of Arrival on Unit: 01/24/19 Time of Arrival on Unit: 14:33 Mode of Transport: Wheelchair - Complaint OB-Reason for Admission/Chief Complaint: Other Medical History - Information : 3 Para: 2 Term: 2 : 0 Abortions: Spontaneous or Elective: 0 Number of Living Children: 2 - Gestational Age Gestational Age by [place] (wks/days): 37 Weeks and 4 Days Review of Systems - Review of Systems Constitutional: No problems Breast: No problems ENT: No problems Cardiovascular: No problems Respiratory: No problems Gastrointestinal: No problems Genitourinary: No problems Musculoskeletal: No problems Neurological: No problems Skin: No problems Vital Signs - Temperature Temperature: 98.3 F Temperature Source: Oral - Pulse Right Brachial Pulse Rate: 98 Pulse Assessment Method: Automatic Cuff - Respirations Respiratory Rate: 16 Oxygen Delivery Method: Room Air O2 Sat by Pulse Oximetry: 97 - Blood Pressure Right Arm Blood Pressure: 106/68 Blood Pressure Mean: 80 Blood Pressure Source: Automatic Cuff Medical Screen Scoring (Pre) - Cervical Exam Dilation: 1-3 cm = 1 Membranes: Intact - Uterine Contractions Frequency: N/A Duration: N/A Intensity: N/A - Maternal Vital Signs Maternal Temperature: N/A Maternal Blood Pressure: N/A Signs of Preeclampsia: N/A Maternal Respirations: N/A - Maternal Trauma Maternal Trauma: N/A - Assessment - Baby A Baseline FHR: 130 Heart Rate - NICHD Category: Category I (Normal) = 0 NST: Reactive - Total Score - Baby A Total Score - Baby A: 1 - Total Score - Baby B Total Score - Baby B: 1 - Total Score - Baby C Total Score - Baby C: 1 - Level of Risk - Baby A Level of Risk - Baby A: Low (0-5) - Level of Risk - Baby B Level of Risk - Baby B: Low (0-5) - Level of Risk - Baby C Level of Risk - Baby C: Low (0-5) Physician Notification (Pre) - Physician Notified Physician Notified Date: 01/24/19 Physician Notified Time: 15:30 New Order Received: Yes - Notification Comment Comment: Reactive NST. May discharge to home undelivered with instructions Disposition - Disposition OB Disposition: Discharge to home Discharge Date: 01/24/19 Discharge Time: 15:40 I agree with the RN Medical Screening Exam: Yes Risk & Benefit of care provided described in d/c instruction: Yes Diagnosis: FALSE LABOR BEFORE 37 COMPLETED WEEKS OF GEST, THIRD TRI
== END 2019-01-24 15:40 | disposition home or self-care (01) ==
LOC: FBPOP 14:24
PROVIDERS: ATTEND Obstetrics & Gynecology
DX: O47.03 False labor before 37 completed weeks of gestation, third trimester (principal); Z3A.37 37 weeks gestation of pregnancy
CPT/HCPCS: 59025; G0463; 99213

== ENCOUNTER 2019-01-31 02:48 | Outpatient (CLI) | payer OTHER ==
[2019-01-31 03:14] VITALS: BP 115/62; PULSE 79
[2019-01-31 04:47] LABS: Appearance,Urine Cloudy (Clear); Bacteria,Urine Rare /hpf; Bilirubin,Urine Negative (Negative); Blood,Urine Negative (Negative); Color,Urine Yellow; Glucose,Urine (UA) Negative (Negative); Hyaline Casts,Urine 1 /lpf (0-2); Ketones,Urine Negative (Negative); Leukocyte Esterase,Urine Large (Negative); Mucus,Urine Rare /hpf; Nitrite,Urine Negative (Negative); Protein,Urine Negative (Negative); RBC,Urine 1 /hpf (0-5); Specific Gravity,Urine 1.011 (1.001-1.035); Squamous Epithelial Cell,Urine 3 /hpf (0-4); Urobilinogen,Urine <2.0 mg/dL (<2.0); WBC,Urine 94 /hpf (0-5)
[2019-01-31 05:08] VITALS: RESP 18; TEMP 98.2
--- NOTE | 2019-02-13 16:11 | P.MSEPDOC ---
Presenting Problems - Arrival Data Date of Arrival on Unit: 01/31/19 Time of Arrival on Unit: 02:53 Mode of Transport: Wheelchair - Complaint OB-Reason for Admission/Chief Complaint: Other Medical History - Information : 3 Para: 2 Term: 1 : 1 Abortions: Spontaneous or Elective: 0 Number of Living Children: 2 - Gestational Age Gestational Age by [place] (wks/days): 38 Weeks and 5 Days Review of Systems - Review of Systems Constitutional: No problems Breast: No problems ENT: No problems Cardiovascular: No problems Respiratory: No problems Gastrointestinal: No problems Genitourinary: No problems Musculoskeletal: No problems Neurological: No problems Skin: No problems Vital Signs - Temperature Temperature: 98.2 F Temperature Source: Oral - Pulse Right Brachial Pulse Rate: 79 Pulse Assessment Method: Automatic Cuff - Respirations Respiratory Rate: 18 Oxygen Delivery Method: Room Air O2 Sat by Pulse Oximetry: 100 - Blood Pressure Right Arm Blood Pressure: 115/62 Blood Pressure Mean: 79 Blood Pressure Source: Automatic Cuff Medical Screen Scoring (Pre) - Cervical Exam Dilation: 1-3 cm = 1 Membranes: Intact - Uterine Contractions Frequency: > 5 minutes apart = 1 Duration: N/A Intensity: N/A - Maternal Vital Signs Maternal Temperature: N/A Maternal Blood Pressure: N/A Signs of Preeclampsia: N/A Maternal Respirations: N/A - Maternal Trauma Maternal Trauma: N/A - Assessment - Baby A Baseline FHR: 120 Heart Rate - NICHD Category: Category I (Normal) = 0 NST: Reactive Position: N/A Station: N/A - Total Score - Baby A Total Score - Baby A: 2 - Total Score - Baby B Total Score - Baby B: 2 - Total Score - Baby C Total Score - Baby C: 2 - Level of Risk - Baby A Level of Risk - Baby A: Low (0-5) - Level of Risk - Baby B Level of Risk - Baby B: Low (0-5) - Level of Risk - Baby C Level of Risk - Baby C: Low (0-5) Physician Notification (Pre) - Physician Notified Physician Notified Date: 01/31/19 Physician Notified Time: 04:10 New Order Received: Yes Disposition - Disposition OB Disposition: Discharge to home Discharge Date: 01/31/19 Discharge Time: 04:56 I agree with the RN Medical Screening Exam: Yes Risk & Benefit of care provided described in d/c instruction: Yes Diagnosis: FALSE LABOR AT OR AFTER 37 COMPLETED WEEKS OF GESTATION
== END 2019-01-31 04:55 | disposition home or self-care (01) ==
LOC: FBPOP 02:48
PROVIDERS: ATTEND Obstetrics & Gynecology
DX: O47.1 False labor at or after 37 completed weeks of gestation (principal); Z3A.38 38 weeks gestation of pregnancy
CPT/HCPCS: 59025; 81001; G0463; 99213

== ENCOUNTER 2019-02-02 21:43 | Outpatient (CLI) | payer OTHER ==
[2019-02-02 23:31] VITALS: BP 114/70; PULSE 101; RESP 16; TEMP 96.3
--- NOTE | 2019-02-03 10:10 | P.MSEPDOC ---
Presenting Problems - Arrival Data Date of Arrival on Unit: 02/02/19 Time of Arrival on Unit: 21:43 Mode of Transport: Wheelchair - Complaint OB-Reason for Admission/Chief Complaint: Possible Onset of Labor, Rule Out SROM Medical History - Information : 3 Para: 2 Term: 2 : 0 Abortions: Spontaneous or Elective: 0 Number of Living Children: 2 - Gestational Age Gestational Age by [place] (wks/days): 38 Weeks and 6 Days Review of Systems - Review of Systems Constitutional: No problems Breast: No problems ENT: No problems Cardiovascular: No problems Respiratory: No problems Gastrointestinal: No problems Genitourinary: No problems Musculoskeletal: No problems Neurological: No problems Skin: No problems Vital Signs - Temperature Temperature: 96.3 F Temperature Source: Temporal Artery Scan - Pulse Pulse Oximetery Pulse Rate: 101 Pulse Assessment Method: Pulse Oximetry - Respirations Respiratory Rate: 16 Oxygen Delivery Method: Room Air O2 Sat by Pulse Oximetry: 98 - Blood Pressure Sitting Blood Pressure: 114/70 Blood Pressure Mean: 84 Blood Pressure Source: Automatic Cuff Medical Screen Scoring (Pre) - Cervical Exam Dilation: 1-3 cm = 1 Membranes: Intact - Uterine Contractions Frequency: > or = 36 weeks =2 Duration: N/A Intensity: N/A - Maternal Vital Signs Maternal Temperature: N/A Maternal Blood Pressure: N/A Signs of Preeclampsia: N/A Maternal Respirations: N/A - Maternal Trauma Maternal Trauma: N/A - Assessment - Baby A Baseline FHR: 135 Heart Rate - NICHD Category: Category I (Normal) = 0 NST: Reactive Position: N/A Station: N/A - Total Score - Baby A Total Score - Baby A: 3 - Total Score - Baby B Total Score - Baby B: 3 - Total Score - Baby C Total Score - Baby C: 3 - Level of Risk - Baby A Level of Risk - Baby A: Low (0-5) - Level of Risk - Baby B Level of Risk - Baby B: Low (0-5) - Level of Risk - Baby C Level of Risk - Baby C: Low (0-5) Physician Notification (Pre) - Physician Notified Physician Notified Date: 02/02/19 Physician Notified Time: 23:05 New Order Received: Yes - Notification Comment Comment: Orders given to discharge patient home with instructions. Disposition - Disposition OB Disposition: Discharge to home, Written follow up instructions reviewed Discharge Date: 02/02/19 Discharge Time: 23:19 I agree with the RN Medical Screening Exam: Yes Risk & Benefit of care provided described in d/c instruction: Yes Diagnosis: FALSE LABOR AT OR AFTER 37 COMPLETED WEEKS OF GESTATION
== END 2019-02-02 23:19 | disposition home or self-care (01) ==
LOC: FBPOP 21:43
PROVIDERS: ATTEND Obstetrics & Gynecology
DX: O47.1 False labor at or after 37 completed weeks of gestation (principal); Z3A.38 38 weeks gestation of pregnancy
CPT/HCPCS: 59025; 84112; G0463; 99213

== ENCOUNTER 2019-02-06 06:10 | Inpatient (IN) | payer OTHER ==
[2019-02-06] MEDS ORDERED: TERBUTALINE 1 MG/ML VIAL SQ PRN (06:35)
[2019-02-06] MEDS ORDERED: METHYLERGONOVINE 0.2 MG/ML 1 ML AMP IM PRN (06:35)
[2019-02-06] MEDS ORDERED: OXYTOCIN 10 UNIT/ML 1 ML VIAL IM PRN (06:35)
[2019-02-06] MEDS ORDERED: CARBOPROST TROMETHAMINE 250 MCG/ML 1 ML AMP IM PRN (06:35)
[2019-02-06] MEDS ORDERED: LIDOCAINE 0.5% (PF) 5 MG/ML (50 ML SDV) SQ PRN (06:35)
[2019-02-06] MEDS ORDERED: OXYTOCIN 30 UNITS/500 ML NS 30 UNIT in SALINE 1 500ML.BAG IV SCH (06:45)
[2019-02-06 06:49] LABS: Basophils % (A) 0 %; Eosinophils # (A) 0.2 k/uL (0-0.7); Eosinophils % (A) 1 %; HGB 12.8 gm/dL (11.4-16.0); Lymphocytes # (A) 3.5 k/uL (1.0-4.8); Lymphocytes % (A) 29 %; MCH 31.6 pg (25.0-35.0); MCHC 34.6 g/dL (31.0-37.0); MCV 91.4 fL (80.0-100.0); Mean Platelet Volume 7.6; Monocytes # (A) 0.5 k/uL (0-1.0); Monocytes % (A) 5 %; Neutrophils # (A) 7.6 k/uL (1.3-7.7); Neutrophils % (A) 63 %; Platelet Count 274 k/uL (150-450); RBC 4.05 m/uL (3.80-5.40); RDW 12.3 % (11.5-15.5)
[2019-02-06] MEDS: LACTATED RINGERS 1,000 ML IV SCH ×3 (07:03→12:52)
[2019-02-06] MEDS ORDERED: BUTORPHANOL 1 MG/ML 1 ML VIAL IV PRN (10:17)
[2019-02-06] MEDS ORDERED: SODIUM CHLORIDE 0.9% 100 ML BAG ONE (11:57)
[2019-02-06] MEDS ORDERED: fentaNYL (PF) 50 MCG/ML 5 ML AMP ONE (11:57)
[2019-02-06] MEDS ORDERED: ROPIVACAINE 5MG/ML 20ML VIAL ONE (11:57)
[2019-02-06] MEDS ORDERED: BENZOCAINE/MENTHOL SPRAY 1 GM/SPRAY AEROSOL TOPICAL PRN (17:15)
[2019-02-06] MEDS ORDERED: ACETAMINOPHEN TAB 325 MG TAB PO PRN (17:15)
[2019-02-06] MEDS ORDERED: diphenhydrAMINE 50 MG/ML 1 ML VIAL IVP PRN ×2 (17:15)
[2019-02-06] MEDS ORDERED: SIMETHICONE 80 MG CHEWABLE PO PRN (17:15)
[2019-02-06] MEDS ORDERED: OXYTOCIN 20 UNITS/1000 ML NS 1,000 ML IV SCH (17:15)
[2019-02-06] MEDS ORDERED: LANOLIN CREAM 5 GM TUBE TOPICAL PRN (17:15)
[2019-02-06] MEDS ORDERED: diphenhydrAMINE 25 MG CAP PO PRN (17:15)
[2019-02-06] MEDS ORDERED: WITCH HAZEL 1 EACH MED..PAD TOPICAL PRN (17:15)
[2019-02-06] MEDS ORDERED: ZOLPIDEM 5 MG TAB PO PRN (17:15)
[2019-02-06] MEDS ORDERED: diphenhydrAMINE 50 MG CAP PO PRN (17:15)
[2019-02-06] MEDS ORDERED: HYDROCORTISONE 2.5% RECTAL CREAM 30 GM TUBE RECTAL PRN (17:15)
--- NOTE | 2019-02-06 17:17 | P.HPOB ---
History of Present Illness H&P Date: 02/06/19 Chief Complaint: induction of labor 23-year-old presents at 39 weeks and 3 days for induction of labor. Her cervix is 1 cm dilated, 80% effaced, and -2 station. She is evans irregularly. heart tones 130 with moderate variability and reactive. Review of Systems All systems: negative Constitutional: Denies chills, Denies fever Eyes: denies blurred vision, denies pain Ears, nose, mouth and throat: Denies headache, Denies sore throat Cardiovascular: Denies chest pain, Denies shortness of breath Respiratory: Denies cough Gastrointestinal: Denies abdominal pain, Denies diarrhea, Denies nausea, Denies vomiting Genitourinary: Denies dysuria, Denies hematuria Musculoskeletal: Denies myalgias Integumentary: Denies pruritus, Denies rash Neurological: Denies numbness, Denies weakness Psychiatric: Denies anxiety, Denies depression Endocrine: Denies fatigue, Denies weight change Past Medical History Past Medical History: Asthma Additional Past Medical History / Comment(s): Patient is a history of positive group B strep with previous . blood work shows she is O positive, rubella immune, RPR nonreactive, hepatitis B is negative, HIV is nonreactive. History of Any Multi-Drug Resistant Organisms: None Reported Past Surgical History: No Surgical Hx Reported Past Anesthesia/Blood Transfusion Reactions: No Reported Reaction Past Psychological History: Depression Smoking Status: Former smoker Past Alcohol Use History: Occasional Past Drug Use History: Marijuana - Past Family History Father Family Medical History: Asthma, Cancer Additional Family Medical History / Comment(s): melanomna Medications and Allergies Home Medications Medication Instructions Recorded Confirmed Type Albuterol Inhaler [Ventolin Hfa 2 puff INHALATION RT-Q6H PRN 09/12/17 02/06/19 History Inhaler] Acetaminophen Tab [Tylenol Tab] 650 mg PO Q6H PRN 01/11/19 02/06/19 History Allergies Allergy/AdvReac Type Severity Reaction Status Date / Time bee venom protein (honey bee) Allergy Anaphylaxis Verified 02/06/19 06:34 patel flavor Allergy Anaphylaxis Verified 02/06/19 06:34 grape Allergy Anaphylaxis Verified 02/06/19 06:34 Influenza Virus Vaccines Allergy Rash/Hives Verified 02/06/19 06:34 latex Allergy Rash/Hives Verified 02/06/19 06:34 Mushroom Allergy Anaphylaxis Verified 02/06/19 06:34 shellfish derived [Shrimp] Allergy Anaphylaxis Verified 02/06/19 06:34 coconut AdvReac Nausea & Verified 02/06/19 06:34 Vomiting Exam Osteopathic Statement: *. No significant issues noted on an osteopathic structural exam other than those noted in the History and Physical/Consult. Vital Signs Temp Pulse Resp BP Pulse Ox 02/06/19 07:30 96.1 F L 85 16 114/61 99 Intake and Output 02/06/19 02/06/19 02/06/19 06:59 14:59 22:59 Intake Total 1999 Balance 1999 Intake: Intake, IV Titration 2000 Amount Lactated Ringers 1,000 ml 2000 @ 125 mls/hr IV .Q8H [facility] Rx#:[id number] Other: Weight 69.4 kg 69.4 kg Heart: Regular rate and rhythm Lungs: Clear to auscultation bilaterally Abdomen: Soft, nontender Extremities: Negative Homans sign Results Result Diagrams: 02/06/19 06:39 Abnormal Lab Results - Last 24 Hours (Table) 02/06/19 Range/Units 06:39 WBC 12.0 H (3.8-10.6) k/uL Assessment and Plan (1) Normal labor Current Visit: No Status: Resolved Code(s): O80 - ENCOUNTER FOR FULL-TERM UNCOMPLICATED DELIVERY; Z37.9 - OUTCOME OF DELIVERY, UNSPECIFIED SNOMED Code(s): 71784779 Plan: 1. Admit to family place 2. Induction of labor with amniotomy and Pitocin 3. Anticipate normal vaginal delivery
--- NOTE | 2019-02-06 17:19 | P.PROBDLV ---
Vaginal Delivery Note - . Vaginal Delivery Note: 23-year-old presents at 39 weeks and 3 days for induction of labor. Her cervix is 1 cm dilated, 80% effaced, and -2 station. She is evans irregularly. heart tones 130 with moderate variability and reactive. Pitocin was started. Amniotomy was performed at 7:20 AM and clear fluid noted. When she was 3 cm dilated she got some Stadol for pain. heart tones remained about 130 with moderate variability. When she was 4 cm dilated she did receive an epidural and was comfortable. her cervix was completely dilated at 1601. She pushed, delivered a viable male infant over intact perineum under epidural anesthesia at 1610. Head delivered OA, nuchal cord 1 easily reduced, anterior shoulder delivered with gentle downward guidance followed by posterior shoulder and rest of body. Nose and mouth bulb suctioned, cord clamped and cut, placed mother's abdomen. Apgars 9, 9, weight 7 lbs. 1 oz. Placenta delivered spontaneously, intact with three-vessel cord at 1612. Vagina, cervix, and perineum were inspected. No lacerations noted. Estimated blood loss 200 mL. Mother and baby in stable condition.
[2019-02-06] MEDS: IBUPROFEN 600 MG TAB PO PRN (20:07)
[2019-02-06] MEDS: SENNOSIDES-DOCUSATE SODIUM 1 EACH TAB PO SCH (20:08)
[2019-02-07] MEDS: IBUPROFEN 600 MG TAB PO PRN ×2 (03:47→12:26)
--- NOTE | 2019-02-07 07:01 | P.DS ---
Providers Date of admission: 02/06/19 06:10 Expected date of discharge: 02/07/19 Attending physician: Sheila Galvan Primary care physician: Stated None - Discharge Diagnosis(es) (1) Normal vaginal delivery Current Visit: No Status: Acute Hospital Course: patient presented for induction of labor. She underwent normal vaginal delivery. Her course was uncomplicated. She'll be discharged home day #1 in stable condition to follow-up with me in 6 weeks. Plan - Discharge Summary New Discharge Prescriptions: New Ibuprofen [Motrin] 600 mg PO Q6HR PRN #30 tab PRN Reason: Mild Pain Or Fever >= 100.5 No Action Albuterol Inhaler [Ventolin Hfa Inhaler] 2 puff INHALATION RT-Q6H PRN PRN Reason: Shortness Of Breath Acetaminophen Tab [Tylenol Tab] 650 mg PO Q6H PRN PRN Reason: Pain Discharge Medication List Albuterol Inhaler [Ventolin Hfa Inhaler] 2 puff INHALATION RT-Q6H PRN 09/12/17 [History] Acetaminophen Tab [Tylenol Tab] 650 mg PO Q6H PRN 01/11/19 [History] Ibuprofen [Motrin] 600 mg PO Q6HR PRN #30 tab 02/07/19 [Rx] Follow up Appointment(s)/Referral(s): Sheila Galvan DO [Doctor of Osteopathic Medicine] - 6 Weeks Discharge Disposition: HOME SELF-CARE
[2019-02-07 07:50] LABS: Basophils % (A) 0 %; Eosinophils # (A) 0.2 k/uL (0-0.7); Eosinophils % (A) 1 %; HCT 33.6 % (34.0-46.0); HGB 11.1 gm/dL (11.4-16.0); Lymphocytes # (A) 3.6 k/uL (1.0-4.8); Lymphocytes % (A) 29 %; MCHC 33.2 g/dL (31.0-37.0); MCV 93.5 fL (80.0-100.0); Mean Platelet Volume 7.6; Monocytes # (A) 0.5 k/uL (0-1.0); Monocytes % (A) 4 %; Neutrophils % (A) 64 %; Platelet Count 233 k/uL (150-450); RBC 3.59 m/uL (3.80-5.40); RDW 12.2 % (11.5-15.5); WBC 12.4 k/uL (3.8-10.6)
[2019-02-07] MEDS: SENNOSIDES-DOCUSATE SODIUM 1 EACH TAB PO SCH (08:13)
[2019-02-07] MEDS: LACTATED RINGERS 1,000 ML IV SCH (08:50)
[2019-02-07 17:18] VITALS: BP 119/80; PULSE 69; RESP 16; TEMP 98.1
== END 2019-02-07 18:30 | disposition home or self-care (01) | DRG 807 ==
LOC: 4FBP 06:10
PROVIDERS: ADMIT Obstetrics & Gynecology; ATTEND Obstetrics & Gynecology
PROC: 00HU33Z Insertion of Infusion Device into Spinal Canal, Percutaneous Approach (ICD-10-PCS; principal; 2019-02-06)
PROC: 10907ZU Drainage of Amniotic Fluid, Diagnostic from Products of Conception, Via Natural or Artificial Opening (ICD-10-PCS; principal; 2019-02-06)
PROC: 3E0R3BZ Introduction of Anesthetic Agent into Spinal Canal, Percutaneous Approach (ICD-10-PCS; principal; 2019-02-06)
PROC: 10E0XZZ Delivery of Products of Conception, External Approach (ICD-10-PCS; principal; 2019-02-06)
DX: O99.344 Other mental disorders complicating childbirth (principal); Z37.0 Single live birth; O99.52 Diseases of the respiratory system complicating childbirth; Z3A.39 39 weeks gestation of pregnancy; J45.909 Unspecified asthma, uncomplicated; F32.9 Major depressive disorder, single episode, unspecified; Z82.5 Family history of asthma and other chronic lower respiratory diseases; Z87.891 Personal history of nicotine dependence; Z80.9 Family history of malignant neoplasm, unspecified; Z79.899 Other long term (current) drug therapy; Z91.030 Bee allergy status; Z91.013 Allergy to seafood; Z88.7 Allergy status to serum and vaccine; Z91.018 Allergy to other foods
CPT/HCPCS: 85025; 86850; 86900; 86901

== ENCOUNTER → 2020-01-10 | Outpatient (CLI) | payer OTHER ==
--- NOTE | 2020-01-10 15:56 | US ---
EXAMINATION TYPE: US pelvic complete DATE OF EXAM: 01/10/2020 COMPARISON: NONE CLINICAL HISTORY: R10.9 Left flank pain; R10.2 suprapubic pressure. Pain no period for 6 months TECHNIQUE: Transabdominal (TA EXAM MEASUREMENTS: Uterus: 8.7 x 3.0 x 4.5 cm Endometrial Stripe: .5 cm Right Ovary: 3.1 x 2.4 x 3.3 cm Left Ovary: 2.8 x 2.7 x 2.6 cm 1. Uterus: Anteverted wnl 2. Endometrium: wnl 3. Right Ovary: wnl 4. Left Ovary: wnl 5. Bilateral Adnexa: wnl 6. Posterior cul-de-sac: wnl Urinary bladder is sonolucent. Posterior wall is normal. IMPRESSION: 1. Normal pelvic ultrasound
--- NOTE | 2020-01-10 15:57 | US ---
EXAMINATION TYPE: US abdomen complete DATE OF EXAM: 01/10/2020 COMPARISON: NONE CLINICAL HISTORY: R10.9 Left flank pain; R10.2 suprapubic pressure. Pain EXAM MEASUREMENTS: Liver Length: 13.2 cm Gallbladder Wall: .2 cm CBD: .4 cm Spleen: 11 cm Right Kidney: 11.9 x 3.9 x 4.2 cm Left Kidney: 10.2 x 4.6 x 3.4 cm Pancreas: wnl Liver: wnl Gallbladder: wnl Evidence for sonographic Cole's sign: no CBD: wnl Spleen: wnl Right Kidney: wnl Left Kidney: wnl Upper IVC: wnl Abd Aorta: wnl IMPRESSION: 1. Unremarkable ultrasound abdomen
== END | disposition home or self-care (01) ==
LOC: RADUSWWP 09:07
PROVIDERS: ATTEND Family Medicine
DX: R10.9 Unspecified abdominal pain (principal); R10.2 Pelvic and perineal pain; R10.84 Generalized abdominal pain
CPT/HCPCS: 76700; 76856

== ENCOUNTER → 2020-04-03 | Outpatient (CLI) | payer OTHER ==
--- NOTE | 2020-04-03 17:26 | XR ---
EXAM: Abdomen radiograph. HISTORY: Left flank pain. TECHNIQUE: Supine AP view. COMPARISON: None available. FINDINGS: There are nondilated bowel loops with a nonobstructive pattern. There are no pathologic calcification s. No acute osseous abnormality seen. IMPRESSION: No acute process.
--- NOTE | 2020-04-03 17:27 | XR ---
Result: History: Left flank pain. Comparison: None available. Technique: 5 views of the lumbar spine. Findings: The bone mineralization is normal. Images of the lumbar spine demonstrate 5 lumbar-type vertebrae. There is no acute fracture or sublux ation. The vertebral body heights are preserved throughout the imaged lumbar spine. The vertebral e lements are in anatomic alignment. The disc heights are maintained. No definite pars defect on the o blique views. Impression: Grossly unremarkable radiographs.
== END | disposition home or self-care (01) ==
LOC: RADXRMAIN 16:53
PROVIDERS: ATTEND Family Medicine
DX: M54.5 Low back pain (principal)
CPT/HCPCS: 72110; 74018

== ENCOUNTER 2020-09-01 15:53 | Emergency (ER) | payer OTHER ==
[2020-09-01 15:58] VITALS: BP 123/80; PULSE 85; RESP 16; TEMP 98
[2020-09-01] MEDS ORDERED: SODIUM CHLORIDE 0.9% 1,000 ML IV STA (16:22)
[2020-09-01 16:47] LABS: Basophils % (A) 0 %; Eosinophils # (A) 0.1 k/uL (0-0.7); Eosinophils % (A) 0 %; HCT 41.5 % (34.0-46.0); HGB 14.6 gm/dL (11.4-16.0); Lymphocytes # (A) 1.5 k/uL (1.0-4.8); Lymphocytes % (A) 11 %; MCHC 35.3 g/dL (31.0-37.0); MCV 87.8 fL (80.0-100.0); Mean Platelet Volume 7.3; Monocytes # (A) 0.3 k/uL (0-1.0); Monocytes % (A) 2 %; Neutrophils # (A) 12.5 k/uL (1.3-7.7); Neutrophils % (A) 86 %; Platelet Count 291 k/uL (150-450); RBC 4.73 m/uL (3.80-5.40); RDW 11.5 % (11.5-15.5); WBC 14.4 k/uL (3.8-10.6)
[2020-09-01] MEDS ORDERED: METOCLOPRAMIDE 5 MG/ML 2 ML VIAL IVP STA (16:47)
[2020-09-01] MEDS ORDERED: diphenhydrAMINE 50 MG/ML 1 ML VIAL IVP STA (16:47)
[2020-09-01 16:56] LABS: ALT 16 U/L (4-34); AST 25 U/L (14-36); African American GFR (CKD) >90 (>60 ml/min/1.73 sqM); Alkaline Phosphatase 62 U/L (38-126); Anion Gap 10 mmol/L; Blood Urea Nitrogen 6 mg/dL (7-17); Calcium 10.1 mg/dL (8.4-10.2); Carbon Dioxide 23 mmol/L (22-30); Chloride 106 mmol/L (98-107); Glucose 107 mg/dL (74-99); Non-African American GFR(CKD) >90 (>60 ml/min/1.73 sqM); Potassium 3.9 mmol/L (3.5-5.1); Sodium 139 mmol/L (137-145); Total Bilirubin 0.4 mg/dL (0.2-1.3); Total Protein 7.8 g/dL (6.3-8.2)
[2020-09-01 17:07] LABS: Appearance,Urine Cloudy (Clear); Bacteria,Urine Rare /hpf; Bilirubin,Urine Negative (Negative); Blood,Urine Negative (Negative); Color,Urine Yellow; Glucose,Urine (UA) Negative (Negative); Ketones,Urine 3+ (Negative); Leukocyte Esterase,Urine Negative (Negative); Mucus,Urine Many /hpf; Nitrite,Urine Negative (Negative); PH, Urine 7.5 (5.0-8.0); Protein,Urine 1+ (Negative); RBC,Urine 12 /hpf (0-5); Specific Gravity,Urine 1.027 (1.001-1.035); Squamous Epithelial Cell,Urine 8 /hpf (0-4); Urobilinogen,Urine <2.0 mg/dL (<2.0); WBC,Urine 1 /hpf (0-5)
--- NOTE | 2020-09-01 17:36 | ED ---
General Adult HPI - General Chief complaint: Nausea/Vomiting/Diarrhea Stated complaint: Nausea/Vomiting Time Seen by Provider: 09/01/20 16:04 Source: patient Mode of arrival: ambulatory Limitations: no limitations - History of Present Illness Initial comments: 25-year-old female currently approximately 8 weeks presents to the emergency room for a chief complaint of nausea vomiting. Patient states she started to have nausea vomiting this morning. She took 2 at home tests which were positive. Patient states her last period was July 03. Denies any abdominal pain. Denies any vaginal bleeding. Patient states she does have an appointment with her OFFICE SYSTEM ANALYST this week. Patient states she cannot keep anything down and that is why she is in the emergency room.Patient has no other complaints at this time including shortness of breath, chest pain, abdominal pain, nausea or vomiting, headache, or visual changes. - Related Data Home Medications Medication Instructions Recorded Confirmed Albuterol Inhaler (Mhu) [Ventolin 2 puff INHALATION RT-Q6H PRN 09/12/17 02/06/19 Hfa Inhaler] Acetaminophen Tab [Tylenol Tab] 650 mg PO Q6H PRN 01/11/19 02/06/19 Previous Rx's Medication Instructions Recorded Ibuprofen [Motrin] 600 mg PO Q6HR PRN #30 tab 02/07/19 Doxylamine Succinate [Unisom] 25 mg PO HS #20 tablet 09/01/20 Pyridoxine HCl (Vitamin B6) 25 mg PO HS #20 tablet 09/01/20 [Pyridoxine HCl] Allergies Allergy/AdvReac Type Severity Reaction Status Date / Time bee venom protein (honey bee) Allergy Anaphylaxis Verified 09/01/20 15:54 patel flavor Allergy Anaphylaxis Verified 09/01/20 15:54 grape Allergy Anaphylaxis Verified 09/01/20 15:54 Influenza Virus Vaccines Allergy Rash/Hives Verified 09/01/20 15:54 latex Allergy Rash/Hives Verified 09/01/20 15:54 Mushroom Allergy Anaphylaxis Verified 09/01/20 15:54 shellfish derived [Shrimp] Allergy Anaphylaxis Verified 09/01/20 15:54 coconut AdvReac Nausea & Verified 09/01/20 15:54 Vomiting Review of Systems ROS Statement: Those systems with pertinent positive or pertinent negative responses have been documented in the HPI. ROS Other: All systems not noted in ROS Statement are negative. Past Medical History Past Medical History: Asthma Additional Past Medical History / Comment(s): Patient is a history of positive group B strep with previous . blood work shows she is O p ositive, rubella immune, RPR nonreactive, hepatitis B is negative, HIV is nonreactive. History of Any Multi-Drug Resistant Organisms: None Reported Past Surgical History: No Surgical Hx Reported Past Anesthesia/Blood Transfusion Reactions: No Reported Reaction Past Psychological History: Depression Smoking Status: Former smoker Past Alcohol Use History: Occasional Past Drug Use History: Marijuana - Past Family History Father Family Medical History: Asthma, Cancer Additional Family Medical History / Comment(s): melanomna General Exam Limitations: no limitations General appearance: alert, in no apparent distress Head exam: Present: atraumatic, normocephalic, normal inspection Eye exam: Present: normal appearance, PERRL, EOMI. Absent: scleral icterus, conjunctival injection, periorbital swelling ENT exam: Present: normal exam Neck exam: Present: normal inspection, full ROM. Absent: tenderness, meningismus, lymphadenopathy Respiratory exam: Present: normal lung sounds bilaterally. Absent: respiratory distress, wheezes, rales, rhonchi, stridor Cardiovascular Exam: Present: regular rate, normal rhythm, normal heart sounds. Absent: systolic murmur, diastolic murmur, rubs, gallop, clicks GI/Abdominal exam: Present: soft, normal bowel sounds. Absent: distended, tenderness, guarding, rebound, rigid Neurological exam: Present: alert Course Vital Signs 09/01/20 15:55 Temperature 98 F Pulse Rate 85 Respiratory 16 Rate Blood Pressure 123/80 O2 Sat by Pulse 100 Oximetry Medical Decision Making - Medical Decision Making Vitals are stable. There is some mild leukocytosis likely secondary to vomiting. CMP is unremarkable. Urinalysis does show 3+ ketones. Patient was given a liter of fluid. Tolerating oral intake. HCG is detected. Patient has an appointment with her OFFICE SYSTEM ANALYST. Nurse informed me that patient feels much kota r and is requesting her IV be taken on discharge. I did reevaluate her she is well-appearing. She will tend her appointment with her OFFICE SYSTEM ANALYST. She'll return here for any worsening symptoms. - Lab Data Result diagrams: 09/01/20 16:22 09/01/20 16:22 Lab Results 09/01/20 09/01/2009/01/21 Range/Units 16:22 16:22 16:22 WBC 14.4 H (3.8-10.6) k/uL RBC 4.73 (3.80-5.40) m/uL Hgb 14.6 (11.4-16.0) gm/dL Hct 41.5 (34.0-46.0) % MCV 87.8 (80.0-100.0) fL MCH 31.0 (25.0-35.0) pg MCHC 35.3 (31.0-37.0) g/dL RDW 11.5 (11.5-15.5) % Plt Count 291 (150-450) k/uL MPV 7.3 Neutrophils % 86 % Lymphocytes % 11 % Monocytes % 2 % Eosinophils % 0 % Basophils % 0 % Neutrophils # 12.5 H (1.3-7.7) k/uL Lymphocytes # 1.5 (1.0-4.8) k/uL Monocytes # 0.3 (0-1.0) k/uL Eosinophils # 0.1 (0-0.7) k/uL Basophils # 0.0 (0-0.2) k/uL Sodium (137-145) mmol/L Potassium (3.5-5.1) mmol/L Chloride (98-107) mmol/L Carbon Dioxide (22-30) mmol/L Anion Gap mmol/L BUN (7-17) mg/dL Creatinine (0.52-1.04) mg/dL Est GFR (CKD-EPI)AfAm (>60 ml/min/1.73 sqM) Est GFR (CKD-EPI)NonAf (>60 ml/min/1.73 sqM) Glucose (74-99) mg/dL Calcium (8.4-10.2) mg/dL Total Bilirubin (0.2-1.3) mg/dL AST (14-36) U/L ALT (4-34) U/L Alkaline Phosphatase (38-126) U/L Total Protein (6.3-8.2) g/dL Albumin (3.5-5.0) g/dL Urine Color Yellow Urine Appearance Cloudy H (Clear) Urine pH 7.5 (5.0-8.0) Ur Specific [place] 1.027 (1.001-1.035) Urine Protein 1+ H (Negative) Urine Glucose (UA) Negative (Negative) Urine Ketones 3+ H (Negative) Urine Blood Negative (Negative) Urine Nitrite Negative (Negative) Urine Bilirubin Negative (Negative) Urine Urobilinogen <2.0 (<2.0) mg/dL Ur Leukocyte Esterase Negative (Negative) Urine RBC 12 H (0-5) /hpf Urine WBC 1 (0-5) /hpf Ur Squamous Epith Cells 8 H (0-4) /hpf Urine Bacteria Rare H (None) /hpf Urine Mucus Many H (None) /hpf Urine HCG, Qual Detected (Not Detectd) 09/01/20 Range/Units 16:22 WBC (3.8-10.6) k/uL RBC (3.80-5.40) m/uL Hgb (11.4-16.0) gm/dL Hct (34.0-46.0) % MCV (80.0-100.0) fL MCH (25.0-35.0) pg MCHC (31.0-37.0) g/dL RDW (11.5-15.5) % Plt Count (150-450) k/uL MPV Neutrophils % % Lymphocytes % % Monocytes % % Eosinophils % % Basophils % % Neutrophils # (1.3-7.7) k/uL Lymphocytes # (1.0-4.8) k/uL Monocytes # (0-1.0) k/uL Eosinophils # (0-0.7) k/uL Basophils # (0-0.2) k/uL Sodium 139 (137-145) mmol/L Potassium 3.9 (3.5-5.1) mmol/L Chloride 106 (98-107) mmol/L Carbon Dioxide 23 (22-30) mmol/L Anion Gap 10 mmol/L BUN 6 L (7-17) mg/dL Creatinine 0.51 L (0.52-1.04) mg/dL Est GFR (CKD-EPI)AfAm >90 (>60 ml/min/1.73 sqM) Est GFR (CKD-EPI)NonAf >90 (>60 ml/min/1.73 sqM) Glucose 107 H (74-99) mg/dL Calcium 10.1 (8.4-10.2) mg/dL Total Bilirubin 0.4 (0.2-1.3) mg/dL AST 25 (14-36) U/L ALT 16 (4-34) U/L Alkaline Phosphatase 62 (38-126) U/L Total Protein 7.8 (6.3-8.2) g/dL Albumin 5.0 (3.5-5.0) g/dL Urine Color Urine Appearance (Clear) Urine pH (5.0-8.0) Ur Specific [place] (1.001-1.035) Urine Protein (Negative) Urine Glucose (UA) (Negative) Urine Ketones (Negative) Urine Blood (Negative) Urine Nitrite (Negative) Urine Bilirubin (Negative) Urine Urobilinogen (<2.0) mg/dL Ur Leukocyte Esterase (Negative) Urine RBC (0-5) /hpf Urine WBC (0-5) /hpf Ur Squamous Epith Cells (0-4) /hpf Urine Bacteria (None) /hpf Urine Mucus (None) /hpf Urine HCG, Qual (Not Detectd) Disposition Clinical Impression: Nausea and vomiting during Disposition: HOME SELF-CARE Condition: Poor Instructions (If sedation given, give patient instructions): Acute Nausea and Vomiting (ED) Additional Instructions: Please take medications as directed. Please follow-up with your OFFICE SYSTEM ANALYST at your appointment this week. Return to the emergency room for any worsening symptoms. Prescriptions: Pyridoxine HCl (Vitamin B6) [Pyridoxine HCl] 25 mg PO HS #20 tablet Doxylamine Succinate [Unisom] 25 mg PO HS #20 tablet Is patient prescribed a controlled substance at d/c from ED?: No Referrals: Ashley Abarca MD [Primary Care Provider] - 1-2 days Time of Disposition: 17:34
== END 2020-09-01 18:00 | disposition home or self-care (01) ==
LOC: EC 15:53
DX: O21.9 Vomiting of pregnancy, unspecified (principal); O99.111 Other diseases of the blood and blood-forming organs and certain disorders involving the immune mechanism complicating pregnancy, first trimester; O99.511 Diseases of the respiratory system complicating pregnancy, first trimester; D72.829 Elevated white blood cell count, unspecified; J45.909 Unspecified asthma, uncomplicated; Z3A.08 8 weeks gestation of pregnancy; Z87.891 Personal history of nicotine dependence; Z67.40 Type O blood, Rh positive; Z91.040 Latex allergy status; Z91.030 Bee allergy status; Z91.018 Allergy to other foods; Z88.7 Allergy status to serum and vaccine
CPT/HCPCS: 36415; 80053; 85025; 81001; 81025; 99284; 96374; 96375; 96361; J1200; J2765

== ENCOUNTER 2020-09-03 18:14 | Emergency (ER) | payer OTHER ==
[2020-09-03 18:23] VITALS: BP 111/76; PULSE 76; RESP 20; TEMP 98.1
[2020-09-03] MEDS ORDERED: ONDANSETRON 4 MG/2 ML VIAL IVP STA (19:28)
[2020-09-03] MEDS ORDERED: FAMOTIDINE 20 MG/2 ML VIAL IV STA (19:28)
[2020-09-03] MEDS ORDERED: SODIUM CHLORIDE 0.9% 1,000 ML IV ONE (19:28)
[2020-09-03] MEDS ORDERED: MAG HYDROX/AL HYDROX/SIMETH 30 ML CUP PO PRN (19:28)
[2020-09-03 20:00] LABS: HCT 37.1 % (34.0-46.0); HGB 13.3 gm/dL (11.4-16.0); MCH 31.8 pg (25.0-35.0); MCHC 35.8 g/dL (31.0-37.0); MCV 88.8 fL (80.0-100.0); Mean Platelet Volume 7.4; Platelet Count 235 k/uL (150-450); RBC 4.17 m/uL (3.80-5.40); RDW 11.5 % (11.5-15.5); WBC 10.8 k/uL (3.8-10.6)
--- NOTE | 2020-09-03 20:01 | ED ---
General Adult HPI - General Chief complaint: Abdominal Pain Stated complaint: 8Wks preg, N/V blood Time Seen by Provider: 09/03/20 19:20 Source: patient, RN notes reviewed, old records reviewed Mode of arrival: ambulatory Limitations: no limitations - History of Present Illness Initial comments: Patient is a 25-year-old female with past medical history remarkable for asthma as well as prior pregnancies and polycystic ovarian syndrome who presents emerg ency Department complaining of nausea and vomiting in the setting of recently diagnosed . This is the fourth visit in 7 days to the emergency department for similar symptoms.She states she is approximately 8 weeks by LMP. She states that over the last 7-10 days, she has had nausea and vomiting that has become more persistent. She denies any bilious or bloody emesis. She is no diarrhea. She does endorse some lower, crampy, nonradiating abdominal pain suprapubically with associated dysuria. She denies any vaginal discharge or bleeding. She is not concerned for STI's. She denies any chest pain, shortness of breath. She states she is unable to follow up with her DIRECTOR CAREER and is presented to the emergency departments and has received IV fluids. She states that there is not been a formal ultrasound done to evaluate for definitive IUP. They have obtained basic laboratory studies including blood type at prior visits. She's with her fourth child. She otherwise has no acute complaints at this time. - Related Data Home Medications Medication Instructions Recorded Confirmed Acetaminophen Tab [Tylenol Tab] 650 mg PO Q6H PRN 01/11/19 09/03/20 Butalb/Acetaminophen/Caffeine 1 tab PO Q8H PRN 09/03/20 09/03/20 [Fioricet 50-325-40] Ondansetron Odt [Zofran Odt] 8 mg PO Q8HR PRN 09/03/20 09/03/20 Previous Rx's Medication Instructions Recorded Doxylamine Succinate [Unisom] 25 mg PO HS #20 tablet 09/01/20 Pyridoxine HCl (Vitamin B6) 25 mg PO HS #20 tablet 09/01/20 [Pyridoxine HCl] Cephalexin [Keflex] 500 mg PO BID 5 Days #10 cap 09/03/20 Ondansetron [Zofran ODT] 4 mg PO Q8HR PRN #6 tab 09/03/20 Allergies Allergy/AdvReac Type Severity Reaction Status Date / Time bee venom protein (honey bee) Allergy Anaphylaxis Verified 09/03/20 19:45 patel flavor Allergy Anaphylaxis Verified 09/03/20 19:45 grape Allergy Anaphylaxis Verified 09/03/20 19:45 Influenza Virus Vaccines Allergy Rash/Hives Verified 09/03/20 19:45 latex Allergy Rash/Hives Verified 09/03/20 19:45 Mushroom Allergy Anaphylaxis Verified 09/03/20 19:45 shellfish derived [Shrimp] Allergy Anaphylaxis Verified 09/03/20 19:45 coconut AdvReac Nausea & Verified 09/03/20 19:45 Vomiting Review of Systems ROS Statement: Those systems with pertinent positive or pertinent negative responses have been documented in the HPI. Review of Systems: CONST: Denies fever EYES: Denies blurry vision ENT: Denies nasal congestion C/V: Denies Chest pain RESP: Denies shortness of breath GI: Endorses abdominal pain : Endorses dysuria SKIN: Denies rash. MSK: Denies joint pain. NEURO: Denies headache ROS Other: All systems not noted in ROS Statement are negative. Past Medical History Past Medical History: Asthma Additional Past Medical History / Comment(s): Patient is a history of positive group B strep with previous . blood work shows she is O positive, rubella immune, RPR nonreactive, hepatitis B is negative, HIV is nonreactive. History of Any Multi-Drug Resistant Organisms: None Reported Past Surgical History: No Surgical Hx Reported Past Anesthesia/Blood Transfusion Reactions: No Reported Reaction Past Psychological History: Depression Smoking Status: Former smoker Past Alcohol Use History: Occasional Past Drug Use History: Marijuana - Past Family History Father Family Medical History: Asthma, Cancer Additional Family Medical History / Comment(s): melanomna General Exam - General Exam Comments Initial Comments: General: Appears in no acute distress. HEAD: Normal with no signs of head trauma. EYES: PERRLA, EOMI, conjunctiva normal, no discharge. ENT: Hearing grossly intact, dry mucous membranes. RESPIRATORY: Clear breath sounds bilaterally. No wheezes, rales, or rhonchi. C/V: Regular rate and rhythm. S1 and S2 auscultated, no edema, peripheral pulses 2+ and intact throughout ABD: Abdomen is soft, nondistended. Patient is tender to palpation in the suprapubic region of her abdomen. There is no guarding. There are no peritoneal signs. She has no CVA tenderness to percussion. EXT: Normal range of motion, no obvious deformity SKIN: No rashes or lesions observed on exposed skin. NEURO: Alert and oriented 4. Limitations: no limitations Course Vital Signs 09/03/20 18:20 Temperature 98.1 F Pulse Rate 76 Respiratory 20 Rate Blood Pressure 111/76 O2 Sat by Pulse 99 Oximetry Medical Decision Making - Medical Decision Making Based on patient's presentation and physical exam, I would like to obtain basic laboratory studies including a leukocytes that she has been having multiple episodes of emesis. She is having symptoms concerning for UTI and t herefore we'll obtain urinalysis. Quantitative beta hCG will also be obtained. I did perform a Precare ultrasound at bedside which revealed a possible definitive IUP but I will send her for a formal OB ultrasound. She'll be given 1 L fluid bolus followed by 1 L of D5W normal saline fluid bolus in addition to IV Zofran, which she states is the only entire nausea medication that works for her. She also be administered Maalox. She was in agreement with this plan. She denies any analgesia at this time. Patient's O2 studies are remarkable for a mild leukocytosis at 10.8. This is likely reactive. Urinalysis is concerning for a UTI, especially in the setting of suprapubic abdominal pain and dysuria. Chest is 4+ ketones consistent with dehydration. Therefore we will start the patient on Keflex for her UTI. Ultrasound revealed an intrauterine gestational sac with a yolk sac. Follow-up is recommended in 14 days. Reevaluation: Patient is tolerating by mouth intake at time. She would like to go home. I did discuss the results of her lab studies imaging with her. She exposed understanding. She'll be given a dose of Keflex prior to discharge. I informed her to follow up with an DIRECTOR CAREER in the next 14 days. I will provide the patient with a prescription for Keflex, Zofran ODT. Patient already has vitamins.. I instructed the patient to follow up with their PCP in the next 3 days. I provided contact information for follow up with on- call DIRECTOR CAREER. I explained that the patient should return to the emergency department if they experience any worsening symptoms. Strict return precautions were discussed with the patient. The patient expressed understanding of these instructions. I answered all questions that the patient had. The patient was discharged home in improved condition with their prescriptions and follow up information. - Lab Data Result diagrams: 09/03/20 19:54 09/03/20 19:54 Lab Results 09/03/20 09/03/20 09/03/20 Range/Units 19:54 19:54 19:54 WBC 10.8 H (3.8-10.6) k/uL RBC 4.17 (3.80-5.40) m/uL Hgb 13.3 (11.4-16.0) gm/dL Hct 37.1 (34.0-46.0) % MCV 88.8 (80.0-100.0) fL MCH 31.8 (25.0-35.0) pg MCHC 35.8 (31.0-37.0) g/dL RDW 11.5 (11.5-15.5) % Plt Count 235 (150-450) k/uL MPV 7.4 Sodium 138 (137-145) mmol/L Potassium 3.4 L (3.5-5.1) mmol/L Chloride 103 (98-107) mmol/L Carbon Dioxide 25 (22-30) mmol/L Anion Gap 10 mmol/L BUN 7 (7-17) mg/dL Creatinine 0.50 L (0.52-1.04) mg/dL Est GFR (CKD-EPI)AfAm >90 (>60 ml/min/1.73 sqM) Est GFR (CKD-EPI)NonAf >90 (>60 ml/min/1.73 sqM) Glucose 90 (74-99) mg/dL Calcium 9.2 (8.4-10.2) mg/dL Total Bilirubin 0.5 (0.2-1.3) mg/dL AST 22 (14-36) U/L ALT 14 (4-34) U/L Alkaline Phosphatase 52 (38-126) U/L Total Protein 7.3 (6.3-8.2) g/dL Albumin 4.6 (3.5-5.0) g/dL Lipase 75 (23-300) U/L HCG, Quant 46743.8 mIU/mL Urine Color Yellow Urine Appearance Cloudy H (Clear) Urine pH 6.5 (5.0-8.0) Ur Specific [place] 1.022 (1.001-1.035) Urine Protein Trace H (Negative) Urine Glucose (UA) Negative (Negative) Urine Ketones 4+ H (Negative) Urine Blood Small H (Negative) Urine Nitrite Negative (Negative) Urine Bilirubin Negative (Negative) Urine Urobilinogen <2.0 (<2.0) mg/dL Ur Leukocyte Esterase Small H (Negative) Urine RBC 1 (0-5) /hpf Urine WBC 5 (0-5) /hpf Ur Squamous Epith Cells 18 H (0-4) /hpf Urine Bacteria Rare H (None) /hpf Hyaline Casts 5 H (0-2) /lpf Urine Mucus Many H (None) /hpf Disposition Clinical Impression: , UTI (urinary tract infection), Nausea and vomiting, Dehydration Disposition: HOME SELF-CARE Condition: Fair Instructions (If sedation given, give patient instructions): Nausea and Vomiting in (ED), Urinary Tract Infection in (ED) Additional Instructions: Needs repeat ultrasound in 2 weeks. Prescriptions: Cephalexin [Keflex] 500 mg PO BID 5 Days #10 cap Ondansetron [Zofran ODT] 4 mg PO Q8HR PRN #6 tab PRN Reason: Nausea Is patient prescribed a controlled substance at d/c from ED?: No Referrals: Ashley Abarca MD [Primary Care Provider] - 1-2 days Bindu Stoddard DO [Doctor of Osteopathic Medicine] - 1-2 days
[2020-09-03 20:09] LABS: Appearance,Urine Cloudy (Clear); Bacteria,Urine Rare /hpf; Bilirubin,Urine Negative (Negative); Blood,Urine Small (Negative); Color,Urine Yellow; Glucose,Urine (UA) Negative (Negative); Hyaline Casts,Urine 5 /lpf (0-2); Ketones,Urine 4+ (Negative); Leukocyte Esterase,Urine Small (Negative); Mucus,Urine Many /hpf; Nitrite,Urine Negative (Negative); PH, Urine 6.5 (5.0-8.0); Protein,Urine Trace (Negative); RBC,Urine 1 /hpf (0-5); Specific Gravity,Urine 1.022 (1.001-1.035); Squamous Epithelial Cell,Urine 18 /hpf (0-4); Urobilinogen,Urine <2.0 mg/dL (<2.0); WBC,Urine 5 /hpf (0-5)
[2020-09-03] MEDS ORDERED: DEXTROSE 5%-0.9% NACL 1,000 ML IV ONE (20:15)
[2020-09-03 20:27] LABS: ALT 14 U/L (4-34); AST 22 U/L (14-36); African American GFR (CKD) >90 (>60 ml/min/1.73 sqM); Albumin 4.6 g/dL (3.5-5.0); Alkaline Phosphatase 52 U/L (38-126); Anion Gap 10 mmol/L; Blood Urea Nitrogen 7 mg/dL (7-17); Calcium 9.2 mg/dL (8.4-10.2); Carbon Dioxide 25 mmol/L (22-30); Chloride 103 mmol/L (98-107); Glucose 90 mg/dL (74-99); Lipase 75 U/L (23-300); Non-African American GFR(CKD) >90 (>60 ml/min/1.73 sqM); Potassium 3.4 mmol/L (3.5-5.1); Sodium 138 mmol/L (137-145); Total Bilirubin 0.5 mg/dL (0.2-1.3); Total Protein 7.3 g/dL (6.3-8.2)
[2020-09-03 21:06] LABS: HCG,Quantitative Serum 23702.8 mIU/mL
--- NOTE | 2020-09-03 21:14 | US ---
EXAMINATION TYPE: Transabdominal DATE OF EXAM: 09/03/2020 8:50 PM COMPARISON: US. This is first US for this . CLINICAL HISTORY: new . Pain. . EXAM PERFORMED: Transvaginal (TV) and Transabdominal (TA) EXAM MEASUREMENTS: GESTATIONAL AGE / DATING Physician Established: Not yet established. Dates by LMP: (8 weeks/6 days) EDC: 04/09/2021 Dates by First Scan: This is first scan. Dates by Current Scan for: ( 5weeks/ 5days) EDC: 05/01/2021 MATERNAL ANATOMY Uterus: 8.7 x 6.0 x 5.1 cm. Right Ovary: 3.6 x 2.0 x 1.8 cm. Left Ovary: 4.1 x 2.5 x 2.4 cm. Post CDS / Adnexa: Fluid seen in CDS: 0.5 x 2.7 x 2.4 cm. Fluid seen in right adnexa: 0.4 x 0.5 x 1.5 cm. Presence of free fluid: Yes, in CDS and right adnexa. Presence of corpus luteal cyst: Possible within left ovary. Area of mixed echogenicity and peripheral vascularity seen measurin.2 x 2.0 x 2.0 cm. Presence of subchorionic bleed: Not seen. GESTATION / SURVEY CRL: Possible pole measures 0.25 cm. (5 weeks/6 days) MSD: 1.30 cm. (5 weeks/4 days) Yolk Sac (normal less than 6mm): 2.5 mm. Heart Rate: Too early to visualize. Not seen at this time. IUP: Possible pole seen, too early to visualize hear rate. Date of LMP: 07/03/2020 Beta HcG (if available): Not available. IMPRESSION: Intrauterine gestational sac with a yolk sac. Follow-up exam recommended in 14 days to confirm a jose manuel ng fetus.
[2020-09-03] MEDS ORDERED: CEPHALEXIN 500 MG CAP PO STA (22:40)
== END 2020-09-03 22:56 | disposition home or self-care (01) ==
LOC: EC 18:14
DX: O23.41 Unspecified infection of urinary tract in pregnancy, first trimester (principal); O99.281 Endocrine, nutritional and metabolic diseases complicating pregnancy, first trimester; E86.0 Dehydration; O99.511 Diseases of the respiratory system complicating pregnancy, first trimester; J45.909 Unspecified asthma, uncomplicated; O99.331 Smoking (tobacco) complicating pregnancy, first trimester; Z87.891 Personal history of nicotine dependence; Z91.030 Bee allergy status; Z88.7 Allergy status to serum and vaccine; Z91.040 Latex allergy status; Z91.018 Allergy to other foods; Z91.02 Food additives allergy status; Z91.013 Allergy to seafood; Z3A.08 8 weeks gestation of pregnancy
CPT/HCPCS: 99284; 96374; 96375; 36415; 80053; 83690; 85027; 81001; 84702; 76801; 76817; 96361; J2405

== ENCOUNTER 2021-01-28 12:48 | Outpatient (CLI) | payer OTHER ==
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
[2021-01-28 15:47] VITALS: PULSE 79; RESP 16; TEMP 97.4
== END 2021-01-28 17:00 | disposition home or self-care (01) ==
LOC: FBPOP 12:48
PROVIDERS: ATTEND Obstetrics & Gynecology
DX: Z33.1 Pregnant state, incidental (principal); Z3A.27 27 weeks gestation of pregnancy
CPT/HCPCS: 86900; 86901; 86850; 76805; G0463; 99213

== ENCOUNTER 2021-03-23 16:59 | Outpatient (CLI) | payer OTHER ==
[2021-03-23] MEDS: SOTROVIMAB (EUA) 500 MG in SODIUM CHLORIDE 0.9% 100 ML IVPB ONE (19:40)
[2021-03-23] MEDS: SODIUM CHLORIDE 0.9% 50 ML IVPB ONE (20:10)
[2021-03-23 22:12] VITALS: BP 112/57; PULSE 81; RESP 16; TEMP 97.5
--- NOTE | 2021-03-25 06:05 | P.MSEPDOC ---
Presenting Problems - Arrival Data Date of Arrival on Unit: 03/23/21 Time of Arrival on Unit: 17:05 Mode of Transport: Ambulatory - Complaint OB-Reason for Admission/Chief Complaint: Rule Out PROM, Other Comment: pt presented to triage with covid symptoms. pt states she had been possibly leaking fluid since last night. Medical History - Information : 4 Para: 3 Term: 3 : 0 Abortions: Spontaneous or Elective: 0 Number of Living Children: 3 - Gestational Age Gestational Age by [place] (wks/days): 34 Weeks and 4 Days - History Complications: Other Comment: covid test positive Review of Systems - Review of Systems Constitutional: Fatigue Breast: No problems ENT: Cough, Nasal congestion Cardiovascular: No problems Respiratory: No problems Gastrointestinal: No problems Genitourinary: No problems Musculoskeletal: No problems Neurological: No problems Skin: No problems Vital Signs - Temperature Temperature: 97.5 F Temperature Source: Temporal Artery Scan - Pulse Right Sitting Pulse Rate: 81 Pulse Assessment Method: Automatic Cuff - Respirations Respiratory Rate: 16 Oxygen Delivery Method: Room Air O2 Sat by Pulse Oximetry: 98 - Blood Pressure Sitting Blood Pressure: 112/57 Blood Pressure Mean: 75 Blood Pressure Source: Automatic Cuff Medical Screen Scoring - Cervical Exam Membranes: Intact - Assessment - Baby A Baseline FHR: 125 Heart Rate - NICHD Category: Category I (Normal) Physician Notification - Physician Notified Physician Notified Date: 03/23/21 Physician Notified Time: 18:00 Physician: Dr Richards New Order Received: Yes - Notification Comment Comment: orders for antibody infusion recieved Maternal Triage Index - Maternal Triage Index Presenting for scheduled procedure w/no complaint: No - Stat/Priority 1 Stat Priority 1: No - Urgent/Priority 2 Urgent Priority 2: No - Prompt/Priority 3 Prompt Priority 3: No - Non-Urgent/Priority 4 Non-Urgent Priority 4: Yes Criteria Met for Priority 4: c/o leaking fluid, vaginal pressure. pt tested positive for covid. Disposition - Disposition OB Disposition: Discharge to home, Written follow up instructions reviewed Discharge Date: 03/23/21 Discharge Time: 21:20 I agree with the RN Medical Screening Exam: Yes Case reviewed; plan agreed upon as documented in EMR&OBIX.: Yes Diagnosis: FALSE LABOR BEFORE 37 COMPLETED WEEKS OF GEST, THIRD TRI Additional Diagnoses: Positive Covid screen
== END 2021-03-23 21:20 | disposition home or self-care (01) ==
LOC: FBPOP 16:59
PROVIDERS: ATTEND Obstetrics & Gynecology
DX: O47.03 False labor before 37 completed weeks of gestation, third trimester (principal); Z3A.34 34 weeks gestation of pregnancy
CPT/HCPCS: 59025; 96365; 84112; 87635; G0463; Q0247; 99214

== ENCOUNTER 2021-04-15 16:22 | Outpatient (CLI) | payer OTHER ==
[2021-04-15 17:39] VITALS: BP 112/63; PULSE 88; RESP 17
--- NOTE | 2021-04-16 07:03 | P.MSEPDOC ---
Presenting Problems - Arrival Data Date of Arrival on Unit: 04/15/21 Time of Arrival on Unit: 16:22 Mode of Transport: Ambulatory - Complaint OB-Reason for Admission/Chief Complaint: Possible Onset of Labor, Rule Out SROM Comment: pt presents with pressure, back pain, and questionable SROM Medical History - Information : 4 Para: 3 Term: 3 : 0 Abortions: Spontaneous or Elective: 0 Number of Living Children: 3 - Gestational Age Gestational Age by [place] (wks/days): 37 Weeks and 6 Days Review of Systems - Review of Systems Constitutional: No problems Breast: No problems ENT: No problems Cardiovascular: No problems Respiratory: No problems Gastrointestinal: No problems Genitourinary: No problems Musculoskeletal: No problems Neurological: No problems Skin: No problems Vital Signs - Pulse Right Brachial Pulse Rate: 88 Pulse Assessment Method: Automatic Cuff - Respirations Respiratory Rate: 17 Oxygen Delivery Method: Room Air - Blood Pressure Right Arm Blood Pressure: 112/63 Blood Pressure Mean: 79 Blood Pressure Source: Automatic Cuff Medical Screen Scoring - Cervical Exam Dilation (cm): 1.5 Effacement (%): 80 Station: -2 Membranes: Intact - Uterine Contractions Frequency From (mins): 0 Intensity: Mild Resting: Soft to palpation - Assessment - Baby A Baseline FHR: 140 Heart Rate - NICHD Category: Category I (Normal) Physician Notification - Physician Notified Physician Notified Date: 04/15/21 Physician Notified Time: 17:05 Physician: Sheila Galvan Order Received: Yes - Notification Comment Comment: pt's amniosure negative, reactive nst, minimal contractions, apt with Dr. Galvan on Mar 24 Maternal Triage Index - Maternal Triage Index Presenting for scheduled procedure w/no complaint: No - Stat/Priority 1 Stat Priority 1: No - Urgent/Priority 2 Urgent Priority 2: No - Prompt/Priority 3 Prompt Priority 3: Yes Criteria Met for Priority 3: pt 37 6/7 ga, presents with possible SROM and pelvic pressure and back pain Disposition - Disposition OB Disposition: Triage, Discharge to home, Written follow up instructions reviewed Discharge Date: 04/15/21 Discharge Time: 17:30 I agree with the RN Medical Screening Exam: Yes Case reviewed; plan agreed upon as documented in EMR&OBIX.: Yes Diagnosis: FALSE LABOR BEFORE 37 COMPLETED WEEKS OF GEST, THIRD TRI
== END 2021-04-15 17:30 | disposition home or self-care (01) ==
LOC: FBPOP 16:22
PROVIDERS: ATTEND Obstetrics & Gynecology
DX: O47.1 False labor at or after 37 completed weeks of gestation (principal); Z3A.37 37 weeks gestation of pregnancy
CPT/HCPCS: 59025; 84112; G0463; 99213

== ENCOUNTER 2021-04-19 04:26 | Outpatient (CLI) | payer OTHER ==
[2021-04-19 05:56] VITALS: PULSE 97; RESP 16; TEMP 96.6
--- NOTE | 2021-04-22 08:07 | P.MSEPDOC ---
Presenting Problems - Arrival Data Date of Arrival on Unit: 04/19/21 Time of Arrival on Unit: 04:26 Mode of Transport: Wheelchair - Complaint OB-Reason for Admission/Chief Complaint: Possible Onset of Labor Comment: pt. states contractions every 3-5 min apart that started around 2 hours ago, pt. rating pain 10/10 Medical History - Information : 4 Para: 3 Term: 3 : 0 Abortions: Spontaneous or Elective: 0 Number of Living Children: 3 - Gestational Age Gestational Age by [place] (wks/days): 38 Weeks and 3 Days Review of Systems - Review of Systems Constitutional: No problems Breast: No problems ENT: No problems Cardiovascular: No problems Respiratory: No problems Gastrointestinal: No problems Genitourinary: No problems Musculoskeletal: No problems Neurological: No problems Skin: No problems Vital Signs - Temperature Temperature: 96.6 F Temperature Source: Temporal Artery Scan - Pulse Pulse Oximetery Pulse Rate: 97 Pulse Assessment Method: Automatic Cuff - Respirations Respiratory Rate: 16 Oxygen Delivery Method: Room Air O2 Sat by Pulse Oximetry: 97 Medical Screen Scoring - Cervical Exam Dilation (cm): 1 Effacement (%): 50 Station: -3 Membranes: Intact - Uterine Contractions Frequency From (mins): 3 Frequency To (mins): 11 Duration From (seconds): 30 Duration To (seconds): 60 Resting: Soft to palpation - Assessment - Baby A Baseline FHR: 120 Heart Rate - NICHD Category: Category I (Normal) NST: Reactive Physician Notification - Physician Notified Physician Notified Date: 04/19/21 Physician Notified Time: 05:37 Physician: Bindu Stoddard Order Received: Yes - Notification Comment Comment: orders to discharge home Maternal Triage Index - Maternal Triage Index Presenting for scheduled procedure w/no complaint: No - Stat/Priority 1 Stat Priority 1: No - Urgent/Priority 2 Urgent Priority 2: No - Prompt/Priority 3 Prompt Priority 3: Yes Criteria Met for Priority 3: pt. present to triage due to contractions pt. states started 2 hours ago, 10/10 pain, cervix 1,50,-3 unchanged after one hour, Dr. Stoddard states patient can wait another hour to be recheck, pt. states she will go home. Disposition - Disposition OB Disposition: Discharge to home Discharge Date: 04/19/21 Discharge Time: 05:42 I agree with the RN Medical Screening Exam: Yes Case reviewed; plan agreed upon as documented in EMR&OBIX.: Yes Diagnosis: FALSE LABOR AT OR AFTER 37 COMPLETED WEEKS OF GESTATION
== END 2021-04-19 05:42 | disposition home or self-care (01) ==
LOC: FBPOP 04:26
PROVIDERS: ATTEND Obstetrics & Gynecology
DX: O47.1 False labor at or after 37 completed weeks of gestation (principal); Z3A.38 38 weeks gestation of pregnancy
CPT/HCPCS: 59025; G0463; 99213

== ENCOUNTER 2021-04-23 06:13 | Inpatient (IN) | payer OTHER ==
[2021-04-23] MEDS ORDERED: LIDOCAINE 1% (PF) 10 MG/ML (30 ML SDV) SQ PRN (06:43)
[2021-04-23] MEDS ORDERED: OXYTOCIN 10 UNIT/ML 1 ML VIAL IM PRN (06:43)
[2021-04-23] MEDS ORDERED: CARBOPROST TROMETHAMINE 250 MCG/ML 1 ML AMP IM PRN (06:43)
[2021-04-23] MEDS ORDERED: TERBUTALINE 1 MG/ML VIAL SQ PRN (06:43)
[2021-04-23] MEDS ORDERED: METHYLERGONOVINE 0.2 MG/ML 1 ML AMP IM PRN (06:43)
[2021-04-23] MEDS ORDERED: OXYTOCIN 30 UNITS/500 ML NS 30 UNIT in SALINE 1 500ML.BAG IV SCH ×2 (06:45→11:30)
[2021-04-23] MEDS: LACTATED RINGERS 1,000 ML IV SCH ×2 (07:02→09:55)
[2021-04-23 07:13] VITALS: RESP 16
[2021-04-23 07:23] LABS: Basophils % (A) 0 %; Eosinophils # (A) 0.1 k/uL (0-0.7); Eosinophils % (A) 1 %; HCT 36.1 % (34.0-46.0); HGB 12.2 gm/dL (11.4-16.0); Lymphocytes # (A) 2.9 k/uL (1.0-4.8); Lymphocytes % (A) 26 %; MCV 94.2 fL (80.0-100.0); Mean Platelet Volume 7.7; Monocytes # (A) 0.5 k/uL (0-1.0); Monocytes % (A) 5 %; Neutrophils # (A) 7.3 k/uL (1.3-7.7); Neutrophils % (A) 66 %; Platelet Count 213 k/uL (150-450); RBC 3.83 m/uL (3.80-5.40); RDW 12.7 % (11.5-15.5); WBC 11.1 k/uL (3.8-10.6)
[2021-04-23] MEDS ORDERED: BUTORPHANOL 1 MG/ML 1 ML VIAL IV PRN (08:44)
[2021-04-23 09:00] LABS: Amphetamine Screen,Urine Not Detected (NotDetected); Barbiturate Screen,Urine Not Detected (NotDetected); Benzodiazepines Screen,Urine Not Detected (NotDetected); Cocaine Screen,Urine Not Detected (NotDetected); Methadone Screen, Urine Not Detected (NotDetected); Opiate Screen,Urine Not Detected (NotDetected); Oxycodone Screen, Urine Not Detected (NotDetected); Phencyclidine Screen,Urine Not Detected (NotDetected); Tricyclic Antidepressant,Urine Not Detected (NotDetected); Urn Cannabinoid Scrn Detected (NotDetected)
[2021-04-23] MEDS ORDERED: SODIUM CHLORIDE 0.9% 100 ML BAG ONE (10:26)
[2021-04-23] MEDS ORDERED: fentaNYL (PF) 50 MCG/ML 5 ML AMP ONE (10:26)
[2021-04-23] MEDS ORDERED: ROPIVACAINE 5MG/ML 20ML VIAL ONE (10:26)
[2021-04-23] MEDS ORDERED: HYDROCORTISONE 2.5% RECTAL CREAM 30 GM TUBE RECTAL PRN (11:23)
[2021-04-23] MEDS ORDERED: ACETAMINOPHEN TAB 325 MG TAB PO PRN (11:23)
[2021-04-23] MEDS ORDERED: BENZOCAINE/MENTHOL SPRAY 1 GM/SPRAY AEROSOL TOPICAL PRN (11:23)
[2021-04-23] MEDS ORDERED: diphenhydrAMINE 50 MG/ML 1 ML VIAL IVP PRN ×2 (11:23)
[2021-04-23] MEDS ORDERED: diphenhydrAMINE 25 MG CAP PO PRN (11:23)
[2021-04-23] MEDS ORDERED: diphenhydrAMINE 50 MG CAP PO PRN (11:23)
[2021-04-23] MEDS ORDERED: ZOLPIDEM 5 MG TAB PO PRN (11:23)
[2021-04-23] MEDS ORDERED: SIMETHICONE 80 MG CHEWABLE PO PRN (11:23)
[2021-04-23] MEDS ORDERED: LANOLIN CREAM 5 GM TUBE TOPICAL PRN (11:23)
--- NOTE | 2021-04-23 12:39 | P.HPOB ---
History of Present Illness H&P Date: 04/23/21 Chief Complaint: induction of labor 26 year old presents at 39 weeks for induction of labor. Her cervix was 2/80/-2 and she was evans every few minutes. heart tones 140 with moderate variability and reactive. In a recent US, there was a question of dilated right ureter though the kidney appeared normal-rec renal US. Review of Systems All systems: negative Constitutional: Denies chills, Denies fever Eyes: denies blurred vision, denies pain Ears, nose, mouth and throat: Denies headache, Denies sore throat Cardiovascular: Denies chest pain, Denies shortness of breath Respiratory: Denies cough Gastrointestinal: Denies abdominal pain, Denies diarrhea, Denies nausea, Denies vomiting Genitourinary: Denies dysuria, Denies hematuria Musculoskeletal: Denies myalgias Integumentary: Denies pruritus, Denies rash Neurological: Denies numbness, Denies weakness Psychiatric: Denies anxiety, Denies depression Endocrine: Denies fatigue, Denies weight change Past Medical History Past Medical History: Asthma Additional Past Medical History / Comment(s): Covid 2/1 and chronic migraines History of Any Multi-Drug Resistant Organisms: None Reported Past Surgical History: No Surgical Hx Reported Past Anesthesia/Blood Transfusion Reactions: No Reported Reaction Past Psychological History: Anxiety, Depression Smoking Status: Former smoker Past Alcohol Use History: None Reported Additional Past Alcohol Use History / Comment(s): Pt reports smoking before Past Drug Use History: Marijuana Additional Drug Use History / Comment(s): Pt reports "edibles" and smoking during early - Past Family History Father Family Medical History: Asthma, Cancer, GERD/Reflux, Hypertension Additional Family Medical History / Comment(s): Melanomna Mother History Unknown: Yes Family Medical History: Thyroid Disorder Additional Family Medical History / Comment(s): Gout, TMJ, migraines, veniere disease Medications and Allergies Home Medications Medication Instructions Recorded Confirmed Type Acetaminophen Tab [Tylenol Tab] 650 mg PO Q6H PRN 01/11/19 04/23/21 History Albuterol Inhaler [Ventolin Hfa 1 puff INHALATION DIRECTED PRN 04/05/21 04/23/21 History Inhaler] Pnv No.95/Ferrous Fum/Folic AC 1 each PO DAILY 04/15/21 04/23/21 History [ Multivitamin Tablet] Allergies Allergy/AdvReac Type Severity Reaction Status Date / Time bee venom protein (honey bee) Allergy Anaphylaxis Verified 04/19/21 04:30 patel flavor Allergy Itching Verified 04/23/21 06:41 grape Allergy Anaphylaxis Verified 04/19/21 04:30 Influenza Virus Vaccines Allergy Rash/Hives Verified 04/19/21 04:30 latex Allergy Rash/Hives Verified 04/23/21 06:41 Mushroom Allergy Anaphylaxis Verified 04/19/21 04:30 shellfish derived [Shrimp] Allergy Anaphylaxis Verified 04/19/21 04:30 coconut AdvReac Nausea & Verified 04/19/21 04:30 Vomiting Exam Osteopathic Statement: *. No significant issues noted on an osteopathic structural exam other than those noted in the History and Physical/Consult. Vital Signs Temp Pulse Pulse Resp BP Pulse Ox 04/23/21 12:13 67 16 101/68 04/23/21 11:58 61 16 101/59 04/23/21 11:43 78 16 101/61 100 04/23/21 11:28 83 16 103/61 100 04/23/21 11:13 96.6 F L 82 16 98/63 100 04/23/21 06:25 96.6 F L 88 16 120/62 99 Intake and Output 04/22/21 04/23/21 04/23/21 22:59 06:59 14:59 Intake Total 174.5 Output Total 150 Balance 24.5 Intake: Intake, IV Titration 174.5 Amount Oxytocin 30 Units/500 ml 174.5 Ns 30 unit In Saline 1 500ml.bag @ Per Protocol IV .Q0M [facility] Rx#:[id number] Output: Estimated Blood Loss 150 Other: # Voids 1 Weight 68.492 kg Heart: Regular rate and rhythm Lungs: Clear to auscultation bilaterally Abdomen: Soft, nontender Extremities: Negative Homans sign Results Result Diagrams: 04/23/21 06:55 Abnormal Lab Results - Last 24 Hours (Table) 04/23/21 04/23/21 Range/Units 06:55 08:07 WBC 11.1 H (3.8-10.6) k/uL U Marijuana (THC) Screen Detected H (NotDetected) Assessment and Plan (1) Encounter for induction of labor Current Visit: Yes Status: Acute Code(s): Z34.90 - ENCNTR FOR SUPRVSN OF NORMAL , UNSP, UNSP TRIMESTER SNOMED Code(s): 834849671 (2) History of marijuana use Current Visit: Yes Status: Acute Code(s): Z87.898 - PERSONAL HISTORY OF OTHER SPECIFIED CONDITIONS SNOMED Code(s): 151600286 Plan: 1. induction of labor with amniotomy and pitocin 2. anticipate normal vaginal delivery
--- NOTE | 2021-04-23 12:41 | P.PROBDLV ---
Vaginal Delivery Note - . Vaginal Delivery Note: 26 year old presents at 39 weeks for induction of labor. Her cervix was 2/80/-2 and she was evans every few minutes. heart tones 140 with moderate variability and reactive. Pitocin was started. Amniotomy performed at 7:19 AM and clear fluid noted. She got an epidural just after 10 AM and her cervix was completely dilated at 10:57 AM. Head delivered OA, anterior shoulder delivered gentle downward guidance of the posterior shoulder and rest of body. Nose and mouth bulb suctioned, cord clamped and cut, infant placed on mother's abdomen. Apgars 9, 9, weight 6 lbs. 7 oz. Placenta delivered spontaneously, intact with three-vessel cord at 11 AM. Vagina, cervix, perineum inspected. No lacerations noted. Estimated blood loss 150 mL. Mother and baby in stable condition.
[2021-04-23] MEDS: IBUPROFEN 600 MG TAB PO SCH ×3 (14:06→19:22)
[2021-04-23] MEDS: SENNOSIDES-DOCUSATE SODIUM 1 EACH TAB PO SCH (19:23)
[2021-04-23 23:56] VITALS: PULSE 73
--- NOTE | 2021-04-24 05:17 | P.PNOBGVD ---
Subjective - Subjective Patient reports: Reports appetite normal, Reports voiding normally, Reports pain well controlled, Reports ambulating normally : doing well Objective - Latest Vital Signs Latest vital signs: Vital Signs Temp Pulse Pulse Resp BP Pulse Ox 04/23/21 23:54 97.5 F L 73 16 112/72 98 04/23/21 20:00 97.5 F L 66 16 127/66 99 04/23/21 15:21 98.3 F 68 16 106/64 98 04/23/21 13:13 70 16 105/70 04/23/21 12:43 74 16 103/51 04/23/21 12:13 67 16 101/68 04/23/21 11:58 61 16 101/59 04/23/21 11:43 78 16 101/61 100 04/23/21 11:28 83 16 103/61 100 04/23/21 11:13 96.6 F L 82 16 98/63 100 04/23/21 06:25 96.6 F L 88 16 120/62 99 Intake and Output 04/23/21 04/23/21 04/24/21 14:59 22:59 06:59 Intake Total 174.5 Output Total 225 Balance -50.5 Intake: Intake, IV Titration 174.5 Amount Oxytocin 30 Units/500 ml 174.5 Ns 30 unit In Saline 1 500ml.bag @ Per Protocol IV .Q0M [facility] Rx#:[id number] Output: Estimated Blood Loss 150 Output, Quantitative 75 Blood Loss Other: # Voids 1 2 1 - Exam Lungs: bilateral: normal Chest: Normal S1, Normal S2 Extremities: Present: normal Abdomen: Present: normal appearance, soft Uterus: Present: normal, firm - Labs Labs: Abnormal Lab Results - Last 24 Hours (Table) 04/23/21 04/23/21 Range/Units 06:55 08:07 WBC 11.1 H (3.8-10.6) k/uL U Marijuana (THC) Screen Detected H (NotDetected) Assessment and Plan Assessment: day #1. Patient is resting without complaints and wishes to go home. Vital signs are stable she's afebrile. Uterus is firm nontender and she is having normal lochia. I impression this is a normal course. Plan is to continue routine care discharge home later today. (1) Normal vaginal delivery Current Visit: No Status: Acute Code(s): O80 - ENCOUNTER FOR FULL-TERM UNCOMPLICATED DELIVERY SNOMED Code(s): 48677696
--- NOTE | 2021-04-24 05:21 | P.DS ---
Providers Date of admission: 04/23/21 06:13 Expected date of discharge: 04/24/21 Attending physician: Sheila Galvan Primary care physician: Stated None - Discharge Diagnosis(es) (1) Normal vaginal delivery Current Visit: No Status: Acute Hospital Course: Please see dictated H&P and delivery note per Dr. Galvan on this patient's admission. In brief summary this is a 26-year-old 4 para 3 female 39 weeks gestation admitted to labor and delivery for induction of labor secondary to maternal discomfort. Patient is admitted she quickly goes on to have a vaginal delivery viable female . Please see dictated delivery note. day #1 patient is without complaints wishes to go home. Patient's felt be stable for discharge home follow up Dr. Galvan and 6 weeks. Procedures: Induction of labor and normal vaginal delivery Patient Condition at Discharge: Good Plan - Discharge Summary New Discharge Prescriptions: New Ibuprofen [Motrin] 600 mg PO Q6H #30 tab No Action Acetaminophen Tab [Tylenol Tab] 650 mg PO Q6H PRN PRN Reason: Pain Albuterol Inhaler [Ventolin Hfa Inhaler] 1 puff INHALATION DIRECTED PRN PRN Reason: Shortness Of Breath Pnv No.95/Ferrous Fum/Folic AC [ Multivitamin Tablet] 1 each PO DAILY Discharge Medication List Acetaminophen Tab [Tylenol Tab] 650 mg PO Q6H PRN 01/11/19 [History] Albuterol Inhaler [Ventolin Hfa Inhaler] 1 puff INHALATION DIRECTED PRN 04/05/21 [History] Pnv No.95/Ferrous Fum/Folic AC [ Multivitamin Tablet] 1 each PO DAILY 04/15/21 [History] Ibuprofen [Motrin] 600 mg PO Q6H #30 tab 04/24/21 [Rx] Follow up Appointment(s)/Referral(s): Sheila Galvan DO [Doctor of Osteopathic Medicine] - 06/01/21 3:45 pm Patient Instructions/Handouts: Vaginal Delivery (DC) Activity/Diet/Wound Care/Special Instructions: No intercourse or anything per vagina for 6 weeks. Please call if any fever, chills, excessive vaginal bleeding, and/or abdominal pain. Discharge Disposition: HOME SELF-CARE
[2021-04-24 09:07] VITALS: BP 119/69; TEMP 98
[2021-04-24] MEDS: SENNOSIDES-DOCUSATE SODIUM 1 EACH TAB PO SCH (09:58)
[2021-04-24] MEDS: IBUPROFEN 600 MG TAB PO SCH (10:38)
== END 2021-04-24 12:52 | disposition home or self-care (01) | DRG 807 ==
LOC: 4FBP 06:13
PROVIDERS: ADMIT Obstetrics & Gynecology; ATTEND Obstetrics & Gynecology
DX: O99.52 Diseases of the respiratory system complicating childbirth (principal); Z37.0 Single live birth; F12.11 Cannabis abuse, in remission; Z3A.39 39 weeks gestation of pregnancy; J45.909 Unspecified asthma, uncomplicated; O99.354 Diseases of the nervous system complicating childbirth; G43.909 Migraine, unspecified, not intractable, without status migrainosus; Z79.899 Other long term (current) drug therapy; Z86.16 Personal history of COVID-19; Z86.59 Personal history of other mental and behavioral disorders; Z91.030 Bee allergy status; Z91.02 Food additives allergy status; Z91.040 Latex allergy status; Z91.013 Allergy to seafood; Z88.7 Allergy status to serum and vaccine; Z91.018 Allergy to other foods; Z82.5 Family history of asthma and other chronic lower respiratory diseases; Z82.49 Family history of ischemic heart disease and other diseases of the circulatory system; Z83.79 Family history of other diseases of the digestive system; Z83.49 Family history of other endocrine, nutritional and metabolic diseases; Z82.69 Family history of other diseases of the musculoskeletal system and connective tissue; Z80.8 Family history of malignant neoplasm of other organs or systems; Z82.0 Family history of epilepsy and other diseases of the nervous system
CPT/HCPCS: 80306; 85025; 86850; 86900; 86901

== ENCOUNTER → 2022-01-25 | Outpatient (CLI) | payer OTHER | END | disposition home or self-care (01) | LOC: LABWHC1 14:24 | PROVIDERS: ATTEND Obstetrics & Gynecology | DX: N94.89 Other specified conditions associated with female genital organs and menstrual cycle (principal); N91.2 Amenorrhea, unspecified | CPT/HCPCS: 36415; 84702 ==

== ENCOUNTER 2023-01-26 07:44 | Day surgery (SDC) | payer OTHER ==
--- NOTE | 2023-01-25 23:50 | P.HPOB ---
History of Present Illness H&P Date: 01/25/23 Chief Complaint: family planning, dysmenorrhea 27 year old presents for laparoscopic tubal ligation, removal of nexplanon, possible cauterization of endometriosis, possible laparotomy. Review of Systems All systems: negative Constitutional: Denies chills, Denies fever Eyes: denies blurred vision, denies pain Ears, nose, mouth and throat: Denies headache, Denies sore throat Cardiovascular: Denies chest pain, Denies shortness of breath Respiratory: Denies cough Gastrointestinal: Denies abdominal pain, Denies diarrhea, Denies nausea, Denies vomiting Genitourinary: Denies dysuria, Denies hematuria Musculoskeletal: Denies myalgias Integumentary: Denies pruritus, Denies rash Neurological: Denies numbness, Denies weakness Psychiatric: Denies anxiety, Denies depression Endocrine: Denies fatigue, Denies weight change Past Medical History Past Medical History: Asthma, GERD/Reflux Additional Past Medical History / Comment(s): Covid 2021, chronic migraines, kidney stones History of Any Multi-Drug Resistant Organisms: None Reported Past Surgical History: No Surgical Hx Reported Past Anesthesia/Blood Transfusion Reactions: No Reported Reaction Additional Past Anesthesia/Blood Transfusion Reaction / Comment(s): no family problems w/anesthesia that she knows of Smoking Status: Current every day smoker - Past Family History Father Family Medical History: Asthma, Cancer, GERD/Reflux, Hypertension Additional Family Medical History / Comment(s): Melanomna Mother History Unknown: Yes Family Medical History: Thyroid Disorder Additional Family Medical History / Comment(s): Gout, TMJ, migraines, veniere disease Medications and Allergies Home Medications Medication Instructions Recorded Confirmed Type Albuterol Inhaler [Ventolin Hfa 1 puff INHALATION DIRECTED PRN 04/05/21 01/23/23 History Inhaler] Naproxen [Naprosyn] 375 mg PO DIRECTED PRN 01/23/23 01/23/23 History Allergies Allergy/AdvReac Type Severity Reaction Status Date / Time bee venom protein (honey bee) Allergy Anaphylaxis Verified 01/23/23 12:23 patel flavor Allergy Itching Verified 01/23/23 12:23 grape Allergy Anaphylaxis Verified 01/23/23 12:23 Influenza Virus Vaccines Allergy Rash/Hives Verified 01/23/23 12:23 latex Allergy Rash/Hives Verified 01/23/23 12:23 Mushroom Allergy Anaphylaxis Verified 01/23/23 12:23 shellfish derived [Shrimp] Allergy Anaphylaxis Verified 01/23/23 12:23 coconut AdvReac Nausea & Verified 01/23/23 12:23 Vomiting,hives Exam Osteopathic Statement: *. No significant issues noted on an osteopathic structural exam other than those noted in the History and Physical/Consult. Heart: RRR Lungs: CTAB Abdomen: soft, nontender Extremeties: neg nay's Assessment and Plan (1) Family planning Status: Acute Code(s): Z30.09 - ENCOUNTER FOR OTH GENERAL CNSL AND ADVICE ON CONTRACEPTION SNOMED Code(s): 093644772 (2) Dysmenorrhea Status: Acute Code(s): N94.6 - DYSMENORRHEA, UNSPECIFIED SNOMED Code(s): 790812746 (3) Dyspareunia Status: Acute Code(s): OAM3200 - SNOMED Code(s): 73054116 Plan: 1. laparoscopic tubal ligation, removal of nexplanon, possible cauterization of endometriosis and possible laparotomy
[~2023-01-26 07:44] MED LIST: Pre Op ABX Message 1 EACH MISC MISCELLANE ONE
[2023-01-26] MEDS ORDERED: LACTATED RINGERS 1,000 ML IV ONE ×2 (08:02→10:45)
[2023-01-26] MEDS ORDERED: LACTATED RINGERS 1,000 ML IV SCH (08:02)
[2023-01-26] MEDS ORDERED: ONDANSETRON 4 MG/2 ML VIAL IVP ONE ×3 (08:02→11:13)
[2023-01-26] MEDS ORDERED: DEXAMETHASONE SOD PHOSPHATE 4 MG/ML 1 ML VIAL IV ONE (08:02)
[2023-01-26] MEDS ORDERED: HYDROmorphone 0.5 MG/0.5 ML SYRINGE IVP PRN (08:02)
[2023-01-26] MEDS ORDERED: DEXAMETHASONE SOD PHOSPHATE 4 MG/ML 1 ML VIAL IVP ONE (08:26)
[2023-01-26] MEDS ORDERED: SCOPOLAMINE 1 MG/72 HR PATCH TRANSDERM ONE (08:26)
[2023-01-26] MEDS ORDERED: MIDAZOLAM 2 MG/2 ML VIAL IVP ONE (08:30)
[2023-01-26] MEDS ORDERED: SUCCINYLCHOLINE CHLORIDE 200 MG/10 ML VIAL IV ONE (09:10)
[2023-01-26] MEDS ORDERED: KETOROLAC 15 MG/ML 1 ML VIAL ONE (09:10)
[2023-01-26] MEDS ORDERED: ROCURONIUM 10 MG/ML (5 ML VIAL) IV ONE (09:10)
[2023-01-26] MEDS ORDERED: PHENYLEPHRINE-0.9% NACL SYG 1,000 MCG/10 ML SYRINGE ONE (09:10)
[2023-01-26] MEDS ORDERED: LIDOCAINE 1% INJ 10MG/ML (20 ML MDV) ONE (09:10)
[2023-01-26] MEDS ORDERED: PROPOFOL 10 MG/ML 20 ML VIAL IV ONE (09:10)
[2023-01-26] MEDS ORDERED: NEOSTIGMINE 1 MG/ML 10 ML VIAL ONE (09:10)
[2023-01-26] MEDS ORDERED: GLYCOPYRROLATE 0.2 MG/ML 2 ML VIAL ONE (09:10)
[2023-01-26] MEDS ORDERED: fentaNYL (PF) 50 MCG/ML 2 ML AMP ONE (09:10)
[2023-01-26] MEDS ORDERED: BUPIVACAINE (PF) 0.25% 30 ML VIAL SQ ONE ×2 (09:40)
--- NOTE | 2023-01-26 10:12 | P.OP ---
Date of Procedure: 01/26/23 Preoperative Diagnosis: 1. family planning 2. pelvic pain 3. nexplanon in place Postoperative Diagnosis: same Procedure(s) Performed: Laparoscopic tubal ligation, diagnostic laparoscopy and removal of Nexplanon Anesthesia: ADE Surgeon: Sheila Galvan Estimated Blood Loss (ml): 5 IV fluids (ml): 600 Urine output (ml): 400 Pathology: none sent Condition: stable Disposition: PACU Operative Findings: Nexplanon found in place. Uterus sounded to 8 cm. Normal uterus, tubes, ovaries. No signs of endometriosissigns of pelvic congestion no signs of adhesions or any pathology in the pelvis. Description of Procedure: Patient was taken to the operating room where general anesthesia was obtained without difficulty. She was prepped and draped in normal sterile fashion in the dorsal lithotomy position, legs placed in the Richardson stirrups. Bladder drained of all urine. [place] speculum placed in the vagina and the anterior lip the cervix was grasped with single-tooth tenaculum. The uterus is sounded to 7 cm and the kroner manipulator was placed. Attention was then turned to the abdomen and gloves were changed. A 10 mm infraumbilical incision was made the scalpel and 10 mm optical trocar was placed under direct visualization. A 5 mm suprapubic Incision was made and a 5 mm optical trocar was placed under direct visualization. Survey of the pelvis revealed normal uterus tubes and ovaries. I viewed the bladder, both ovarian fossa, posterior cul-de-sac, the uterus, bilateral pelvic ferris and the upper abdomen. I saw no signs of endometriosis or pathology. The left fallopian tube was grasped with a Kleppinger and fulgurated 2-3 cm on this side in the ampullar portion. The right fallopian tube was grasped with a Kleppinger and fulgurated 2-3 cm in the ampullar portion. All instruments were then removed from the abdomen and vagina. The 10 mm infraumbilical incision was closed with 0 Vicryl and the fascial layer and then 4-0 Vicryl in a subcuticular fashion. The 5 mm incision was closed with 4- 0 Vicryl in a subcuticular fashion. Attention then turned to the left arm where the Nexplanon was palpated easily. 1 mL of cord or percent Marcaine was injected subdermally. #15 blade was used to make a small incision. The Nexplanon was delivered through the incision grasped with a hemostat and removed easily. The incision was covered with a Steri-Strip. Patient tolerated p rocedure well, sponge and instrument counts correct 2 and she was taken to recovery room in stable condition.
[2023-01-26 10:13] VITALS: TEMP 97.1
[2023-01-26] MEDS ORDERED: ONDANSETRON 4 MG/2 ML VIAL ONE (11:11)
[2023-01-26 12:14] VITALS: BP 102/66; PULSE 66; RESP 17
== END 2023-01-26 12:17 | disposition home or self-care (01) ==
LOC: OR 07:44
PROVIDERS: ATTEND Obstetrics & Gynecology
DX: Z30.2 Encounter for sterilization (principal); N94.6 Dysmenorrhea, unspecified; J45.909 Unspecified asthma, uncomplicated; F17.200 Nicotine dependence, unspecified, uncomplicated; K21.9 Gastro-esophageal reflux disease without esophagitis; Z87.442 Personal history of urinary calculi; Z86.16 Personal history of COVID-19; Z82.49 Family history of ischemic heart disease and other diseases of the circulatory system; Z83.79 Family history of other diseases of the digestive system; Z83.49 Family history of other endocrine, nutritional and metabolic diseases; Z79.51 Long term (current) use of inhaled steroids; Z91.030 Bee allergy status; Z91.040 Latex allergy status; Z88.7 Allergy status to serum and vaccine; Z79.899 Other long term (current) drug therapy
CPT/HCPCS: 58670; 11982; 81025; J2250; J0330; J1100; J2710; J2405; J2001; J3010; J1885; J2704; J1170; J2371; J0665

== ENCOUNTER 2023-01-27 19:25 | Emergency (ER) | payer OTHER ==
[2023-01-27 20:01] VITALS: RESP 18; TEMP 98.2
[2023-01-27] MEDS ORDERED: ONDANSETRON 4 MG ODT STARTER PACK 2 TAB BTL PO STA (21:07)
[2023-01-27] MEDS ORDERED: ONDANSETRON ODT 4 MG TAB PO STA (21:07)
--- NOTE | 2023-01-27 21:09 | ED ---
General Adult HPI - General Chief complaint: Recheck/Abnormal Lab/Rx Stated complaint: Recheck Time Seen by Provider: 01/27/23 19:50 Source: patient Mode of arrival: ambulatory Limitations: no limitations - History of Present Illness Initial comments: 27-year-old female presents to the emergency department with concern that her incision site is bleeding. Patient had a tubal ligation yesterday. States that she has been covered and iodine. She called her PAPER CAP MACHINE OPERATOR office today and asked if she could take a shower. They said that it was okay. Patient states that she took a shower and did get her incisions wet. She also reports that she was ambulating around a grocery store all day as she was having difficulty sitting still. She noted that she started having some bright pink coloration near her incision sites. She tried to call her PAPER CAP MACHINE OPERATOR again however she did not get a response and therefore came into the emergency department for evaluation of her incisions. She does admit to pain at the incision site. She has been taking Tylenol 3s. Which are making her nauseated. She denies any vomiting. No vaginal bleeding. No fevers. No pustular drainage from the site. No other alleviating, precipitating or modifying factors - Related Data Home Medications Medication Instructions Recorded Confirmed Albuterol Inhaler [Ventolin Hfa 1 puff INHALATION DIRECTED PRN 04/05/21 01/26/23 Inhaler] Naproxen [Naprosyn] 375 mg PO DIRECTED PRN 01/23/23 01/26/23 Previous Rx's Medication Instructions Recorded Ondansetron Odt [Zofran Odt] 4 mg PO Q8HR PRN #20 tab 01/27/23 Allergies Allergy/AdvReac Type Severity Reaction Status Date / Time bee venom protein (honey bee) Allergy Anaphylaxis Verified 01/27/23 19:47 patel flavor Allergy Itching Verified 01/27/23 19:47 grape Allergy Anaphylaxis Verified 01/27/23 19:47 Influenza Virus Vaccines Allergy Rash/Hives Verified 01/27/23 19:47 latex Allergy Rash/Hives Verified 01/27/23 19:47 Mushroom Allergy Anaphylaxis Verified 01/27/23 19:47 shellfish derived [Shrimp] Allergy Anaphylaxis Verified 01/27/23 19:47 coconut AdvReac Nausea & Verified 01/27/23 19:47 Vomiting,hives Review of Systems ROS Statement: Those systems with pertinent positive or pertinent negative responses have been documented in the HPI. ROS Other: All systems not noted in ROS Statement are negative. Past Medical History Past Medical History: Asthma, GERD/Reflux Additional Past Medical History / Comment(s): Covid 2021, chronic migraines, kidney stones History of Any Multi-Drug Resistant Organisms: None Reported Past Surgical History: No Surgical Hx Reported Past Anesthesia/Blood Transfusion Reactions: No Reported Reaction Additional Past Anesthesia/Blood Transfusion Reaction / Comment(s): no family problems w/anesthesia that she knows of Past Psychological History: Anxiety, Depression Smoking Status: Current every day smoker Past Alcohol Use History: None Reported Past Drug Use History: Marijuana - Past Family History Father Family Medical History: Asthma, Cancer, GERD/Reflux, Hypertension Additional Family Medical History / Comment(s): Melanomna Mother History Unknown: Yes Family Medical History: Thyroid Disorder Additional Family Medical History / Comment(s): Gout, TMJ, migraines, veniere disease General Exam Limitations: no limitations General appearance: alert, in no apparent distress GI/Abdominal exam: Present: soft, normal bowel sounds, other (Patient has an umbilical incision as well as a suprapubic incision. Both are covered in Steri- Strips of dried blood. Steri-Strips are removed and incision is well approximated. There is only a small tinge of bright red blood present. This is wiped away and does not return). Absent: distended, tenderness, guarding, rebound, rigid Course Vital Signs 01/27/23 01/27/23 19:43 21:24 Temperature 98.2 F Pulse Rate 76 69 Respiratory 18 18 Rate Blood Pressure 113/67 125/93 O2 Sat by Pulse 98 99 Oximetry Medical Decision Making - Medical Decision Making Was pt. sent in by a medical professional or institution (, PA, LAMP SHADES SUPERVISOR, urgent care, hospital, or [facility]...) When possible be specific @ -No Did you speak to anyone other than the patient for history (EMS, parent, family, police, friend...)? What history was obtained from this source @ -No Did you review nursing and triage notes (agree or disagree)? Why? @ -I reviewed and agree with nursing and triage notes Were old charts reviewed (outside hosp., previous admission, EMS record, old EKG, old radiological studies, urgent care reports/EKG's, [facility] records)? Report findings @ -No old charts were reviewed Differential Diagnosis (chest pain, altered mental status, abdominal pain women, abdominal pain men, vaginal bleeding, weakness, fever, dyspnea, syncope, headache, dizziness, GI bleed, back pain, seizure, CVA, palpatations, mental health, musculoskeletal)? @ -Incision dehiscence, infection, hematoma EKG interpreted by me (3pts min.). @ -Not done X-rays interpreted by me (1pt min.). @ -None done CT interpreted by me (1pt min.). @ -None done U/S interpreted by me (1pt. min.). @ -None done What testing was considered but not performed or refused? (CT, X-rays, U/S, labs)? Why? @ -None What meds were considered but not given or refused? Why? @ -None Did you discuss the management of the patient with other professionals (professionals i.e. , PA, LAMP SHADES SUPERVISOR, lab, RT, psych nurse, social worker assistant, senior j2ee developer, teacher, customs and border protection officer, case assembler)? Give summary @ -No Was smoking cessation discussed for >3mins.? @ -No Was critical care preformed (if so, how long)? @ -No Were there social determinants of health that impacted care today? How? (Homelessness, low income, unemployed, alcoholism, drug addiction, transportation, low edu. Level, literacy, decrease access to med. care, shelter, rehab)? @ -No Was there de-escalation of care discussed even if they declined (Discuss DNR or withdrawal of care, Hospice)? DNR status @ -No What co-morbidities impacted this encounter? (DM, HTN, Smoking, COPD, CAD, Cancer, CVA, ARF, Chemo, Hep., AIDS, mental health diagnosis, sleep apnea, morbid obesity)? @ -None Was patient admitted / discharged? Hospital course, mention meds given and route, prescriptions, significant lab abnormalities, going to OR and other pertinent info. @ -Discharged. Upon arrival patient was placed into room 5. Thorough history and physical exam was performed. I did cleanse the patient's incisions and redress them with Steri-Strips, Mastisol and a large Band-Aid. Patient is instructed to rest. No heavy lifting. Follow up with her PAPER CAP MACHINE OPERATOR and return for any new or worsening symptoms. She is given Zofran for her nausea and instructed to take the Tylenol 3 on a full stomach. Patient was agreeable to and discharged in stable condition Undiagnosed new problem with uncertain prognosis? @ -No Drug Therapy requiring intensive monitoring for toxicity (Heparin, Nitro, Insulin, Cardizem)? @ -No Were any procedures done? @ -No Diagnosis/symptom? @ -Evaluation for surgical incision dehiscence Acute, or Chronic, or Acute on Chronic? @ -Acute Uncomplicated (without systemic symptoms) or Complicated (systemic symptoms)? @ -Uncomplicated Side effects of treatment? @ -No Exacerbation, Progression, or Severe Exacerbation? @ -No Poses a threat to life or bodily function? How? (Chest pain, [place], [place], pneumonia, PE, COPD, DKA, ARF, appy, cholecystitis, CVA, Diverticulitis, Homicidal, Suicidal, threat to staff... and all critical care pts) @ -No Disposition Clinical Impression: Family planning, Pain at surgical incision Disposition: HOME SELF-CARE Condition: Stable Additional Instructions: Keep your incision clean and dry. Follow-up with your surgeon return for any new or worsening symptoms Prescriptions: Ondansetron Odt [Zofran Odt] 4 mg PO Q8HR PRN #20 tab PRN Reason: Nausea Is patient prescribed a controlled substance at d/c from ED?: No Referrals: Tiara Welsh DO [Primary Care Provider] - 1-2 days Time of Disposition: 21:09
[2023-01-27 21:34] VITALS: BP 125/93; PULSE 69
== END 2023-01-27 21:32 | disposition home or self-care (01) ==
LOC: EC 19:25
DX: Z30.09 Encounter for other general counseling and advice on contraception (principal); G89.18 Other acute postprocedural pain; F17.200 Nicotine dependence, unspecified, uncomplicated; F12.90 Cannabis use, unspecified, uncomplicated; J45.909 Unspecified asthma, uncomplicated; Z79.899 Other long term (current) drug therapy; Z86.59 Personal history of other mental and behavioral disorders; Z91.030 Bee allergy status; Z91.018 Allergy to other foods; Z91.040 Latex allergy status; Z91.013 Allergy to seafood; Z88.7 Allergy status to serum and vaccine; Z88.8 Allergy status to other drugs, medicaments and biological substances; Z86.16 Personal history of COVID-19
CPT/HCPCS: 99283; S0119

== ENCOUNTER 2023-10-22 16:01 | Emergency (ER) | payer OTHER ==
[2023-10-22 16:07] VITALS: BP 116/68; PULSE 70; RESP 17; TEMP 97.6
[2023-10-22] MEDS ORDERED: SODIUM CHLORIDE 0.9% 1,000 ML IV STA (16:45)
[2023-10-22] MEDS ORDERED: MORPHINE SULFATE 4 MG/ML SYRINGE IVP STA (16:47)
--- NOTE | 2023-10-22 17:00 | ED ---
Abdominal Pain HPI - General Chief Complaint: Abdominal Pain Stated Complaint: poss infection-Naval,Urogential Time Seen by Provider: 10/22/23 16:21 Source: patient Mode of arrival: ambulatory Limitations: no limitations - History of Present Illness Initial Comments: 28-year-old female presenting chief complaint of abdominal pain. Patient states that the symptoms have been worsening over the last 2 weeks. This initially started with some discomfort and itching around her previous tubal ligation incision of the umbilicus. Since then she states that sometimes she gets some discharge from the umbilicus. Now the patient is having pain that shoots up to the umbilicus with urination. She is also having some left-sided flank pain. States that she feels a heavy pressure in the left pelvic region. This is particularly worse during intercourse. She has had some spotting. No abnormal vaginal discharge. No fevers or chills. She does admit to some lightheadedness and nausea, no vomiting. She is also complaining of increased pain and swelling near her fractured teeth on the right side. She is trying to get in with a dentist at this time but states that she has had a foul taste in her mouth and is worried about the increased pain no trismus, drooling, difficulty breathing or swallowing. - Related Data Home Medications Medication Instructions Recorded Confirmed Albuterol Inhaler [Ventolin Hfa 1 puff INHALATION DIRECTED PRN 04/05/21 01/26/23 Inhaler] Naproxen [Naprosyn] 375 mg PO DIRECTED PRN 01/23/23 01/26/23 Previous Rx's Medication Instructions Recorded Ondansetron Odt [Zofran Odt] 4 mg PO Q8HR PRN #20 tab 01/27/23 Allergies Allergy/AdvReac Type Severity Reaction Status Date / Time bee venom protein (honey bee) Allergy Anaphylaxis Verified 10/22/23 16:06 patel flavor Allergy Itching Verified 10/22/23 16:06 grape Allergy Anaphylaxis Verified 10/22/23 16:06 Influenza Virus Vaccines Allergy Rash/Hives Verified 10/22/23 16:06 latex Allergy Rash/Hives Verified 10/22/23 16:06 Mushroom Allergy Anaphylaxis Verified 10/22/23 16:06 shellfish derived [Shrimp] Allergy Anaphylaxis Verified 10/22/23 16:06 coconut AdvReac Nausea & Verified 10/22/23 16:06 Vomiting,hives Review of Systems ROS Statement: Those systems with pertinent positive or pertinent negative responses have been documented in the HPI. ROS Other: All systems not noted in ROS Statement are negative. Past Medical History Past Medical History: Asthma, GERD/Reflux Additional Past Medical History / Comment(s): Covid 2021, chronic migraines, kidney stones History of Any Multi-Drug Resistant Organisms: None Reported Past Surgical History: No Surgical Hx Reported Past Anesthesia/Blood Transfusion Reactions: No Reported Reaction Additional Past Anesthesia/Blood Transfusion Reaction / Comment(s): no family problems w/anesthesia that she knows of Past Psychological History: Anxiety, Depression Smoking Status: Current every day smoker Past Alcohol Use History: None Reported Past Drug Use History: Marijuana - Past Family History Father Family Medical History: Asthma, Cancer, GERD/Reflux, Hypertension Additional Family Medical History / Comment(s): Melanomna Mother History Unknown: Yes Family Medical History: Thyroid Disorder Additional Family Medical History / Comment(s): Gout, TMJ, migraines, veniere d isease General Exam Limitations: no limitations General appearance: alert, in no apparent distress Head exam: Present: atraumatic, normocephalic Eye exam: Present: normal appearance, EOMI Neck exam: Present: normal inspection. Absent: meningismus Respiratory exam: Present: normal lung sounds bilaterally. Absent: respiratory distress, wheezes, rales, rhonchi, stridor Cardiovascular Exam: Present: regular rate, normal rhythm, normal heart sounds. Absent: systolic murmur, diastolic murmur, rubs, gallop, clicks GI/Abdominal exam: Present: soft, tenderness, guarding. Absent: distended, rebound, rigid Back exam: Present: CVA tenderness (L) Neurological exam: Present: alert, oriented X3 Psychiatric exam: Present: normal affect, normal mood Skin exam: Present: warm, dry Course Vital Signs 10/22/23 16:03 Temperature 97.6 F Pulse Rate 70 Respiratory 17 Rate Blood Pressure 116/68 O2 Sat by Pulse 99 Oximetry Medical Decision Making - Medical Decision Making Was pt. sent in by a medical professional or institution (, PA, PIPE CHIPPER, urgent care, hospital, or halfway...) When possible be specific @ -No Did you speak to anyone other than the patient for history (EMS, parent, family, police, friend...)? What history was obtained from this source @ -No Did you review nursing and triage notes (agree or disagree)? Why? @ -I reviewed and agree with nursing and triage notes Were old charts reviewed (outside hosp., previous admission, EMS record, old EKG, old radiological studies, urgent care reports/EKG's, halfway records)? Report findings @ -No old charts were reviewed Differential Diagnosis (chest pain, altered mental status, abdominal pain women, abdominal pain men, vaginal bleeding, weakness, fever, dyspnea, syncope, headache, dizziness, GI bleed, back pain, seizure, CVA, palpatations, mental health, musculoskeletal)? @ -MDM Differential Abdominal Pain Women: Appendicitis, Cholecystitis, diverticulosis, ischemic bowel, pancreatitis, hepatitis, UTI, gastroenteritis, AAA, incarcerated hernia, bowel obstruction, constipation, inflammatory bowel, hepatitis, peptic ulcer disease, splenic infarction, perforated viscus, vulvitis, ovarian torsion, PID, kidney stone, placenta abruption... This is not meant to be an all-inclusive list EKG interpreted by me (3pts min.). @ -As above X-rays interpreted by me (1pt min.). @ -None done CT interpreted by me (1pt min.). @ -None done U/S interpreted by me (1pt. min.). @ -None done What testing was considered but not performed or refused? (CT, X-rays, U/S, labs)? Why? @ -Ultrasound and labs ordered, patient eloped What meds were considered but not given or refused? Why? @ -Morphine and IV fluids were ordered, patient eloped Did you discuss the management of the patient with other professionals (professionals i.e. , PA, PIPE CHIPPER, lab, RT, psych nurse, social secretary, catastrophe claims supervisor, teacher, flight deck officer, manager rn case)? Give summary @ -No Was smoking cessation discussed for >3mins.? @ -No Was critical care preformed (if so, how long)? @ -No Were there social determinants of health that impacted care today? How? (Homelessness, low income, unemployed, alcoholism, drug addiction, tr ansportation, low edu. Level, literacy, decrease access to med. care, senior living, rehab)? @ -No Was there de-escalation of care discussed even if they declined (Discuss DNR or withdrawal of care, Hospice)? DNR status @ -No What co-morbidities impacted this encounter? (DM, HTN, Smoking, COPD, CAD, Cancer, CVA, ARF, Chemo, Hep., AIDS, mental health diagnosis, sleep apnea, morbid obesity)? @ -None Was patient admitted / discharged? Hospital course, mention meds given and route, prescriptions, significant lab abnormalities, going to OR and other pertinent info. @ -28-year-old female presenting with chief complaint of abdominal pain. History and physical exam are conducted. Orders are placed. RN later informs me that the patient has eloped from the ER. Undiagnosed new problem with uncertain prognosis? @ -No Drug Therapy requiring intensive monitoring for toxicity (Heparin, Nitro, Insulin, Cardizem)? @ -No Were any procedures done? @ -No Diagnosis/symptom? @ -Abdominal pain Acute, or Chronic, or Acute on Chronic? @ -Acute Uncomplicated (without systemic symptoms) or Complicated (systemic symptoms)? @ -Cannot determine Side effects of treatment? @ -No Exacerbation, Progression, or Severe Exacerbation? @ -No Poses a threat to life or bodily function? How? (Chest pain, [place], [place], pneumonia, PE, COPD, DKA, ARF, appy, cholecystitis, CVA, Diverticulitis, Homicidal, Suicidal, threat to staff... and all critical care pts) @ -Undetermined, patient eloped Disposition Clinical Impression: Abdominal pain Disposition: LEFT AGAINST MEDICAL ADVICE Condition: Undetermined Referrals: Ashley Abarca MD [Primary Care Provider] - 1-2 days
== END 2023-10-22 18:37 | disposition left against medical advice (07) ==
LOC: EC 16:01
DX: R10.9 Unspecified abdominal pain (principal); F17.200 Nicotine dependence, unspecified, uncomplicated; Z86.16 Personal history of COVID-19; Z91.030 Bee allergy status; Z88.7 Allergy status to serum and vaccine; Z91.040 Latex allergy status; Z53.29 Procedure and treatment not carried out because of patient's decision for other reasons
CPT/HCPCS: 96361; 96374; 99283